=== PATIENT | male | born 1950 | race Caucasian/White ===

== ENCOUNTER 2023-01-24 17:41 | Inpatient (IN) | payer OTHER ==
--- NOTE | 2023-01-24 18:52 | RAD REPORT ---
EXAM DESCRIPTION: RAD - Lumbar Spine 3 Views - 01/24/2023 6:35 pm CLINICAL HISTORY: PAIN COMPARISON: COCCYX dated 06/10/2015 FINDINGS/IMPRESSION: Status post T11 through L3 fusion. Fracture of the left L3 screw with some back ing out of the hardware at this level is noted. There is some lucency around the right L3 screw also. Remote L1 compression fracture. Dextroscoliotic curvature noted. Gastrostomy tube.
[2023-01-24 19:46] LABS: Absolute Lymphocytes (CBC) 0.6 K/uL (0.7-4.9); Hematocrit 33.1 % (39.6-49.0); Lymphocytes % 4.6 % (15.3-44.8); MCV 97.8 fL (80-100); Platelets 221 thou/uL (152-406); RBC Red Blood Cell Count 3.39 M/uL (4.33-5.43)
--- NOTE | 2023-01-24 20:02 | RAD REPORT ---
EXAM DESCRIPTION: CT - Head Brain Wo Cont - 01/24/2023 7:54 pm CLINICAL HISTORY: fall, head injury COMPARISON: Head Brain Wo Cont dated 05/23/2016 TECHNIQUE: All CT scans are performed using dose optimization technique as appropriate and may inclu de automated exposure control or mA/KV adjustment according to patient size. FINDINGS: No intracranial hemorrhage, hydrocephalus or extra-axial fluid collection.No areas of brai n edema or evidence of midline shift. Similar postoperative changes at the right parietal lobe and ri ght sided colpocephaly . The paranasal sinuses and mastoids are clear. The calvarium is intact. Remote right parietal cranioto my. Left-sided cochlear implant. IMPRESSION: No acute intracranial abnormality.
[2023-01-24 20:08] LABS: Albumin 2.6 g/dL (3.4-5.0); Bilirubin Total 1.4 mg/dL (0.2-1.0); Potassium 3.8 mEq/L (3.5-5.1); Protein, Total 6.5 g/dL (6.4-8.2)
--- NOTE | 2023-01-24 20:10 | RAD REPORT ---
EXAM DESCRIPTION: CTAbdomen Pelvis Wo Contrast - 01/24/2023 7:54 pm CLINICAL HISTORY: ABD PAIN COMPARISON: COCCYX dated 06/10/2015 TECHNIQUE: CT of the abdomen and pelvis was performed. All CT scans are performed using dose optimization technique as appropriate and may include automated exposure control or mA/KV adjustment according to patient size. FINDINGS: Lower chest: Small bilateral effusions. Coronary artery calcifications. Likely atelectasis . Liver: Cirrhotic liver morphology. Biliary: No biliary ductal dilatation. Stomach: Gastrostomy tube. Duodenum: No significant focal abnormality. Pancreas: No significant abnormality. Spleen: No significant abnormality. Adrenal: No suspicious lesions. Kidney/ureter: Bilateral hydronephrosis. Left renal cyst. Retroperitoneum: No retroperitoneal adenopathy. Vascular: No aneurysm. Bowel: No significant focal abnormality. Peritoneum: No ascites or free air. Small fat containing right inguinal hernia. Bladder: Distended bladder. Reproductive: Mild prostatomegaly. Bones: Remote L1 compression fracture. T11 through L3 fusion. The left L3 screw is cracked. The right L3 screw is retracted but probably similar to prior. . Other: n/a IMPRESSION: Distended bladder with bilateral hydronephrosis likely secondary to urinary retention. S uggest De Los Santos catheter placement.
[2023-01-24 21:12] LABS: Specific Gravity 1.009 (1.005-1.030); Urine Bacteria 20-50 /HPF (<20); Urine Bilirubin NEGATIVE (Negative); Urine Blood 1+ (Negative); Urine Clarity Extremely Turbid (Clear); Urine Color Light-Orange (Yellow); Urine Glucose NEGATIVE (Negative); Urine Protein 1+ (Negative); Urine Urobilinogen Normal (Normal); Urine WBC Clump Occasional /HPF (None Seen); Urine pH 5.5 (5.0-7.0)
[2023-01-24] MEDS ORDERED: CEFTRIAXONE 1000 MG/VIAL ONE (22:07)
--- NOTE | 2023-01-24 22:20 | ER ---
Nurse's Notes [facility] Name: Lamberto Simpson Age: 72 yrs Sex: Male : 1950 Arrival Date: 01/24/2023 Time: 17:41 Bed 7 Private MD: Diagnosis: UTI/ Urinary tract infection, site not specified;Acute kidney failure, unspecified;Other hydronephrosis;Retention of urine, unspecified Presentation: 01/24 17:45 Chief complaint: Patient states: Family is concerned because patient has decreased ss appetite, and possibly infected feeding tube. Family reports that patient has not used feeding tube in 2-3 weeks and is supposed to be getting it taken out in the near future. Daughter states that patient's speech is a little more slurred today. HX of CVA with residual deficits. Coronavirus screen: Client denies travel out of the [place] in the last 14 days. Ebola Screen: Patient denies exposure to infectious person. Patient denies travel to an Ebola-affected area in the 21 days before illness onset. Initial Sepsis Screen: Does the patient meet any 2 criteria? No. Patient's initial sepsis screen is negative. Does the patient have a suspected source of infection? No. Patient's initial sepsis screen is negative. Risk Assessment: Do you want to hurt yourself or someone else? Patient reports no desire to harm self or others. Onset of symptoms was January 24, 2023. 17:45 Method Of Arrival: EMS: [facility] 17:45 Acuity: GRIFFIN 3 ss Historical: - Allergies: 18:01 No Known Allergies; ss - PMHx: 18:01 Hypertension; CVA; ss - Immunization history:: Client reports receiving the 2nd dose of the Covid vaccine. - Social history:: Smoking status: Patient/guardian denies using tobacco, Stopped _ months ago 2. Screenin:45 Nutritional screening: No deficits noted. Tuberculosis screening: Never had TB. ss 19:[address] [facility] ED Fall Risk Assessment (Adult) Score/Fall Risk Level 0 - 2 = Low Risk. Abuse as6 screen: Denies threats or abuse. Denies injuries from another. Assessment: 17:45 General: Behavior is cooperative, drowsy, Denies fever, Family reports that patient has ss been tolerated PO liquids and food for the past 2-3 weeks and is awaiting appointment to have G tube removed. Redness noted at insertion site. Family is concerned that it may be infected. Denies fever. Decreased appetite and increased slurred speech today. Famly reports that patient has had some slurred speech since Stroke in November. Respiratory: Airway is patent Respiratory effort is even, unlabored. Derm: Skin is intact, is healthy with good turgor, Skin is pink, warm \T\ dry. normal. 18:53 Reassessment: Lab at bedside. mb9 22:55 Reassessment: pts , Yanet, phone number; [phone]. mb9 01/25 13:49 Reassessment: attempt to call report , floor reports HS did not communicate that pt was iw assigned to room 213, Natasha will call me back. 16:45 Reassessment: report given to MADDI Kaur. iw Vital Signs: 01/24 17:45 BP 122 / 70; Pulse 83; Resp 16; Temp 98.7(O); Pulse Ox 97% on R/A; Weight 75.75 kg; ss 19:38 BP 106 / 69; Pulse 76; Resp 18 S; Pulse Ox 96% on R/A; as6 20:39 BP 137 / 61; Pulse 62; Resp 18 S; Pulse Ox 97% on R/A; as6 21:21 BP 149 / 70; Pulse 79; Resp 16 S; Pulse Ox 97% on R/A; as6 01/25 00:02 BP 139 / 65; Pulse 73; Resp 18 S; Pulse Ox 97% on R/A; as6 ED Course: 01/24 17:44 Patient arrived in ED. iw 17:45 Michelle Uribe FNP-C is PHCP. kb 17:45 Jose Renee MD is Attending Physician. kb 18:01 Triage completed. ss 18:01 Arm band placed on right wrist. ss 18:37 Lumbar Spine (3 Views) XRAY In Process Unspecified. EDMS 18:47 Placed in gown. Bed in low position. Call light in reach. Side rails up X 1. Client mb9 placed on continuous cardiac and pulse oximetry monitoring. NIBP monitoring applied. 19:38 Tong Esteves, MADDI is Primary Nurse. as6 19:38 Inserted saline lock: 20 gauge in left upper arm, using aseptic technique. Blood as6 collected. 20g long catheter, ultrasound guided. 19:56 CT Head Brain wo Cont In Process Unspecified. EDMS 19:56 Abdomen In Process Unspecified. EDMS 20:38 De Los Santos cath inserted, using sterile technique, 16 Fr., by me, balloon inflated, to as6 gravity drainage, urine specimen collected. returned cloudy urine. Patient tolerated well. 22:19 Abe Cabrera MD is Hospitalizing Provider. kb 22:20 Catalina Norton MD is Hospitalizing Provider. kb 23:09 Mian Parker is Hospitalizing Provider. kb 01/25 00:02 Provided Education on: need for admit. as6 00:03 No provider procedures requiring assistance completed. Patient admitted, IV remains in as6 place. Administered Medications: 01/24 22:03 Drug: Rocephin IV 1 grams Route: IV; Rate: calculated rate; Site: left upper arm; as6 01/25 00:03 Follow up: Response: No adverse reaction; IV Status: Completed infusion; IV Intake: [id number] Medication: 01/24 17:45 VIS not applicable for this client. ss Intake: 01/25 00:03 IV: 10ml; Total: 10ml. as6 Output: 01/24 21:22 Urine: 1500ml (De Los Santos); Total: 1500ml. as6 Outcome: 22:19 Decision to Hospitalize by Provider. kb 01/25 00:02 Admitted to ER Hold. Please see [facility] for further documentation. as6 Condition: stable Instructed on the need for admit. 15:56 Admitted to 17:05 Patient left the ED. iw Signatures: Dispatcher [employer] EDMS Michelle Uribe, [employer]ER-Leigha [employer]ER-Sheridan Damon, RN RN Sharifa Britton, RN MADDI ss Tong Esteves RN RN as6 Ana Foster, RN RN mb9 Corrections: (The following items were deleted from the chart) 15:57 15:56 Reassessment: attempt to call report , floor reports HS did not communicate that iw pt was assigned to room 241 iw
--- NOTE | 2023-01-24 22:20 | EDPHYS ---
Physician Documentation [facility] Name: Lamberto Simpson Age: 72 yrs Sex: Male : 1950 Arrival Date: 01/24/2023 Time: 17:41 Bed 7 Private MD: ED Physician Jose Renee HPI: 01/24 22:40 This 72 yrs old Male presents to ER via EMS with complaints of Problem With Feeding kb Tube. 23:09 The patient presents with abdominal pain. Onset: The symptoms/episode began/occurred kb today. The symptoms do not radiate. Associated signs and symptoms: Pertinent positives: low back pain. The symptoms are described as constant. Modifying factors: The symptoms are alleviated by nothing, the symptoms are aggravated by nothing. Severity of pain: At its worst the pain was moderate in the emergency department the pain is unchanged. The patient has not experienced similar symptoms in the past. The patient has been recently seen by a physician:. Daughter reports patient complaining of low back pain today as well as abdominal pain. States patient fell yesterday. Denies LOC. States patient may have [place]. Reports patient recently had indwelling De Los Santos catheter removed on Tuesday in PCPs office. had to do a straight cath yesterday to empty patient's bladder. States patient has been urinating since then. Reports abdominal pain and distention today. Also request PEG tube be removed. States patient has had it for a while but has not used it in at least 3 weeks and they have an appointment with Dr. Garza to have it removed. States they are concerned that it is getting infected and is causing skin irritation.. Historical: - Allergies: 18:01 No Known Allergies; ss - PMHx: 18:01 Hypertension; CVA; ss - Immunization history:: Client reports receiving the 2nd dose of the Covid vaccine. - Social history:: Smoking status: Patient/guardian denies using tobacco, Stopped _ months ago 2. ROS: 23:05 Constitutional: Negative for fever, chills, and weight loss. kb 23:05 Abdomen/GI: Positive for abdominal pain. 23:05 Back: Positive for pain at rest, pain with movement, of the lumbar area. 23:05 All other systems are negative. Exam: 23:07 Constitutional: This is a well developed, well nourished patient who is awake, alert, kb and in no acute distress. Head/Face: Normocephalic, atraumatic. ENT: Moist Mucous membranes Cardiovascular: Regular rate and rhythm with a normal S1 and S2. No gallops, murmurs, or rubs. No pulse deficits. Respiratory: Respirations even and unlabored. No increased work of breathing. Talking in full sentences Skin: Warm, dry with normal turgor. Normal color. MS/ Extremity: Pulses equal, no cyanosis. Neurovascular intact. Full, normal range of motion. 23:07 Abdomen/GI: Inspection: distension, Bowel sounds: normal, Palpation: soft, in all quadrants, mild abdominal tenderness, in the suprapubic area. 23:07 Neuro: Exam negative for acute changes. Vital Signs: 17:45 BP 122 / 70; Pulse 83; Resp 16; Temp 98.7(O); Pulse Ox 97% on R/A; Weight 75.75 kg; ss 19:38 BP 106 / 69; Pulse 76; Resp 18 S; Pulse Ox 96% on R/A; as6 20:39 BP 137 / 61; Pulse 62; Resp 18 S; Pulse Ox 97% on R/A; as6 21:21 BP 149 / 70; Pulse 79; Resp 16 S; Pulse Ox 97% on R/A; as6 01/25 00:02 BP 139 / 65; Pulse 73; Resp 18 S; Pulse Ox 97% on R/A; as6 MDM: 01/24 17:46 Patient medically screened. kb 23:08 Differential diagnosis: non-specific abd pain, Pyelonephritis, urinary tract infection, kb urinary retention. Data reviewed: vital signs, nurses notes. Consideration of Admission/Observation Patient was admitted/placed on observation. Escalation of care including admission/observation considered. Management of patient was discussed with the following: Hospitalist: ZEB Parra accepts pt for admission under Dr Parker. Historians other than the Patient: EMS: [facility]. Spouse/Significant Other: . Daughter/Son: daughter. Counseling: I had a detailed discussion with the patient and/or guardian regarding: the historical points, exam findings, and any diagnostic results supporting the discharge/admit diagnosis, lab results, radiology results, the need for further work-up and treatment in the hospital. 01/24 17:55 Order name: CBC with Diff; Complete Time: 19:51 kb 01/24 17:55 Order name: CMP; Complete Time: 20:10 kb 01/24 17:55 Order name: Lipase; Complete Time: 20:10 kb 01/24 17:55 Order name: Urinalysis w/ reflexes; Complete Time: 21:26 kb 01/24 21:26 Order name: Urine Culture EDAZ 01/24 21:26 Order name: Lactate w/ 2H reflex if indic.; Complete Time: 22:19 kb 01/24 21:26 Order name: Blood Culture Adult (2) kb 01/24 23:16 Order name: Urinalysis w/ reflexes EDAZ 01/24 23:16 Order name: Basic Metabolic Panel EDAZ 01/24 23:16 Order name: Basic Metabolic Panel EDAZ 01/24 23:16 Order name: CBC with Automated Diff EDAZ 01/24 23:16 Order name: CBC with Automated Diff EDAZ 01/24 23:16 Order name: Magnesium EDAZ 01/24 23:16 Order name: Magnesium [facility] 01/25 02:33 Order name: CREATININE WHOLE BLOOD EDAZ 01/24 17:55 Order name: CT Head Brain wo Cont; Complete Time: 20:10 kb 01/24 17:55 Order name: Lumbar Spine (3 Views) XRAY; Complete Time: 18:58 kb 01/24 19:53 Order name: Abdomen ; Complete Time: 20:14 EDAZ 01/24 23:16 Order name: CONS Physician Consult EDAZ 01/24 23:16 Order name: Renal EDAZ 01/24 17:55 Order name: IV Saline Lock; Complete Time: 18:41 kb 01/24 17:55 Order name: Labs collected and sent; Complete Time: 19:40 kb 01/24 20:14 Order name: De Los Santos; Complete Time: 20:38 kb Administered Medications: 22:03 Drug: Rocephin IV 1 grams Route: IV; Rate: calculated rate; Site: left upper arm; as6 01/25 00:03 Follow up: Response: No adverse reaction; IV Status: Completed infusion; IV Intake: [id number] Disposition Summary: 01/24/23 22:19 Hospitalization Ordered Condition: Stable kb Problem: new kb Symptoms: are unchanged kb Bed/Room Type: Standard kb Provider: Mian Parker(07/24/23 23:09) kb Hospitalization Status: Observation(01/24/23 23:13) kb Location: Telemetry/MedSurg (observation)(01/25/23 15:37) ja1 Room Assignment: 213(01/25/23 15:37) jaRomeo Diagnosis - UTI/ Urinary tract infection, site not specified kb - Acute kidney failure, unspecified kb - Other hydronephrosis kb - Retention of urine, unspecified kb Forms: - Medication Reconciliation Form kb - SBAR form kb Signatures: Dispatcher [employer] EDMS Michelle Uribe, REPAIR MECHANIC-C REPAIR MECHANIC-Ckb Sharifa Britton, RN RN ss Kelly Walter RN RN cg Brad Guzman RN RN ja1 Tong Esteves RN RN as6 Corrections: (The following items were deleted from the chart) 01/24 19:53 17:56 Abdomen Pelvis W Con+CT.RAD.BRZ ordered. EDAZ EDAZ 22:20 22:19 Abe Cabrera kb kb 23:09 22:20 Catalina Norton kb 23:13 22:19 Inpatient Admission kb kb 23:13 22:19 Telemetry/MedSurg (Inpatient) kb kb 23:13 22:19 kb 01/25 00:15 01/24 23:13 Telemetry/MedSurg (observation) kb 01/25 00:15 01/24 23:13 kb 01/25 14:54 00:15 [facility] ER HOLD cg ja1 14:54 00:15 ERHOLD- cg ja1 14:55 14:54 Telemetry/MedSurg (observation) ja1 ja1 14:55 14:54 219 ja1 ja1 15:37 14:55 [facility] ER HOLD ja1 ja1 15:37 14:55 ERHOLD- ja1 ja1
--- NOTE | 2023-01-24 23:10 | P.HP ---
Certification for Inpatient Patient admitted to: Observation With expected LOS: <2 Midnights Patient will require the following post-hospital care: None Practitioner: I am a practitioner with admitting privileges, knowledge of patient current condition, hospital course, and medical plan of care. Services: Services provided to patient in accordance with Admission requirements found in Title 42 Section 412.3 of the Code of Federal Regulations Patient History Date of Service: 01/25/23 Reason for admission: abdominal pain History of Present Illness: 72-year-old male with a past medical history of hypertension, CVA, reports chronic anticoagulation Eliquis, presents to the emergency room for abdominal pain. is at bedside is primary historian, reports had a Zhang catheter removed at nephrology office or Tuesday. Reports has been incontinent, she reported having to straight cath him yesterday at home. Today presents to the emergency room with suprapubic abdominal tenderness. In ER Zhang inserted 1500 cc urine obtained. Patient has a PEG tube is supposed to follow-up with surgery for removal. reports reports PEG tube is irritated at incision site. Old dried drainage on PEG tube. Patient had a CVA in November, has expressive aphasia, is very hard of hearing. reports patient tolerating p.o. intake on regular diet, swallow pills whole. reports had an associated fall due to low back pain. He has a history of spinal fusions and chronic back pain. Pain located to the lumbar region. No reported fever, nausea vomiting, diarrhea chest pain, dizziness. Patient is going to be admitted for acute cystitis, acute on chronic renal failure, obstructive hydronephrosis, Dr. Blanco notified in ER will see the patient in a.m. Allergies No Known Drug Allergies Allergy (Unverified 10/02/14 19:13) Unknown Home Medications: Baclofen [Lioresal] 10 mg PO BID 05/27/15 Levetiracetam 100 mg SUBQ BID 05/27/15 cloNIDine HCL [Catapres] 0.1 mg PO TID 05/27/15 - Past Medical/Surgical History Diabetic: No -: HYPERTENSION -: HX CVA -: expressive aphaisa -: [place] CHIN -: Chronic anticoagulation -: SKIN GRAFTS FROM BLE -: RECONSTRUCTION OF ARMS/HANDS -: CERVICAL FUSION -: Peg placement - Social History Smoking Status: Never smoker Alcohol use: No CD- Drugs: Yes Caffeine use: No Review of Systems 10-point ROS is otherwise unremarkable Physical Examination - Physical Exam General: Alert, Oriented x3, Cooperative HEENT: Atraumatic, PERRLA Neck: Supple, 2+ carotid pulse no bruit Respiratory: Clear to auscultation bilaterally, Normal air movement Cardiovascular: Regular rate/rhythm, Normal S1 S2 Capillary refill: <2 Seconds Gastrointestinal: Normal bowel sounds, Other (Suprapubic tenderness) Integumentary: Other (PEG tube insertion side old dried drainage) Neurological: Other (Expressive aphasia), Abnormal speech - Studies Laboratory Data (last 24 hrs) 01/24/23 19:36: Sodium 137, Potassium 3.8, BUN 26 H, Creatinine 1.85 H, Glucose 89, Total Bilirubin 1.4 H, AST 21, ALT 26, Alkaline Phosphatase 271 H, Lipase 15 01/24/23 19:36: WBC 13.20 H, Hgb 11.0 L, Hct 33.1 L, Plt Count 221 Assessment and Plan - Plan Assessment/Plan abdominal pain acute renal failure secondary bladder retention Other hydronephrosis Retention of urine, unspecified HX CVA HX falls Chronic back pain Fracture of the left L3 screw with some backing out of the hardware Remote L1 compression fracture. Aphasia peg tube DVT pplx abdominal pain CT Abd/pelvis IMPRESSION: Distended bladder with bilateral hydronephrosis likely secondary to urinary retention. Suggest Zhang catheter placement. 1500 cc removed after zhang insertion acute renal failure Other hydronephrosis Retention of urine, unspecified Dr. Blanco notified in ER will see the patient in a.m. Acute kidney injury unknown baseline, BUN 26, creatinine 1.85, estimated GFR 38, gentle hydration, IVF Renal dose meds acute cystitis CBC leukocytosis WBCs 13.20, early left shift at 85.7, urinalysis 1+ blood, 500 leukoesterase, 11-20 RBCs, 20-50 bacteria,A Zosyn ordered Q 6 HX CVA, Aphasia HX falls -CT head IMPRESSION: No acute intracranial abnormality. Fall preacutions, PT eval Chronic back pain Fracture of the left L3 screw with some backing out of the hardware Remote L1 compression fracture. -Lumbar Spine 3 Views FINDINGS/IMPRESSION: Status post T11 through L3 fusion. Fracture of the left L3 screw with some backing out of the hardware at this level is noted. There is some lucency around the right L3 screw also. Remote L1 compression fracture. Dextroscoliotic curvature noted. Gastrostomy tube. consider ortho consult, Prn analgesics, take Tramadol, Tylenol at home Peg Tube Wound care consulted to evaluate DVT chronic anticoagultion Eloquis Full Code Diet renal Discharge Plan: Home Plan to discharge in: 24 Hours - Advance Directives Does patient have a Living Will: No Does patient have a Durable POA for Healthcare: No - Code Status/Comfort Care Code Status Assessed: Yes Code Status: Full Code Physician Review: Patient Assessed, Agree with Above Assessment and Plan Critical Care: No Time Spent Managing Pts Care (In Minutes): 50
[2023-01-24] MEDS ORDERED: ONDANSETRON 4 MG/2 ML VIAL IV PRN (23:14)
[2023-01-24] MEDS ORDERED: ACETAMINOPHEN 500 MG TAB PO PRN (23:14)
[2023-01-24] MEDS: NA CHLORIDE 0.9% 1,000 ML IV SCH (23:45)
[2023-01-25 00:32] VITALS: BMI 24.6
[2023-01-25] MEDS ORDERED: NA CHLORIDE 0.9% 1,000 ML ONE (01:14)
[2023-01-25 04:19] LABS: Absolute Lymphocytes (CBC) 0.6 K/uL (0.7-4.9); Hematocrit 32.2 % (39.6-49.0); Lymphocytes % 4.8 % (15.3-44.8); MCV 97.1 fL (80-100); MPV 8.1 fL (7.6-11.3); Platelets 211 thou/uL (152-406); RBC Red Blood Cell Count 3.32 M/uL (4.33-5.43)
[2023-01-25 04:23] LABS: Magnesium 1.9 mg/dL (1.6-2.4); Potassium 3.5 mEq/L (3.5-5.1)
[2023-01-25] MEDS ORDERED: PIPER TAZO 3.375 GM in NA CHLORIDE 0.9% 100 ML IV SCH ×4 (06:00)
[2023-01-25] MEDS: CEFTRIAXONE 1,000 MG in NA CHLORIDE 0.9% 50 ML IVPB SCH (14:33)
[2023-01-25] MEDS ORDERED: CEFTRIAXONE 1000 MG/VIAL ONE (15:58)
--- NOTE | 2023-01-25 17:51 | P.PN ---
Subjective Date of Service: 01/25/23 Chief Complaint: abdominal pain Patient has no new complaint. He denies any flank pain. He states that his appetite is good. He is hard of hearing. Physical Examination - Vital Signs Temperature: 98.7 F Blood Pressure: 139/65 Pulse: 73 Respirations: 18 Pulse Ox (%): 96 - Studies Laboratory Data (last 24 hrs) 01/24/23 19:36: Sodium 137, Potassium 3.8, BUN 26 H, Creatinine 1.85 H, Glucose 89, Total Bilirubin 1.4 H, AST 21, ALT 26, Alkaline Phosphatase 271 H, Lipase 15 01/24/23 19:36: WBC 13.20 H, Hgb 11.0 L, Hct 33.1 L, Plt Count 221 Assessment And Plan - Plan Physical Exam General: Alert, Oriented x3, Cooperative Neck: Supple, no elevated JVD. Respiratory: Clear to auscultation bilaterally, Normal air movement Cardiovascular: Regular rate/rhythm, Normal S1 S2 Gastrointestinal: Normal bowel sounds, no tenderness. Integumentary: Other (PEG tube insertion side old dried drainage) Neurological: No focal motor deficit. Diagnosis Acute renal failure secondary bladder retention Bilateral hydronephrosis Acute urinary retention HX CVA HX falls Chronic back pain Fracture of the left L3 screw with some backing out of the hardware Remote L1 compression fracture. Abdominal pain Secondary to distended bladder. Relieved after bladder decompression with De Los Santos catheter Acute renal failure hydronephrosis Acute retention of urine. Acute kidney injury unknown recent baseline. IV hydration Renal dose meds. Monitor for improvement. Repeat renal ultrasound in the near future to reassess hydronephrosis. Acute cystitis IV Rocephin. Follow urine culture. HX CVA, Aphasia HX falls Fall preacutions, PT. Chronic back pain Fracture of the left L3 screw with some backing out of the hardware Remote L1 compression fracture. -Lumbar Spine 3 Views FINDINGS/IMPRESSION: Status post T11 through L3 fusion. Fracture of the left L3 screw with some backing out of the hardware at this level is noted. There is some lucency around the right L3 screw also. Remote L1 compression fracture. Dextroscoliotic curvature noted. Gastrostomy tube. Prn analgesics. Peg Tube Wound care consulted to evaluate DVT chronic anticoagultion Eliquis
[2023-01-25] MEDS: NA CHLORIDE 0.9% 1,000 ML IV SCH (18:30)
[2023-01-25] MEDS: ALPRAZOLAM 0.25 MG TABLET PO PRN (20:23)
[2023-01-25] MEDS: BACLOFEN 10 MG TAB PO SCH (20:24)
--- NOTE | 2023-01-25 21:40 | P.CNS ---
Date of Consult: 01/25/23 Reason for Consult: MERARI Requesting Physician: cece burt Chief Complaint: abdominal pain History of Present Illness: 72-year-old male with a past medical history of hypertension, CVA, reports chronic anticoagulation Eliquis, presents to the emergency room for abdominal pain. is at bedside is primary historian, reports had a De Los Santos catheter removed at nephrology office or Tuesday. Reports has been incontinent, she reported having to straight cath him yesterday at home. Today presents to the emergency room with suprapubic abdominal tenderness. In ER De Los Santos inserted 1500 cc urine obtained. Patient has a PEG tube is supposed to follow-up with surgery for removal. reports reports PEG tube is irritated at incision site. Old dried drainage on PEG tube. Patient had a CVA in November, has expressive aphasia, is very hard of hearing. reports patient tolerating p.o. intake on regular diet, swallow pills whole. reports had an associated fall due to low back pain. He has a history of spinal fusions and chronic back pain. Pain located to the lumbar region. No reported fever, nausea vomiting, diarrhea chest pain, dizziness. Patient is going to be admitted for acute cystitis, acute on chronic renal failure, obstructive hydronephrosis, Dr. Blanco notified in ER will see the patient in a.m. [id number] 22:40 This 72 yrs old Male presents to ER via EMS with complaints of Problem With Feeding kb Tube. 23:09 The patient presents with abdominal pain. Onset: The symptoms/episode began/occurred kb today. The symptoms do not radiate. Associated signs and symptoms: Pertinent positives: low back pain. The symptoms are described as constant. Modifying factors: The symptoms are alleviated by nothing, the symptoms are aggravated by nothing. Severity of pain: At its worst the pain was moderate in the emergency department the pain is unchanged. The patient has not experienced similar symptoms in the past. The patient has been recently seen by a physician:. Daughter reports patient complaining of low back pain today as well as abdominal pain. States patient fell yesterday. Denies LOC. States patient may have [place]. Reports patient recently had indwelling De Los Santos catheter removed on Tuesday in PCPs office. had to do a straight cath yesterday to empty patient's bladder. States patient has been urinating since then. Reports abdominal pain and distention today. Also request PEG tube be removed. [facility] patient has had it for a while but has not used it in at least 3 weeks and they have an appointment with Dr. Garza to have it removed. States they are concerned that it is getting infected and is causing skin irritation.. Allergies No Known Drug Allergies Allergy (Verified 01/25/23 18:30) Unknown Home medications list reviewed: Yes Home Medications: Baclofen [Lioresal] 10 mg PO BID 05/27/15 Levetiracetam 100 mg SUBQ BID 05/27/15 cloNIDine HCL [Catapres] 0.1 mg PO TID 05/27/15 - Past Medical/Surgical History Diabetic: No -: HYPERTENSION -: HX CVA -: expressive aphaisa -: [place] -: Chronic anticoagulation -: CKD (Dr. Blanco) -: SKIN GRAFTS FROM BLE -: RECONSTRUCTION OF ARMS/HANDS -: CERVICAL FUSION -: Peg placement - Social History Alcohol use: No CD- Drugs: Yes Caffeine use: No Place of Residence: Home Review of Systems 10-point ROS is otherwise unremarkable Physical Examination Temp Pulse Resp BP Pulse Ox 101.7 F H 73 18 139/65 96 01/25/23 20:26 01/25/23 18:01 01/25/23 18:01 01/25/23 18:01 01/25/23 18:01 General: In no apparent distress, Cooperative HEENT: Atraumatic Neck: Supple Respiratory: Normal air movement Cardiovascular: No edema, Regular rate/rhythm Gastrointestinal: Soft and benign, Non-distended Musculoskeletal: No clubbing, No contractures Integumentary: No rashes, No cyanosis Neurological: Normal speech Blood work reviewed in the chart. Imagings Data: EXAM DESCRIPTION: CTAbdomen Pelvis Wo Contrast - 01/24/2023 7:54 pm CLINICAL HISTORY: ABD PAIN COMPARISON: COCCYX dated 06/10/2015 TECHNIQUE: CT of the abdomen and pelvis was performed. All CT scans are performed using dose optimization technique as appropriate and may include automated exposure control or mA/KV adjustment according to patient size. FINDINGS: Lower chest: Small bilateral effusions. Coronary artery calcifications. Likely atelectasis . Liver: Cirrhotic liver morphology. Biliary: No biliary ductal dilatation. Stomach: Gastrostomy tube. Duodenum: No significant focal abnormality. Pancreas: No significant abnormality. Spleen: No significant abnormality. Adrenal: No suspicious lesions. Kidney/ureter: Bilateral hydronephrosis. Left renal cyst. Retroperitoneum: No retroperitoneal adenopathy. Vascular: No aneurysm. Bowel: No significant focal abnormality. Peritoneum: No ascites or free air. Small fat containing right inguinal hernia. Bladder: Distended bladder. Reproductive: Mild prostatomegaly. Bones: Remote L1 compression fracture. T11 through L3 fusion. The left L3 screw is cracked. The right L3 screw is retracted but probably similar to prior. . Other: n/a IMPRESSION: Distended bladder with bilateral hydronephrosis likely secondary to urinary retention. Suggest De Los Santos catheter placement. EXAM DESCRIPTION: RAD - Lumbar Spine 3 Views - 01/24/2023 6:35 pm CLINICAL HISTORY: PAIN COMPARISON: COCCYX dated 06/10/2015 FINDINGS/IMPRESSION: Status post T11 through L3 fusion. Fracture of the left L3 screw with some backing out of the hardware at this level is noted. There is some lucency around the right L3 screw also. Remote L1 compression fracture. Dextroscoliotic curvature noted. Gastrostomy tube. EXAM DESCRIPTION: CT - Head Brain Wo Cont - 01/24/2023 7:54 pm CLINICAL HISTORY: fall, head injury COMPARISON: Head Brain Wo Cont dated 05/23/2016 TECHNIQUE: All CT scans are performed using dose optimization technique as appropriate and may include automated exposure control or mA/KV adjustment according to patient size. FINDINGS: No intracranial hemorrhage, hydrocephalus or extra-axial fluid collection.No areas of brain edema or evidence of midline shift. Similar postoperative changes at the right parietal lobe and right sided colpocephaly . The paranasal sinuses and mastoids are clear. The calvarium is intact. Remote right parietal craniotomy. Left-sided cochlear implant. IMPRESSION: No acute intracranial abnormality. Conclusions/Impression: Stage I MERARI in the setting of hypovolemia CKD III with Proteinuria -No NSAIDs -Continue IVF with NS Hypokalemia -Replete prn Hypoalbuminemia -Consider protein supplementation Anemia in chronic illness -Monitor H&H BPH with LUTS Urinary Retention -Continue De Los Santos Acute infective cystitis with hematuria -Follow up culture -Continue abx Hospitalist and ER notes reviewed. Thank you kindly for the consultation
[2023-01-26] MEDS: NA CHLORIDE 0.9% 1,000 ML IV SCH (05:30)
[2023-01-26 07:00] LABS: Absolute Lymphocytes (CBC) 0.4 K/uL (0.7-4.9); Hematocrit 31.9 % (39.6-49.0); Lymphocytes % 3.4 % (15.3-44.8); MCV 96.5 fL (80-100); MPV 8.5 fL (7.6-11.3); Platelets 227 thou/uL (152-406)
[2023-01-26 07:10] LABS: Albumin 2.2 g/dL (3.4-5.0); Phosphorus 2.3 mg/dL (2.5-4.9); Potassium 3.2 mEq/L (3.5-5.1)
[2023-01-26 08:35] LABS: Blood Morphology Comment NOT SEEN (NOT SEEN); Platelet Estimate ADEQ
[2023-01-26] MEDS: POTASS/SODIUM PHOSPHATE 1 PKT POWD.PACK PO SCH ×3 (08:43→10:14)
[2023-01-26] MEDS: CEFTRIAXONE 1,000 MG in NA CHLORIDE 0.9% 50 ML IVPB SCH (08:43)
[2023-01-26] MEDS: BACLOFEN 10 MG TAB PO SCH ×2 (08:43→19:57)
[2023-01-26] MEDS ORDERED: POTASSIUM 25 MEQ EFFERV TAB PO ONE (09:00)
--- NOTE | 2023-01-26 09:57 | P.PN ---
Date of Service: 01/26/23 Vital Signs Temp Pulse Resp BP Pulse Ox 98.4 F 81 18 116/61 95 01/26/23 08:00 01/26/23 08:00 01/26/23 08:00 01/26/23 08:00 01/26/23 08:00 Medications Acetaminophen (Acetaminophen 500 Mg Tab) 500 mg PO Q4HP PRN PRN Reason: Pain scale 2-4 (Mild) Last Admin: 01/25/23 20:26 Dose: 500 mg Alprazolam (Alprazolam 0.25 Mg Tablet) 0.25 mg PO BEDTIME PRN PRN PRN Reason: INSOMNIA Last Admin: 01/25/23 20:23 Dose: 0.25 mg Baclofen (Baclofen 10 Mg Tab) 10 mg PO BID [facility] Last Admin: 01/26/23 08:43 Dose: 10 mg Sodium Chloride (Ns 1000 Ml Ivbag) 1,000 mls @ 75 mls/hr IV .[id number] [facility] Last Admin: 01/26/23 05:30 Dose: 1,000 mls Ceftriaxone Sodium 1,000 mg/ (Sodium Chloride) 50 mls @ 100 mls/hr IVPB DAILY [facility]; Protocol Last Admin: 01/26/23 08:43 Dose: 50 mls Ondansetron HCl (Ondansetron 4 Mg/2 Ml Vial) 4 mg IV Q6HP PRN PRN Reason: NAUSEA / VOMITING Potassium Phos/Sodium Phos (Potass/Sodium Phosphate 1 Pkt Powd.Pack) 1 pkt PO Q1H [facility] Stop: 01/26/23 10:01 Last Admin: 01/26/23 09:35 Dose: 1 pkt Sodium Chloride (Flush Normal Saline 10 Ml) 10 ml IV BID [facility] Last Admin: 01/26/23 08:43 Dose: 10 ml Tramadol HCl (Tramadol Hcl 50 Mg Tab) 50 mg PO Q6H PRN PRN Reason: Pain scale 5-7 (Moderate) Lab Results (last 24 hrs) 01/26/23 06:38: Sodium 142 D, Potassium 3.2 L, Chloride 111 H, Carbon Dioxide 26, Anion Gap 8.2, BUN 20 H, Creatinine 1.29, Est GFR (CKD-EPI) 59 L, Glucose 108 H, Calcium 8.0 L, Phosphorus 2.3 L, Albumin 2.2 L 01/26/23 06:38: WBC 11.30 H, RBC 3.30 L, Hgb 10.7 L, Hct 31.9 L, MCV 96.5, MCH 32.3, MCHC 33.4, RDW 13.9, Plt Count 227, MPV 8.5, Neutrophils % 90.1 H, Lym phocytes % 3.4 L, Monocytes % 6.0, Eosinophils % 0.2, Basophils % 0.3, Absolute Neutrophils 10.2 H, Segmented Neutrophils 95 H, Absolute Lymphocytes 0.4 L, Lymphocytes 3 L, Monocytes 2, Absolute Monocytes 0.7, Absolute Eosinophils 0.0, Absolute Basophils 0.0, Platelet Estimate Adeq, Morphology Comment Not seen Microbiology Results 01/24/23 20:36 Clean Catch Urine [place] Count - Preliminary >100,000 CFU/ML. 01/24/23 20:36 Clean Catch Urine - Preliminary 01/24/23 21:58 Blood - Blood Aerobic Blood Culture - Preliminary No growth in 24 hours. 01/24/23 21:58 Blood - Blood Anaerobic Blood Culture - Preliminary No growth in 24 hours. 01/24/23 21:42 Blood - Blood Aerobic Blood Culture - Preliminary No growth in 24 hours. 01/24/23 21:42 Blood - Blood Anaerobic Blood Culture - Preliminary No growth in 24 hours. Assessment/ Plan: Nephrology No chest pain No dyspnea Feeling better today. Asking about going home. No acute events overnight Vitals, medications, blood work and imaging reviewed in the chart General: In no apparent distress, Cooperative HEENT: Atraumatic Neck: Supple Respiratory: Normal air movement Cardiovascular: No edema, Regular rate/rhythm Gastrointestinal: Soft and benign, Non-distended Musculoskeletal: No clubbing, No contractures Integumentary: No rashes, No cyanosis Neurological: Normal speech. Poor hearing. Blood work reviewed in the chart. Imagings Data: EXAM DESCRIPTION: CTAbdomen Pelvis Wo Contrast - 01/24/2023 7:54 pm CLINICAL HISTORY: ABD PAIN COMPARISON: COCCYX dated 06/10/2015 TECHNIQUE: CT of the abdomen and pelvis was performed. All CT scans are performed using dose optimization technique as appropriate and may include automated exposure control or mA/KV adjustment according to patient size. FINDINGS: Lower chest: Small bilateral effusions. Coronary artery calcifications. Likely atelectasis . Liver: Cirrhotic liver morphology. Biliary: No biliary ductal dilatation. Stomach: Gastrostomy tube. Duodenum: No significant focal abnormality. Pancreas: No significant abnormality. Spleen: No significant abnormality. Adrenal: No suspicious lesions. Kidney/ureter: Bilateral hydronephrosis. Left renal cyst. Retroperitoneum: No retroperitoneal adenopathy. Vascular: No aneurysm. Bowel: No significant focal abnormality. Peritoneum: No ascites or free air. Small fat containing right inguinal hernia. Bladder: Distended bladder. Reproductive: Mild prostatomegaly. Bones: Remote L1 compression fracture. T11 through L3 fusion. The left L3 screw is cracked. The right L3 screw is retracted but probably similar to prior. . Other: n/a IMPRESSION: Distended bladder with bilateral hydronephrosis likely secondary to urinary retention. Suggest De Los Santos catheter placement. EXAM DESCRIPTION: RAD - Lumbar Spine 3 Views - 01/24/2023 6:35 pm CLINICAL HISTORY: PAIN COMPARISON: COCCYX dated 06/10/2015 FINDINGS/IMPRESSION: Status post T11 through L3 fusion. Fracture of the left L3 screw with some backing out of the hardware at this level is noted. There is some lucency around the right L3 screw also. Remote L1 compression fracture. Dextroscoliotic curvature noted. Gastrostomy tube. EXAM DESCRIPTION: CT - Head Brain Wo Cont - 01/24/2023 7:54 pm CLINICAL HISTORY: fall, head injury COMPARISON: Head Brain Wo Cont dated 05/23/2016 TECHNIQUE: All CT scans are performed using dose optimization technique as appropriate and may include automated exposure control or mA/KV adjustment according to patient size. FINDINGS: No intracranial hemorrhage, hydrocephalus or extra-axial fluid collection.No areas of brain edema or evidence of midline shift. Similar postoperative changes at the right parietal lobe and right sided colpocephaly . The paranasal sinuses and mastoids are clear. The calvarium is intact. Remote right parietal craniotomy. Left-sided cochlear implant. IMPRESSION: No acute intracranial abnormality. Conclusions/Impression: Stage I MERARI in the setting of hypovolemia CKD III with Proteinuria -No NSAIDs -Change IVF with 1/2NS Hypokalemia -Replete as ordered Hypophosphatemia -Replete as ordered Hypoalbuminemia -Consider protein supplementation Anemia in chronic illness -Monitor H&H BPH with LUTS Urinary Retention -Continue De Los Santos Acute infective cystitis with hematuria -Follow up culture -Continue abx Hospitalist note reviewed.
[2023-01-26] MEDS ORDERED: DRISDOL (VITAMIN D=ERGOCALCIFEROL) 50000 UNIT CAP PO SCH (10:00)
[2023-01-26] MEDS: NACHLORIDE 0.45% 1,000 ML IV SCH ×2 (10:13→19:58)
--- NOTE | 2023-01-26 14:41 | P.CNS ---
Date of Consult: 01/26/23 Reason for Consult: Cystitis Requesting Physician: cece burt Chief Complaint: abdominal pain History of Present Illness: Patient is a 72 yo male with a history of hypertension, recent CVA in November 2022, hearing loss and expressive aphasia who presented to the ED with complaints of lower abdominal pain / suprapubic pain. Patient reportedly had a zhang catheter which was removed on 01/21 at his graduate assistant's office and has been experiencing urinary retention since catheter removal. CT abdomen/pelvis obtained in ED revealing distended bladder with bilateral hydronephrosis. A zhang catheter was placed in ED which drained 1500 cc urine. Nephrology on case. Urine culture with 4+ gram negative rods, ID was consulted. Allergies No Known Drug Allergies Allergy (Verified 01/25/23 18:30) Unknown Home medications list reviewed: Yes Home Medications: Baclofen [Lioresal] 10 mg PO BID 05/27/15 Levetiracetam 100 mg SUBQ BID 05/27/15 cloNIDine HCL [Catapres] 0.1 mg PO TID 05/27/15 - Past Medical/Surgical History Diabetic: No -: HYPERTENSION -: HX CVA -: expressive aphaisa -: [place]MM[place] -: Chronic anticoagulation -: CKD (Dr. Blanco) -: SKIN GRAFTS FROM BLE -: RECONSTRUCTION OF ARMS/HANDS -: CERVICAL FUSION -: Peg placement - Social History Alcohol use: No CD- Drugs: Yes Caffeine use: No Place of Residence: Home Review of Systems 10-point ROS is otherwise unremarkable General: Weakness Physical Examination Temp Pulse Resp BP Pulse Ox 98.6 F 77 18 136/86 96 01/26/23 12:00 01/26/23 12:00 01/26/23 12:00 01/26/23 12:00 01/26/23 12:00 General: In no apparent distress, Oriented x3, Cooperative HEENT: Atraumatic Neck: Supple, JVD not distended Respiratory: Clear to auscultation bilaterally, Normal air movement Cardiovascular: No edema, Regular rate/rhythm Gastrointestinal: Normal bowel sounds, Soft and benign, Non-distended, Other (PEG tube) Musculoskeletal: No clubbing, No contractures Integumentary: No rashes, No tenderness/swelling Neurological: Other (Hearing loss) Urinary: Zhang catheter Laboratory Data - Reviewed Microbiology Data - Reviewed Imagings Data: - CT abdomen pelvis 01/24: FINDINGS: Lower chest: Small bilateral effusions. Coronary artery calcifications. Likely atelectasis . Liver: Cirrhotic liver morphology. Biliary: No biliary ductal dilatation. Stomach: Gastrostomy tube. Duodenum: No significant focal abnormality. Pancreas: No significant abnormality. Spleen: No significant abnormality. Adrenal: No suspicious lesions. Kidney/ureter: Bilateral hydronephrosis. Left renal cyst. Retroperitoneum: No retroperitoneal adenopathy. Vascular: No aneurysm. Bowel: No significant focal abnormality. Peritoneum: No ascites or free air. Small fat containing right inguinal hernia. Bladder: Distended bladder. Reproductive: Mild prostatomegaly. Bones: Remote L1 compression fracture. T11 through L3 fusion. The left L3 screw is cracked. The right L3 screw is retracted but probably similar to prior. . Other: n/a IMPRESSION: Distended bladder with bilateral hydronephrosis likely secondary to urinary retention. Suggest Zhang catheter placement. - CT Head 01/24: "IMPRESSION: No acute intracranial abnormality." Conclusions/Impression: Problem List Urinary Tract Infection Urinary Retention Bilateral Hydronephrosis BPH Hypertension CKD III Hx CVA (November 2022) PEG tube Anemia Severe PCM Urinary Tract Infection, Complicated - CT abdomen pelvis 01/24: Bilateral hydronephrosis. Left renal cyst. Distended bladder. Mild prostatomegaly - Urine culture 01/24: 4+ gram-negative rods ; colony count >100,000 CFU/mL - Blood cultures 01/24: No growth to date - Currently on Rocephin IV (started 01/25) 24 hour Tmax 101.8 F Leukocytosis improving 13.2 -> 11.3 Recommendations - UTI: Continue Rocephin for now. - Will follow up with final urine culture results and adjust antibiotics as appropriate. - Monitor WBC and fever trends - Supplemental nutrition as needed - CKD: Nephrology on case Case discussed with Tiarra Rowland
--- NOTE | 2023-01-26 15:10 | P.PN ---
Subjective Date of Service: 01/26/23 Chief Complaint: abdominal pain Patient has no new complaint. He denies any flank pain. He is tolerating his diet. Physical Examination - Vital Signs Temperature: 98.6 F Blood Pressure: 136/86 Pulse: 77 Respirations: 18 Pulse Ox (%): 96 - Studies Laboratory Data (last 24 hrs) 01/26/23 06:38: Sodium 142 D, Potassium 3.2 L, BUN 20 H, Creatinine 1.29, Glucose 108 H, Phosphorus 2.3 L 01/26/23 06:38: WBC 11.30 H, Hgb 10.7 L, Hct 31.9 L, Plt Count 227 Assessment And Plan - Plan Physical Exam General: Alert, Oriented x3, Cooperative Neck: Supple, no elevated JVD. Respiratory: Clear to auscultation bilaterally, Normal air movement Cardiovascular: Regular rate/rhythm, Normal S1 S2 Gastrointestinal: Normal bowel sounds, no tenderness. Integumentary: Other (PEG tube insertion side old dried drainage) Neurological: No focal motor deficit. Diagnosis Acute renal failure secondary bladder retention Bilateral hydronephrosis Acute urinary retention HX CVA HX falls Chronic back pain Fracture of the left L3 screw with some backing out of the hardware Remote L1 compression fracture. Abdominal pain Secondary to distended bladder. Relieved after bladder decompression with De [place] Santos catheter Acute renal failure hydronephrosis Acute retention of urine. Acute kidney injury unknown recent baseline. MERARI resolved with IV hydration Renal dose meds. Repeat renal ultrasound in the near future to reassess hydronephrosis. Acute cystitis Urine culture is growing gram-negative rods Continue IV Rocephin. Follow urine culture. HX CVA, Aphasia HX falls Fall preacutions, PT. Chronic back pain Fracture of the left L3 screw with some backing out of the hardware Remote L1 compression fracture. -Lumbar Spine 3 Views FINDINGS/IMPRESSION: Status post T11 through L3 fusion. Fracture of the left L3 screw with some backing out of the hardware at this level is noted. There is some lucency around the right L3 screw also. Remote L1 compression fracture. Dextroscoliotic curvature noted. Gastrostomy tube. Prn analgesics. DVT chronic anticoagultion Eliquis
[2023-01-26] MEDS: ALPRAZOLAM 0.25 MG TABLET PO PRN (19:57)
[2023-01-27] MEDS: NACHLORIDE 0.45% 1,000 ML IV SCH ×2 (04:48→16:13)
[2023-01-27 05:30] LABS: Albumin 2.5 g/dL (3.4-5.0); Phosphorus 3.1 mg/dL (2.5-4.9); Potassium 3.4 mEq/L (3.5-5.1)
[2023-01-27] MEDS ORDERED: POTASSIUM CL SA 10 MEQ TAB PO ONE (08:00)
[2023-01-27] MEDS: CEFTRIAXONE 1,000 MG in NA CHLORIDE 0.9% 50 ML IVPB SCH (08:26)
[2023-01-27] MEDS: BACLOFEN 10 MG TAB PO SCH ×2 (08:26→20:36)
[2023-01-27 09:09] VITALS: O2SAT 97
--- NOTE | 2023-01-27 09:11 | P.DS ---
Admission Date: 01/26/23 Discharge Date: 01/28/23 Disposition: TRANSFER TO INPATIENT REHAB Discharge Condition: FAIR Reason for Admission: abdominal pain Brief History of Present Illness: 72-year-old male with a past medical history of hypertension, CVA, reports chronic anticoagulation Eliquis, presents to the emergency room for abdominal pain. is at bedside is primary historian, reports had a De Los Santos catheter removed at nephrology office or Tuesday. Reports has been incontinent, she reported having to straight cath him yesterday at home. Today presents to the emergency room with suprapubic abdominal tenderness. In ER De Los Santos inserted 1500 cc urine obtained. Patient has a PEG tube is supposed to follow-up with surgery for removal. reports reports PEG tube is irritated at incision site. Old dried drainage on PEG tube. Patient had a CVA in November, has expressive aphasia, is very hard of hearing. reports patient tolerating p.o. intake on regular diet, swallow pills whole. reports had an associated fall due to low back pain. He has a history of spinal fusions and chronic back pain. Pain located to the lumbar region. No reported fever, nausea vomiting, diarrhea chest pain, dizziness. Patient was admitted for acute cystitis, acute on chronic renal failure, obstructive hydronephrosis, Dr. Blanco notified in ER. Hospital Course: Diagnosis Acute renal failure secondary bladder retention Bilateral hydronephrosis Acute urinary retention HX CVA HX falls Chronic back pain Fracture of the left L3 screw with some backing out of the hardware Remote L1 compression fracture. Patient admitted to the medical floor and the following medical problems addressed: Abdominal pain Secondary to distended bladder. Relieved after bladder decompression with De [place] catheter Acute renal failure hydronephrosis Acute retention of urine. Acute kidney injury unknown recent baseline. MERARI resolved with IV hydration Renal dose meds. Repeat renal ultrasound in the near future to reassess hydronephrosis. Acute cystitis Urine culture is grew Klebsiella oxytoca Patient treated with IV Rocephin and then transitioned to oral Levaquin based on sensitivity HX CVA, Aphasia HX falls/delirium Fall preacutions, PT. Per report, patient has been tolerating diet and currently has no dysphagia. He was scheduled to have his PEG tube removed prior to admission. General surgery consulted, patient seen by Dr. Garza and PEG tube removed. He was given Haldol as needed for agitated delirium. Patient accepted to inpatient rehab at [facility]. Chronic back pain Fracture of the left L3 screw with some backing out of the hardware Remote L1 compression fracture. -Lumbar Spine 3 Views FINDINGS/IMPRESSION: Status post T11 through L3 fusion. Fracture of the left L3 screw with some backing out of the hardware at this level is noted. There is some lucency around the right L3 screw also. Remote L1 compression fracture. Dextroscoliotic curvature noted. Prn analgesics. Follow-up as outpatient. DVT chronic anticoagultion Eliquis Vital Signs/Physical Exam: Temp Pulse Resp BP Pulse Ox 98.7 F 59 18 178/85 H 97 01/27/23 08:00 01/27/23 08:00 01/27/23 08:00 01/27/23 08:00 01/27/23 08:00 General: In no apparent distress HEENT: Mucous membr. moist/pink Neck: JVD not distended Respiratory: Clear to auscultation bilaterally, Normal air movement Cardiovascular: Regular rate/rhythm, Normal S1 S2 Gastrointestinal: Soft and benign, Non-distended Integumentary: No cyanosis Neurological: Other (No focal motor deficit, intermittent agitation) Laboratory Data at Discharge: WBC 11.30 thou/uL (4.3-10.9) H 01/26/23 06:38 Hgb 10.7 g/dL (13.6-17.9) L 01/26/23 06:38 Hct 31.9 % (39.6-49.0) L 01/26/23 06:38 Plt Count 227 thou/uL (152-406) 01/26/23 06:38 Sodium 139 mEq/L (136-145) 01/27/23 04:37 Potassium 3.4 mEq/L (3.5-5.1) L D 01/27/23 04:37 BUN 17 mg/dL (7-18) 01/27/23 04:37 Creatinine 1.10 mg/dL (0.70-1.30) 01/27/23 04:37 Glucose 88 mg/dL (74-106) 01/27/23 04:37 Phosphorus 3.1 mg/dL (2.5-4.9) 01/27/23 04:37 Magnesium 1.9 mg/dL (1.6-2.4) 01/25/23 03:58 Total Bilirubin 1.4 mg/dL (0.2-1.0) H 01/24/23 19:36 AST 21 U/L (15-37) 01/24/23 19:36 ALT 26 U/L (16-61) 01/24/23 19:36 Alkaline Phosphatase 271 U/L (45-117) H 01/24/23 19:36 Lipase 15 U/L (13-75) 01/24/23 19:36 Home Medications: Levetiracetam 100 mg SUBQ BID 05/27/15 cloNIDine HCL [Catapres*] 0.1 mg PO TID 05/27/15 Vitamin D [Drisdol*] 50,000 unit PO Q7D #4 cap 01/27/23 levoFLOXacin [Levaquin*] 750 mg PO DAILY #10 tab 01/27/23 Quetiapine [Seroquel*] 25 mg PO BID #0 tab 01/28/23 New Medications: Vitamin D [Drisdol*] 50,000 unit PO Q7D #4 cap levoFLOXacin [Levaquin*] 750 mg PO DAILY #10 tab Diet: AHA Activity: Fall precautions Followup: Joshua Morrison [ACTIVE - CAN ADMIT] - (Wthin 2 weeks) Boogie Blanco DO [Primary Care Provider] - 1 Week
--- NOTE | 2023-01-27 09:26 | P.PN ---
Date of Service: 01/27/23 Chief Complaint: abdominal pain Subjective: Improving. Patient seen and examined at bedside. Denies any new or worsening complaints. No acute events reported overnight. at bedside. Discussed plan of care. Physical Examination Temp Pulse Resp BP Pulse Ox 98.6 F 77 18 136/86 96 01/26/23 12:00 01/26/23 12:00 01/26/23 12:00 01/26/23 12:00 01/26/23 12:00 General: In no apparent distress, Oriented x2, Cooperative HEENT: Atraumatic, normocephalic. Hearing aid right ear. Neck: Supple, JVD not distended Respiratory: Clear to auscultation bilaterally, Normal air movement Cardiovascular: No edema, Regular rate/rhythm Gastrointestinal: Normal bowel sounds, Soft and benign, Non-distended, PEG tube. Musculoskeletal: No clubbing, No contractures Integumentary: No rashes, No tenderness/swelling Neurological: Hearing loss. Urinary: De [place] Santos catheter Studies Laboratory Data - Reviewed Microbiology Data - Reviewed Imagings Data: - CT abdomen pelvis 01/24: "FINDINGS: Lower chest: Small bilateral effusions. Coronary artery calcifications. Likely atelectasis . Liver: Cirrhotic liver morphology. Biliary: No biliary ductal dilatation. Stomach: Gastrostomy tube. Duodenum: No significant focal abnormality. Pancreas: No significant abnormality. Spleen: No significant abnormality. Adrenal: No suspicious lesions. Kidney/ureter: Bilateral hydronephrosis. Left renal cyst. Retroperitoneum: No retroperitoneal adenopathy. Vascular: No aneurysm. Bowel: No significant focal abnormality. Peritoneum: No ascites or free air. Small fat containing right inguinal hernia. Bladder: Distended bladder. Reproductive: Mild prostatomegaly. Bones: Remote L1 compression fracture. T11 through L3 fusion. The left L3 screw is cracked. The right L3 screw is retracted but probably similar to prior. . Other: n/a IMPRESSION: Distended bladder with bilateral hydronephrosis likely secondary to urinary retention. Suggest De [place] Santos catheter placement." - CT Head 01/24: "IMPRESSION: No acute intracranial abnormality." Medication List: Reviewed Assessment and Plan: Problem List Urinary Tract Infection Urinary Retention Bilateral Hydronephrosis BPH Hypertension CKD III Hx CVA (November 2022) PEG tube Anemia Severe PCM History of Nocardia Infection Urinary Tract Infection, Complicated - CT abdomen pelvis 01/24: Bilateral hydronephrosis. Left renal cyst. Distended bladder. Mild prostatomegaly - Urinary retention, PRN straight cath at home per . - Urine culture 01/24: Klebsiella oxytoca - Rocephin IV (01/25-) switched to Levaquin PO on 01/27 24 hour Tmax 101.8 F Leukocytosis improving 13.2 -> 11.3 Blood cultures 01/24: No growth to date - Patient has a history of Nocardia infection in 2016 for which he has been seeing an Infectious Disease specialist (Dr. Quiñonez?) and has been on Bactrim since 2015 up until November 2022. - PEG tube was placed in November of 2022 during hospitalization for CVA with resulting dysphagia. Per the patient's , his peg tube was supposed to be removed a few weeks ago as patient is able to swallow and has good PO intake. Recommendations - Urine culture growing Klebsiella oxytoca. Patient switched to Levaquin PO from Rocephin IV. Continue antibiotic therapy x 7 days (started 01/25). - Supplemental nutrition as needed - Monitor WBC and fever trends - Renally dose medications. CKD, nephrology following. Case discussed with Tiarra Rowland
[2023-01-27] MEDS: levoFLOXacin 750 MG TAB PO SCH (09:27)
--- NOTE | 2023-01-27 11:06 | P.PN ---
Date of Service: 01/27/23 Vital Signs Temp Pulse Resp BP Pulse Ox 98.7 F 59 18 178/85 H 97 01/27/23 08:00 01/27/23 08:00 01/27/23 08:00 01/27/23 08:00 01/27/23 08:00 Medications Acetaminophen (Acetaminophen 500 Mg Tab) 500 mg PO Q4HP PRN PRN Reason: Pain scale 2-4 (Mild) Last Admin: 01/25/23 20:26 Dose: 500 mg Alprazolam (Alprazolam 0.25 Mg Tablet) 0.25 mg PO BEDTIME PRN PRN PRN Reason: INSOMNIA Last Admin: 01/26/23 19:57 Dose: 0.25 mg Baclofen (Baclofen 10 Mg Tab) 10 mg PO BID [facility] Last Admin: 01/27/23 08:26 Dose: 10 mg Ergocalciferol (Drisdol (Vitamin D=Ergocalciferol) 15492 Unit Cap) 50,000 unit PO Q7D [facility] Last Admin: 01/26/23 10:13 Dose: 50,000 unit Sodium Chloride (Sodium Chloride 0.45%) 1,000 mls @ 100 mls/hr IV .Q10H [facility] Last Admin: 01/27/23 04:48 Dose: 1,000 mls Levofloxacin (Levofloxacin 750 Mg Tab) 750 mg PO DAILY [facility] Stop: 02/07/23 09:01 Last Admin: 01/27/23 09:27 Dose: 750 mg Ondansetron HCl (Ondansetron 4 Mg/2 Ml Vial) 4 mg IV Q6HP PRN PRN Reason: NAUSEA / VOMITING Sodium Chloride (Flush Normal Saline 10 Ml) 10 ml IV BID [facility] Last Admin: 01/27/23 08:26 Dose: 10 ml Tramadol HCl (Tramadol Hcl 50 Mg Tab) 50 mg PO Q6H PRN PRN Reason: Pain scale 5-7 (Moderate) Microbiology Results 01/24/23 20:36 Clean Catch Urine [place] Count - Final >100,000 CFU/ML. 01/24/23 20:36 Clean Catch Urine - Final Klebsiella Oxytoca 01/24/23 21:58 Blood - Blood Aerobic Blood Culture - Preliminary No growth in 24 hours. 01/24/23 21:58 Blood - Blood Anaerobic Blood Culture - Preliminary No growth in 24 hours. 01/24/23 21:42 Blood - Blood Aerobic Blood Culture - Preliminary No growth in 24 hours. 01/24/23 21:42 Blood - Blood Anaerobic Blood Culture - Preliminary No growth in 24 hours. Assessment/ Plan: Nephrology No chest pain No dyspnea Doing well No acute events overnight Case reviewed with the Vitals, medications, blood work and imaging reviewed in the chart General: In no apparent distress, Cooperative HEENT: Atraumatic Neck: Supple Respiratory: Normal air movement Cardiovascular: No edema, Regular rate/rhythm Gastrointestinal: Soft and benign, Non-distended Musculoskeletal: No clubbing, No contractures Integumentary: No rashes, No cyanosis Neurological: Normal speech. Poor hearing. Blood work reviewed in the chart. Imagings Data: EXAM DESCRIPTION: CTAbdomen Pelvis Wo Contrast - 01/24/2023 7:54 pm CLINICAL HISTORY: ABD PAIN COMPARISON: COCCYX dated 06/10/2015 TECHNIQUE: CT of the abdomen and pelvis was performed. All CT scans are performed using dose optimization technique as appropriate and may include automated exposure control or mA/KV adjustment according to patient size. FINDINGS: Lower chest: Small bilateral effusions. Coronary artery calcifications. Likely atelectasis . Liver: Cirrhotic liver morphology. Biliary: No biliary ductal dilatation. Stomach: Gastrostomy tube. Duodenum: No significant focal abnormality. Pancreas: No significant abnormality. Spleen: No significant abnormality. Adrenal: No suspicious lesions. Kidney/ureter: Bilateral hydronephrosis. Left renal cyst. Retroperitoneum: No retroperitoneal adenopathy. Vascular: No aneurysm. Bowel: No significant focal abnormality. Peritoneum: No ascites or free air. Small fat containing right inguinal hernia. Bladder: Distended bladder. Reproductive: Mild prostatomegaly. Bones: Remote L1 compression fracture. T11 through L3 fusion. The left L3 screw is cracked. The right L3 screw is retracted but probably similar to prior. . Other: n/a IMPRESSION: Distended bladder with bilateral hydronephrosis likely secondary to urinary retention. Suggest De [place] Santos catheter placement. EXAM DESCRIPTION: RAD - Lumbar Spine 3 Views - 01/24/2023 6:35 pm CLINICAL HISTORY: PAIN COMPARISON: COCCYX dated 06/10/2015 FINDINGS/IMPRESSION: Status post T11 through L3 fusion. Fracture of the left L3 screw with some backing out of the hardware at this level is noted. There is some lucency around the right L3 screw also. Remote L1 compression fracture. Dextroscoliotic curvature noted. Gastrostomy tube. EXAM DESCRIPTION: CT - Head Brain Wo Cont - 01/24/2023 7:54 pm CLINICAL HISTORY: fall, head injury COMPARISON: Head Brain Wo Cont dated 05/23/2016 TECHNIQUE: All CT scans are performed using dose optimization technique as appropriate and may include automated exposure control or mA/KV adjustment according to patient size. FINDINGS: No intracranial hemorrhage, hydrocephalus or extra-axial fluid collection.No areas of brain edema or evidence of midline shift. Similar postoperative changes at the right parietal lobe and right sided colpocephaly . The paranasal sinuses and mastoids are clear. The calvarium is intact. Remote right parietal craniotomy. Left-sided cochlear implant. IMPRESSION: No acute intracranial abnormality. Conclusions/Impression: Stage I MERARI in the setting of hypovolemia CKD III with Proteinuria -No NSAIDs -Continue IVF with 1/2NS Hypokalemia -Replete as ordered Hypophosphatemia -Replete prn -Maintain nutrition Hypoalbuminemia -Consider protein supplementation Anemia in chronic illness -Monitor H&H BPH with LUTS Urinary Retention -Continue De [place] Acute Klebsiella cystitis with hematuria -Continue abx -Hx of chronic nocardia infection from 2015 reviewed with ID Hospitalist note reviewed. Case reviewed with Dr. Parker Patient has been tolerating oral intake for several weeks; the PEG tube may be removed at this time
[2023-01-27] MEDS ORDERED: HALOPERIDOL LACT 5 MG/ML INJ IV ONE (12:00)
--- NOTE | 2023-01-27 16:00 | P.PN ---
Subjective Date of Service: 01/27/23 Chief Complaint: abdominal pain Patient has no new complaint. He is a bit agitated today. He is tolerating his diet. Physical Examination - Vital Signs Temperature: 98.6 F Blood Pressure: 156/74 Pulse: 64 Respirations: 18 Pulse Ox (%): 97 - Studies Microbiology Data (last 24 hrs): 01/24/23 20:36 Clean Catch Urine [place] Count - Final >100,000 CFU/ML. 01/24/23 20:36 Clean Catch Urine - Final Klebsiella Oxytoca Assessment And Plan - Plan Physical Exam General: Alert, Oriented x3, Cooperative Neck: Supple, no elevated JVD. Respiratory: Clear to auscultation bilaterally, Normal air movement Cardiovascular: Regular rate/rhythm, Normal S1 S2 Gastrointestinal: Normal bowel sounds, no tenderness. Integumentary: Other (PEG tube insertion side old dried drainage) Neurological: No focal motor deficit. Diagnosis Acute renal failure secondary bladder retention Bilateral hydronephrosis Acute urinary retention HX CVA HX falls Chronic back pain Fracture of the left L3 screw with some backing out of the hardware Remote L1 compression fracture. Abdominal pain Secondary to distended bladder. Relieved after bladder decompression with [place] catheter Acute renal failure hydronephrosis Acute retention of urine. Acute kidney injury unknown recent baseline. MERARI resolved with IV hydration Renal dose meds. Repeat renal ultrasound in the near future to reassess hydronephrosis. Acute cystitis Urine culture is growing Klebsiella oxytoca Antibiotics changed to oral Levaquin based on sensitivity HX CVA, Aphasia HX falls/delirium Fall preacutions, PT. Patient is requesting to go to inpatient rehab. Per report, patient has been tolerating diet and currently has no dysphagia. He was scheduled to have his PEG tube removed prior to admission. We will consult Dr. Garza for PEG tube removal. Haldol as needed for agitated delirium. Chronic back pain Fracture of the left L3 screw with some backing out of the hardware Remote L1 compression fracture. -Lumbar Spine 3 Views FINDINGS/IMPRESSION: Status post T11 through L3 fusion. Fracture of the left L3 screw with some backing out of the hardware at this level is noted. There is some lucency around the right L3 screw also. Remote L1 compression fracture. Dextroscoliotic curvature noted. Prn analgesics. DVT chronic anticoagultion Eliquis
[2023-01-27] MEDS: TRAMADOL HCL 50 MG TAB PO PRN (17:26)
[2023-01-28] MEDS: ALPRAZOLAM 0.25 MG TABLET PO PRN (01:26)
[2023-01-28] MEDS: NACHLORIDE 0.45% 1,000 ML IV SCH ×2 (02:00→09:51)
[2023-01-28 03:03] LABS: Absolute Lymphocytes (CBC) 0.8 K/uL (0.7-4.9); Lymphocytes % 10.5 % (15.3-44.8); MCV 96.2 fL (80-100); MPV 8.4 fL (7.6-11.3); Platelets 246 thou/uL (152-406); RBC Red Blood Cell Count 3.11 M/uL (4.33-5.43)
[2023-01-28 03:15] LABS: Albumin 2.5 g/dL (3.4-5.0); Phosphorus 2.9 mg/dL (2.5-4.9); Potassium 3.5 mEq/L (3.5-5.1)
[2023-01-28] MEDS: TRAMADOL HCL 50 MG TAB PO PRN (04:15)
[2023-01-28] MEDS ORDERED: HALOPERIDOL LACT 5 MG/ML INJ IV ONE ×2 (04:30→14:20)
--- NOTE | 2023-01-28 08:58 | P.PN ---
Date of Service: 01/28/23 Chief Complaint: abdominal pain Subjective: Improving. No new changes. No acute events reported overnight. Denies any new or worsening complaints. Physical Examination Temp Pulse Resp BP Pulse Ox 97.8 F 76 18 163/75 H 96 01/28/23 08:00 01/28/23 08:00 01/28/23 08:00 01/28/23 08:00 01/28/23 08:00 General: In no apparent distress, Oriented x2, Cooperative HEENT: Atraumatic, normocephalic. Hearing aid right ear. Neck: Supple, JVD not distended Respiratory: Clear to auscultation bilaterally, Normal air movement Cardiovascular: No edema, Regular rate/rhythm Gastrointestinal: Normal bowel sounds, Soft and benign, Non-distended, PEG tube. Musculoskeletal: No clubbing, No contractures Integumentary: No rashes, No tenderness/swelling Neurological: Hearing loss. Urinary: [place] catheter Studies Laboratory Data - Reviewed Microbiology Data - Reviewed Imagings Data: -- CT abdomen pelvis 01/24: "FINDINGS: Lower chest: Small bilateral effusions. Coronary artery calcifications. Likely atelectasis . Liver: Cirrhotic liver morphology. Biliary: No biliary ductal dilatation. Stomach: Gastrostomy tube. Duodenum: No significant focal abnormality. Pancreas: No significant abnormality. Spleen: No significant abnormality. Adrenal: No suspicious lesions. Kidney/ureter: Bilateral hydronephrosis. Left renal cyst. Retroperitoneum: No retroperitoneal adenopathy. Vascular: No aneurysm. Bowel: No significant focal abnormality. Peritoneum: No ascites or free air. Small fat containing right inguinal hernia. Bladder: Distended bladder. Reproductive: Mild prostatomegaly. Bones: Remote L1 compression fracture. T11 through L3 fusion. The left L3 screw is cracked. The right L3 screw is retracted but probably similar to prior. . Other: n/a IMPRESSION: Distended bladder with bilateral hydronephrosis likely secondary to urinary retention. Suggest De [place] Santos catheter placement." -- CT Head 01/24: "IMPRESSION: No acute intracranial abnormality." Medication List: Reviewed Assessment and Plan: Problem List Urinary Tract Infection Urinary Retention Bilateral Hydronephrosis BPH Hypertension CKD III Hx CVA (November 2022) PEG tube Anemia Severe PCM History of Nocardia Infection Urinary Tract Infection, Complicated - CT abdomen pelvis 01/24: Bilateral hydronephrosis. Left renal cyst. Distended bladder. Mild prostatomegaly - Urinary retention, PRN straight cath at home per . - Urine culture 01/24: Klebsiella oxytoca - Rocephin IV (01/25-) switched to Levaquin PO on 01/27 Afebrile >48 hours. Leukocytosis improved 13.2 -> 11.3 -> 7.9 Blood cultures 01/24: No growth to date - Patient has a history of Nocardia infection in 2016 for which he has been seeing an Infectious Disease specialist (Dr. Quiñonez?) and has been on Bactrim since 2015 up until November 2022. - PEG tube was placed in November of 2022 during hospitalization for CVA with resulting dysphagia. Per the patient's , his peg tube was supposed to be removed a few weeks ago as patient is able to swallow and has good PO intake. Recommendations - UTI: On Levaquin PO. Continue antibiotic therapy x 7 days (started 01/25). - Supplemental nutrition as needed - Monitor WBC and fever trends - Renally dose medications. CKD, nephrology following. Case discussed with Tiarra Rowland
[2023-01-28] MEDS: BACLOFEN 10 MG TAB PO SCH (09:51)
[2023-01-28] MEDS: levoFLOXacin 750 MG TAB PO SCH (09:51)
[2023-01-28] MEDS ORDERED: POTASSIUM CL SA 10 MEQ TAB PO ONE (10:35)
[2023-01-28] MEDS ORDERED: QUETIAPINE 25 MG TAB PO ONE (14:00)
--- NOTE | 2023-01-28 14:15 | CON ---
Date of Consultation: 01/28/2023 Brief History Of Present Illness: Patient is a 72-year-old male with a history of hypertension, CVA, who is accompanied by his , who is at the bedside during my examination and conversation and int octavio, who presents with a history of a CVA requiring a PEG tube several months ago. The PEG tube w as placed in early November by her description, but they have not used it for any sort of feeding access o r usage of any kind for the past over month. He has been eating, tolerating diet, maintaining his nu tritional goals and is not having any swallowing difficulty. As such, patient's has requested r emoval of the PEG tube. Patient is essentially completely confused and unable to give me any informa tion. As such, information is obtained predominantly from the chart and from the patient's who is at the bedside as described. Past Medical History: Hypertension, CVA, expressive aphasia. He is on chronic anticoagulation. Past Surgical History: Includes PEG tube placement approximately 3 months ago, skin grafts in bilate ral lower extremities, reconstruction of arm and hands, cervical fusion. Social History: No history of smoking, alcohol, recreational drug use. Review of Systems: 10-point review of systems is unable to obtain. Allergies: NO KNOWN DRUG ALLERGIES. Home Medications: Include baclofen, levetiracetam, and clonidine. Physical Examination: General: At the time of my examination, he is awake and alert, but he is completely disoriented. HEENT: Normocephalic. His sclerae are anicteric. Mucous membranes are moist. Oropharynx clear. Neck: Supple without JVD. Chest: Expansion and excursion. Cardiovascular: Regular rate and rhythm. Pulmonary: Clear to auscultation bilaterally. Abdomen: Soft. There is a PEG tube in place. It appears to have a good track with some crusting ti ssue around it. There are no sutures holding in place. Skin: Warm and dry otherwise. Laboratory Data: Revealed a white blood count of 7.9, hemoglobin 10, hematocrit 30, platelet count i s 246. Chemistry showed a sodium 141, potassium 3.5, chloride 108, carbon dioxide 26, BUN 14, creati nine 1.0, glucose 107. He had a head CT on 01/24 officially read as no acute intracranial abnormalit y. He additionally had an abdomen and pelvis CT on 01/24, also officially read as distended bladder with bilateral hydronephrosis likely secondary to urinary retention suggest [place] catheter placement. Stomach had a gastrostomy tube placement. Assessment/plan: This is a 72-year-old male who has a PEG tube in place for which he has no use at t his time. As such, at the request of the patient's family and as the patient has not used this in ov er a month and has been doing well without usage and need of the PEG tube. I have discussed risks, b enefits, and alternatives of removal of PEG tube at the bedside, including but not limited to bleedin g, infection, damage to surrounding tissue, need of further operation procedures. Patient's family a greed to proceed as indicated. PEG tube will be removed at bedside immediately. KATHY/DENISE Voice ID: [id number] Report ID: [id number]
[2023-01-28] MEDS ORDERED: QUETIAPINE 25 MG TAB PO SCH (15:23)
[2023-01-28 16:57] VITALS: BP 162/88; TEMP 97.4
[2023-01-29] MEDS ORDERED: POTASSIUM CL SA 10 MEQ TAB PO SCH (09:00)
[2023-01-29] MEDS ORDERED: POTASSIUM CL SA 10 MEQ TAB PO ONE (10:19)
== END 2023-01-28 17:47 | DRG 699 ==
LOC: ER 17:41 → ERHOLD 23:10 → 2ND 01-25 17:02 → OBSVTOIN 01-26 09:07
PROVIDERS: ADMIT Internal Medicine; ATTEND Internal Medicine
DX: T83.511A Infection and inflammatory reaction due to indwelling urethral catheter, initial encounter (principal); N13.6 Pyonephrosis; R47.01 Aphasia; N17.9 Acute kidney failure, unspecified; I12.9 Hypertensive chronic kidney disease with stage 1 through stage 4 chronic kidney disease, or unspecified chronic kidney disease; N18.30 Chronic kidney disease, stage 3 unspecified; D63.1 Anemia in chronic kidney disease; D63.8 Anemia in other chronic diseases classified elsewhere; G89.29 Other chronic pain; M54.9 Dorsalgia, unspecified; N28.1 Cyst of kidney, acquired; E87.6 Hypokalemia; E83.39 Other disorders of phosphorus metabolism; E88.09 Other disorders of plasma-protein metabolism, not elsewhere classified; N40.1 Benign prostatic hyperplasia with lower urinary tract symptoms; M48.56XD Collapsed vertebra, not elsewhere classified, lumbar region, subsequent encounter for fracture with routine healing; B96.1 Klebsiella pneumoniae [K. pneumoniae] as the cause of diseases classified elsewhere; R31.9 Hematuria, unspecified; R33.8 Other retention of urine; Z91.81 History of falling; Z86.73 Personal history of transient ischemic attack (TIA), and cerebral infarction without residual deficits; Z79.01 Long term (current) use of anticoagulants; Z87.891 Personal history of nicotine dependence; Z79.899 Other long term (current) drug therapy; Y84.6 Urinary catheterization as the cause of abnormal reaction of the patient, or of later complication, without mention of misadventure at the time of the procedure
CPT/HCPCS: 36415; 51702; 70450; 72100; 74176; 80048; 80053; 80069; 81001; 82565; 83605; 83690; 83735; 84132; 85025; 87040; 87077; 87086; 87088; 87186; 96365; 96366; 97116; 97162; 97165; 97530; 99285; J0696; J1630; J7030

== ENCOUNTER 2023-03-08 14:44 | Inpatient (IN) | payer OTHER ==
[2023-03-08 15:27] LABS: Absolute Lymphocytes (CBC) 0.3 K/uL (0.7-4.9); Hematocrit 32.3 % (39.6-49.0); Lymphocytes % 1.8 % (15.3-44.8); MPV 7.4 fL (7.6-11.3); Platelets 189 thou/uL (152-406); RBC Red Blood Cell Count 3.37 M/uL (4.33-5.43)
[2023-03-08 15:33] LABS: Protime INR 1.82
[2023-03-08 15:45] LABS: Albumin 2.7 g/dL (3.4-5.0); Bilirubin Total 0.9 mg/dL (0.2-1.0); Potassium 3.3 mEq/L (3.5-5.1); Troponin High Sensitivity 37.2 pg/mL (<58.9)
--- NOTE | 2023-03-08 16:07 | RAD REPORT ---
EXAM DESCRIPTION: [place] Single View03/08/2023 3:31 pm CLINICAL HISTORY: Tachycardia COMPARISON: 2014 FINDINGS: Mild bilateral pulmonary opacities Heart is normal size IMPRESSION: Mild bilateral pulmonary opacities may indicate interstitial pulmonary edema, pneumonia or pneumonitis
[2023-03-08 17:35] LABS: Urine Bacteria 20-50 /HPF (<20); Urine Bilirubin NEGATIVE (Negative); Urine Blood 1+ (Negative); Urine Clarity Extremely Turbid (Clear); Urine Color Yellow (Yellow); Urine Glucose NEGATIVE (Negative); Urine Mucus Slight /HPF (None Seen); Urine Protein 1+ (Negative); Urine Urobilinogen Normal (Normal)
[2023-03-08 17:47] LABS: SARS-CoV-2 Antigen Rapid Res Negative (Negative)
--- NOTE | 2023-03-08 17:50 | EDPHYS ---
Physician Documentation [facility] Name: Lamberto Simpson Age: 72 yrs Sex: Male : 1950 Arrival Date: 03/08/2023 Time: 14:44 Bed 13 Private MD: ED Physician Reynold Cabrera HPI: 03/08 15:30 This 72 yrs old Male presents to ER via EMS with complaints of elevated heart rate per snw OT today. 15:30 Pt with CVA in November. In and out of the hospital since. most often for UTI. Pt has zhang snw that had not been draining recently, now draining but would like to r/o infection. Severity of symptoms: At their worst the symptoms were very mild. The patient has experienced similar episodes in the past. as noted. Historical: - Allergies: 14:54 No Known Allergies; ko1 - PMHx: 14:54 CVA; Hypertension; ko1 - Immunization history:: Adult Immunizations unknown. - Social history:: Smoking status: Patient/guardian denies using tobacco. ROS: 15:32 Constitutional: Negative for fever, chills, and weight loss, Eyes: Negative for injury, snw pain, redness, and discharge, ENT: Negative for injury, pain, and discharge, Neck: Negative for injury, pain, and swelling, Respiratory: Negative for shortness of breath, cough, wheezing, and pleuritic chest pain, Abdomen/GI: Negative for abdominal pain, nausea, vomiting, diarrhea, and constipation, Back: Negative for injury and pain, : Negative for injury, bleeding, discharge, and swelling, zhang intact MS/Extremity: Negative for injury and deformity, Skin: Negative for injury, rash, and discoloration, Neuro: Negative for headache, weakness, numbness, tingling, and seizure, Psych: Negative for depression, anxiety, suicide ideation, homicidal ideation, and hallucinations. 15:32 Cardiovascular: Positive for HR noted to be higher than normal per OT. Exam: 15:29 Head/Face: Normocephalic, atraumatic. Eyes: Pupils equal round and reactive to light, snw extra-ocular motions intact. Lids and lashes normal. Conjunctiva and sclera are non-icteric and not injected. Cornea within normal limits. Periorbital areas with no swelling, redness, or edema. ENT: Nares patent. No nasal discharge, no septal abnormalities noted. Tympanic membranes are normal and external auditory canals are clear. Oropharynx with no redness, swelling, or masses, exudates, or evidence of obstruction, uvula midline. Mucous membranes moist. Neck: Trachea midline, no thyromegaly or masses palpated, and no cervical lymphadenopathy. Supple, full range of motion without nuchal rigidity, or vertebral point tenderness. No Meningismus. Chest/axilla: Normal chest wall appearance and motion. Nontender with no deformity. No lesions are appreciated. 15:29 Respiratory: Lungs have equal breath sounds bilaterally, clear to auscultation and percussion. No rales, rhonchi or wheezes noted. No increased work of breathing, no retractions or nasal flaring. Abdomen/GI: Soft, non-tender, with normal bowel sounds. No distension or tympany. No guarding or rebound. No evidence of tenderness throughout. Back: No spinal tenderness. No costovertebral tenderness. Full range of motion. Skin: Warm, dry with normal turgor. Normal color with no rashes, no lesions, and no evidence of cellulitis. MS/ Extremity: Pulses equal, no cyanosis. Neurovascular intact. Full, normal range of motion. Neuro: Awake and alert, GCS 15, oriented to person, place, time, and situation. Cranial nerves II-XII grossly intact. Motor strength 5/5 in all extremities. Sensory grossly intact. Cerebellar exam normal. Normal gait. Psych: Awake, alert, with orientation to person, place and time. Behavior, mood, and affect are within normal limits. 15:29 Constitutional: The patient appears alert, awake. 15:29 Cardiovascular: Rate: normal, Rhythm: regular, Pulses: no pulse deficits are appreciated, Heart sounds: S3. Vital Signs: 14:51 BP 101 / 59; Pulse 98; Resp 16; Temp 99.6(O); Pulse Ox 96% on R/A; ko1 19:00 BP 149 / 73; Pulse 102; Pulse Ox 97% on R/A; kl 20:15 BP 139 / 72; Pulse 101; Resp 20; Pulse Ox 96% on R/A; kl 20:18 Temp 98.4(O); kl MDM: 15:01 Patient medically screened. snw 16:40 Management of patient was discussed with the following: Dr. Blanco in to assess. snw 17:44 Differential Diagnosis altered mental status, sepsis, UTI. Data reviewed: vital signs, snw nurses notes, lab test result(s), radiologic studies. Management of patient was discussed with the following: Hospitalist: Pamela Parra will reply at 1800. Historians other than the Patient: Spouse/Significant Other: . Counseling: I had a detailed discussion with the patient and/or guardian regarding the historical points, exam findings, and any diagnostic results supporting the discharge/admit diagnosis, lab results, radiology results, the need for further work-up and treatment in the hospital. Response to treatment: the patient's symptoms have mildly improved after treatment. 03/08 15:01 Order name: Blood Culture Adult (2) snw 03/08 15:01 Order name: CBC with Diff; Complete Time: 18:01 snw 03/08 15:01 Order name: CMP; Complete Time: 16:11 snw 03/08 15:01 Order name: Lactate w/ 2H reflex if indic.; Complete Time: 16:11 snw 03/08 15:01 Order name: Protime (+inr); Complete Time: 15:33 snw 03/08 15:01 Order name: Ptt, Activated; Complete Time: 15:33 snw 03/08 15:01 Order name: Urinalysis w/ reflexes; Complete Time: 17:43 snw 03/08 15:01 Order name: Troponin High Sensitivity; Complete Time: 16:11 snw 03/08 16:32 Order name: SARS RAPID; Complete Time: 17:50 snw 03/08 17:43 Order name: Urine Culture EDMS 03/08 17:58 Order name: CBC Smear Scan; Complete Time: 18:01 EDMS 03/08 19:17 Order name: Urinalysis w/ reflexes EDMS 03/08 19:17 Order name: Basic Metabolic Panel EDMS 03/08 19:17 Order name: Basic Metabolic Panel EDMS 03/08 19:17 Order name: Basic Metabolic Panel EDMS 03/08 19:17 Order name: Basic Metabolic Panel EDMS 03/08 19:17 Order name: CBC with Automated Diff EDMS 03/08 19:17 Order name: CBC with Automated Diff EDMS 03/08 19:17 Order name: CBC with Automated Diff EDMS 03/08 19:17 Order name: CBC with Automated Diff EDKS 03/08 19:17 Order name: Magnesium EDKS 03/08 19:17 Order name: Magnesium EDKS 03/08 19:17 Order name: Magnesium EDKS 03/08 19:17 Order name: Magnesium EDKS 03/08 15:01 Order name: Chest Single View XRAY; Complete Time: 16:11 snw 03/08 18:33 Order name: CT Chest Abdomen Pelvis W/O Contrast; Complete Time: 08:27 snw 03/08 15:01 Order name: EKG; Complete Time: 15:02 snw 03/08 19:13 Order name: CONS Physician Consult EDKS 03/08 19:17 Order name: CONS Physician Consult EDKS 03/08 19:17 Order name: Heart Healthy EDKS 03/08 15:01 Order name: Accucheck; Complete Time: 19:08 snw 03/08 15:01 Order name: Cardiac monitoring; Complete Time: 15:03 snw 03/08 15:01 Order name: EKG - Nurse/Tech; Complete Time: 15:19 snw 03/08 15:01 Order name: IV Saline Lock - Large Bore; Complete Time: 15:03 snw 03/08 15:01 Order name: Labs collected and sent; Complete Time: 15:19 snw 03/08 15:01 Order name: O2 Per Protocol; Complete Time: 15:03 snw 03/08 15:01 Order name: O2 Sat Monitoring; Complete Time: 15:03 snw 03/08 15:01 Order name: Vital Signs; Complete Time: 15:03 snw EC:29 Rate is 91 beats/min. Rhythm is regular. QRS [place] is Normal. Q waves are Present in snw leads II, III, aVF. Clinical impression: NSR w/ Non-specific ST/T Changes. Administered Medications: 17:47 Drug: Potassium PO Effervescent Tablet 50 mEq Route: PO; ko1 18:50 Drug: Rocephin IV 1 grams Route: IV; Rate: calculated rate; Site: right forearm; ko1 Disposition: 03/09 10:01 Co-signature as Attending Physician, Reynold Cabrera MD I reviewed the patient's care rn provided by the Advanced Practice Provider and agree with the diagnosis and treatment plan. Disposition Summary: 03/08/23 17:50 Hospitalization Ordered Hospitalization Status: Inpatient Admission snw Provider: Mian Parker snw Location: Telemetry/MedSurg (Inpatient) snw Condition: Stable snw Problem: new snw Symptoms: are unchanged snw Bed/Room Type: Standard snw Room Assignment: 230(03/08/23 19:42) cg Diagnosis - UTI/ Urinary tract infection, site not specified snw - Altered mental status, unspecified snw - Hypokalemia snw Forms: - Medication Reconciliation Form snw - SBAR form snw - Leadership Thank You Letter snw Signatures: Dispatcher [employer] EDMS Zeny Danielson, VICE PRESIDENT UNDERWRITING-C VICE PRESIDENT UNDERWRITING-Csnw Reynold Cabrera MD MD rn Garcia, Cindy, RN RN Petra Sandhu RN RN ko1 Corrections: (The following items were deleted from the chart) 03/08 19:42 17:50 snw cg
--- NOTE | 2023-03-08 17:50 | ER ---
Nurse's Notes [facility] Name: Lamberto Simpson Age: 72 yrs Sex: Male : 1950 Arrival Date: 03/08/2023 Time: 14:44 Bed 13 Private MD: Diagnosis: UTI/ Urinary tract infection, site not specified;Altered mental status, unspecified;Hypokalemia Presentation: 03/08 14:51 Chief complaint: EMS states: they were called to the residence for high heart rate and ko1 slight confusion. Temp was 99.6. Coronavirus screen: At this time, the client does not indicate any symptoms associated with coronavirus-19. Ebola Screen: No symptoms or risks identified at this time. Initial Sepsis Screen: Does the patient meet any 2 criteria? Does the patient have a suspected source of infection? No. Patient's initial sepsis screen is negative. Risk Assessment: Do you want to hurt yourself or someone else? Patient reports no desire to harm self or others. Onset of symptoms was March 08, 2023. Care prior to arrival: IV initiated. 20 GA, in the right forearm. 14:51 Method Of Arrival: EMS: [facility] ko1 14:51 Acuity: GRIFFIN 3 ko1 Triage Assessment: 14:54 General: Appears in no apparent distress. comfortable, unkempt, Behavior is calm, ko1 cooperative, appropriate for age. Pain: Denies pain. EENT: VERY hard of hearing. Historical: - Allergies: 14:54 No Known Allergies; ko1 - PMHx: 14:54 CVA; Hypertension; ko1 - Immunization history:: Adult Immunizations unknown. - Social history:: Smoking status: Patient/guardian denies using tobacco. Screenin:55 [facility] ED Fall Risk Assessment (Adult) History of falling in the last 3 months, ko1 including since admission No falls in past 3 months (0 pts) Confusion or Disorientation No (0 pts) Intoxicated or Sedated No (0 pts) Impaired Gait Yes (1 pt) Mobility Assist Device Used Yes (1 pt) Altered Elimination Yes (1 pt) Score/Fall Risk Level 3 or more points = High Risk Oriented to surroundings, Maintained a safe environment, Educated pt \T\ family on fall prevention, incl call for assistance when getting out of bed, Assessed \T\ reinforced patient's understanding of fall precautions, Provided non-skid footwear, Hourly rounding (assess needs \T\ fall precautionary measures) done, Used ambulatory aids as needed (educated on \T\ assisted with), Used gait belt as appropriate Implemented a Fall Risk Plan of Care, Apply high fall risk patient identification: yellow non skid footwear/ fall signage, Utilized family, sitter, or virtual iron and steel work supervisor as indicated. Abuse screen: Denies threats or abuse. Denies injuries from another. Nutritional screening: No deficits noted. Tuberculosis screening: No symptoms or risk factors identified. Assessment: 14:55 Neuro: Reports previous stroke that affected the left side, speech, and swallowing. ko1 Cardiovascular: No deficits noted. Respiratory: No deficits noted. GI: No deficits noted. : De Los Santos in place to gravity drainage. EENT: VERY hard of hearing. Derm: No deficits noted. Musculoskeletal: Parent/caregiver report the patient having left side flaccid from previous CVA. Vital Signs: 14:51 BP 101 / 59; Pulse 98; Resp 16; Temp 99.6(O); Pulse Ox 96% on R/A; ko1 19:00 BP 149 / 73; Pulse 102; Pulse Ox 97% on R/A; kl 20:15 BP 139 / 72; Pulse 101; Resp 20; Pulse Ox 96% on R/A; kl 20:18 Temp 98.4(O); kl ED Course: 14:50 Patient arrived in ED. ko1 14:[address] RN is Primary Nurse. ko1 14:51 Zeny Danielson FNP-C is PHCP. snw 14:51 Reynold Cabrera MD is Attending Physician. snw 14:54 Triage completed. ko1 14:54 Arm band placed on right wrist. Patient placed in an exam room, on a stretcher, on ko1 playground monitor, on pulse oximetry, Patient notified of wait time. 14:55 Patient has correct armband on for positive identification. Bed in low position. Call ko1 light in reach. Side rails up X2. Provided Education on: na. Client placed on continuous cardiac and pulse oximetry monitoring. NIBP monitoring applied. vehicle monitor technician on. Door closed. Noise minimized. Lights dimmed. Warm blanket given. 14:55 Maintain EMS IV. Dressing intact. Good blood return noted. Site clean \T\ dry. Gauge \T\ ko 1 site: 20g R FA. 15:19 Troponin High Sensitivity Sent. ko1 15:19 CBC with Diff Sent. ko1 15:19 CMP Sent. ko1 15:19 Lactate w/ 2H reflex if indic. Sent. ko1 15:19 Protime (+inr) Sent. ko1 15:19 Ptt, Activated Sent. ko1 15:33 Chest Single View XRAY In Process Unspecified. EDMS 15:40 First set of blood cultures drawn by mo. tm3 16:15 Second set of blood cultures drawn. tm3 17:08 SARS RAPID Sent. ko1 17:08 Urinalysis w/ reflexes Sent. ko1 17:08 Blood Culture Adult (2) Sent. ko1 17:43 Urine Culture Sent. ko1 17:49 Mian Parker is Hospitalizing Provider. snw 19:08 Primary Nurse role handed off by Petra Lane, RN bp 19:08 Valdo Draper, RN is Primary Nurse. bp 19:17 CT Chest Abdomen Pelvis W/O Contrast In Process Unspecified. EDMS Administered Medications: 17:47 Drug: Potassium PO Effervescent Tablet 50 mEq Route: PO; ko1 18:50 Drug: Rocephin IV 1 grams Route: IV; Rate: calculated rate; Site: right forearm; ko1 Outcome: 17:50 Decision to Hospitalize by Provider. snw 20:21 Admitted to Med/surg accompanied by tech, via stretcher, room 230, Report called to leobardo Watson 20:21 Condition: stable 20:21 Instructed on pt does not understand 20:25 Patient left the ED. leobardo Signatures: Dispatcher [employer] EDLivia Shields, RN Nghia Denny tm3 Zeny Danielson, ASSOCIATE QUALITY ENGINEER-C ASSOCIATE QUALITY ENGINEER-CsnValdo Main, RN MADDI bp Petra Lane, MADDI RN ko1
[2023-03-08] MEDS ORDERED: POTASSIUM 25 MEQ EFFERV TAB ONE (17:56)
[2023-03-08 17:58] LABS: Blood Morphology Comment NOT SEEN (NOT SEEN); Platelet Estimate ADEQ; White Blood Cell Scan OK (OK)
[2023-03-08] MEDS ORDERED: CEFTRIAXONE 1000 MG/VIAL ONE (19:01)
--- NOTE | 2023-03-08 19:09 | P.HP ---
Certification for Inpatient Patient admitted to: Inpatient With expected LOS: <2 Midnights Patient will require the following post-hospital care: Home Health Services Practitioner: I am a practitioner with admitting privileges, knowledge of patient current condition, hospital course, and medical plan of care. Services: Services provided to patient in accordance with Admission requirements found in Title 42 Section 412.3 of the Code of Federal Regulations Patient History Date of Service: 03/08/23 Reason for admission: Elevated heart rate History of Present Illness: 72-year-old male with a past medical history CVA left-sided weakness, hypertension, chronic indwelling De [place] catheter presents to the emergency room for elevated heart rate. is primary historian reports patient does out patient PT and OT, OT was concerned about patient's elevated heart rate patient was referred to the ER via EMS for evaluation. reports yesterday patient had a kink in his De [place] with no urinary output for a day or 2, home health nurse replace De Los Santos, reported De [place] was obstructed due to sediment. She reports De [place] Santos has been draining more today. Associated symptoms were low-grade fever today, elevated heart rate, fatigue, weakness, poor appetite today. No reported chest pain, abdominal pain, edema, nausea vomiting diarrhea, confusion. Plan to admit for urosepsis, acute cystitis, acute kidney injury. Laboratory evaluation leukocytosis WBCs 15.70, early left shift 87.3, normocytic anemia at 10.9, 32.3, hypokalemia 3.2, acute on chronic kidney injury BUN 29 creatinine 1.52, estimated GFR 42, lactic acid normal 1.8, UA leukoesterase greater than 500 hematuria +1 blood bacteria 20-50, SARS-CoV-2 negative chest x- ray IMPRESSION: Mild bilateral pulmonary opacities may indicate interstitial pulmonary edema, pneumonia or pneumonitis, CT of the chest abdomen pelvis without contrast ordered, EKG rate 91 beats/min. Rhythm is regular. QRS [place] is Normal. Q waves are Present in leads II, III, aVF. Clinical impression: NSR w/ Non-specific ST/T Changes, Allergies No Known Drug Allergies Allergy (Verified 01/25/23 18:30) Unknown Home Medications: Levetiracetam 100 mg SUBQ BID 05/27/15 cloNIDine HCL [Catapres*] 0.1 mg PO TID 05/27/15 Vitamin D [Drisdol*] 50,000 unit PO Q7D #4 cap 01/27/23 levoFLOXacin [Levaquin*] 750 mg PO DAILY #10 tab 01/27/23 Quetiapine [Seroquel*] 25 mg PO BID #0 tab 01/28/23 - Past Medical/Surgical History Diabetic: No -: HYPERTENSION -: HX CVA -: expressive aphaisa -: NIKOLSKI -: Chronic anticoagulation -: CKD (Dr. Blanco) -: SKIN GRAFTS FROM BLE -: RECONSTRUCTION OF ARMS/HANDS -: CERVICAL FUSION -: Peg placement - Social History Alcohol use: No CD- Drugs: Yes Caffeine use: No Review of Systems 10-point ROS is otherwise unremarkable Physical Examination - Physical Exam General: Alert, In no apparent distress, Oriented x3 HEENT: Atraumatic, Normocephalic, PERRLA Neck: Supple, 2+ carotid pulse no bruit Respiratory: Normal air movement, Crackles/rales Cardiovascular: No edema, Normal pulses, Regular rate/rhythm, Normal S1 S2 Capillary refill: <2 Seconds Gastrointestinal: Normal bowel sounds, Soft and benign Musculoskeletal: No clubbing, No swelling, Other (Left upper extremity, left lower extremity weakness secondary to prior CVA) Integumentary: No rashes, No breakdown Neurological: Normal speech, Normal strength at 5/5 x4 extr, Cranial nerves 3-12 intact, Other (Hard of hearing) Urinary: De [place] catheter - Studies Laboratory Data (last 24 hrs) 03/08/23 03/08/23 03/08/23 15:15 15:15 15:15 WBC 15.70 H Hgb 10.9 L Hct 32.3 L Plt Count 189 PT 20.0 H INR 1.82 APTT 40.3 H Sodium 139 Potassium 3.3 L BUN 29 H Creatinine 1.52 H Glucose 110 H Total Bilirubin 0.9 AST 14 L ALT 14 L Alkaline Phosphatase 111 Assessment and Plan - Plan Assessment plan urosepsis-chronic indwelling [place] catheter acute cystitis acute kidney injury Mild bilateral interstitial lung opacities within predominantly the lower lobes. Hypokalemia Normocytic anemia History of a CVA Hypertension Left renal cyst Enlarged prostate Right inguinal hernia contains fat Fractured L3 left pedicular screw and malaligned L3 right pedicular screw with an old L1 compression fracture. There is little bone within the L1 vertebra. It is without significant change from January 2023 DVT prophylaxis Assessment plan urosepsis acute cystitis acute kidney injury Nephrology consult Dr. Blanco, chronic indwelling [place] catheter Infectious disease consult urosepsis Laboratory evaluation leukocytosis WBCs 15.70, early left shift 87.3, lactic acid normal 1.8, UA leukoesterase greater than 500 hematuria +1 blood bacteria 20-50, acute on chronic kidney injury BUN 29 creatinine 1.52, estimated GFR 42, IV Levaquin, per last recommendations urine cultures, IV fluids trend kidney function Urine cultures, blood cultures CT of the chest abdomen pelvis without contrast ordered Mild bilateral pulmonary opacities may indicate interstitial pulmonary edema, pneumonia or pneumonitis, O2 2 L keep sats greater than 92% Hypokalemia Trend electrolytes replace as needed hypokalemia 3.2, Normocytic anemia normocytic anemia at 10.9, 32.3, Trend H&H History of a CVA left hemiparesis Fall precautions, PT eval Fractured L3 left pedicular screw and malaligned L3 right pedicular screw with an old L1 compression fracture. There is little bone within the L1 vertebra. It is without significant change from January 2023 Hypertension Resume appropriate home meds DVT prophylaxis heparin Cardiac diet Full code Discharge Plan: Home Plan to discharge in: 48 Hours - Advance Directives Does patient have a Living Will: No Does patient have a Durable POA for Healthcare: No - Code Status/Comfort Care Code Status: Full Code Physician Review: Patient Assessed, Agree with Above Assessment and Plan Critical Care: No Time Spent Managing Pts Care (In Minutes): 50
[2023-03-08] MEDS ORDERED: ONDANSETRON 4 MG/2 ML VIAL IV PRN (19:15)
--- NOTE | 2023-03-08 19:40 | RAD REPORT ---
EXAM DESCRIPTION: CT - Chest Abd Pelvis Wo Con - 03/08/2023 7:17 pm CLINICAL HISTORY: Chest and abdominal COMPARISON: January 2023 CT abdomen TECHNIQUE: Computed axial tomography of the chest, abdomen and pelvis was obtained. Oral contrast wa s given. IV contrast was not requested. All CT scans are performed using dose optimization technique as appropriate and may include automated exposure control or mA/KV adjustment according to patient size. FINDINGS: The evaluation of mediastinum, sofia, vessels and solid organs is limited secondary to the lack of IV contrast administration Mild bilateral interstitial lung opacities within predominantly the lower lobes. No mediastinal or hilar lymphadenopathy is seen. Ascending aortic diameter 4.1 centimeters A pleural effusion is not present. A pericardial effusion is not seen. Mildly cirrhotic liver suspected Spleen, pancreas, adrenals and right kidney grossly normal. Left renal cysts [place] catheter within the bladder. Mildly enlarged prostate gland. Right inguinal hernia contains fat . Stranding is present within the fat of the right upper pelvis. Appendix not seen. Pedicular screws united by rods have been placed T11-L3. The L3 left pedicular screw is broken. The L 3 right pedicular screw does not lie within the pedicle/vertebral body and is malaligned. There is li ttle bone within the L1 vertebra. Moderate anterior subluxation of L1 on L2 with angulation present. There is no evidence of diverticulitis. IMPRESSION: Mild bilateral interstitial lung opacities have a chronic appearance Stranding within the fat of the upper right pelvis. The etiology is uncertain but may be related to t he genitourinary system. It probably is not related to appendicitis. However, if the patient has clin ical symptoms to suggest this and since the appendix is not clearly seen then a CT scan of the abdome n with oral contrast would be recommended. Fractured L3 left pedicular screw and malaligned L3 right pedicular screw with an old L1 compression fracture. There is little bone within the L1 vertebra. It is without significant change from January
[2023-03-08] MEDS ORDERED: Levofloxacin500mg IV 500 MG/100 ML BAG IV ONE (20:00)
[2023-03-08 21:38] VITALS: BMI 25.8
--- NOTE | 2023-03-08 21:52 | P.CNS ---
Date of Consult: 03/08/23 Reason for Consult: CKD Requesting Physician: Catalina Norton Chief Complaint: Elevated heart rate History of Present Illness: 72-year-old male with a past medical history CVA left-sided weakness, hypertension, chronic indwelling Zhang catheter presents to the emergency room for elevated heart rate. is primary historian reports patient does out patient PT and OT, OT was concerned about patient's elevated heart rate patient was referred to the ER via EMS for evaluation. reports yesterday patient had a kink in his Zhang with no urinary output for a day or 2, home health nurse replace Zhang, reported Zhang was obstructed due to sediment. She reports Zhang has been draining more today. Associated symptoms were low-grade fever today, elevated heart rate, fatigue, weakness, poor appetite today. No reported chest pain, abdominal pain, edema, nausea vomiting diarrhea, confusion. Plan to admit for urosepsis, acute cystitis, acute kidney injury. [id number] 15:30 This 72 yrs old Male presents to ER via EMS with complaints of elevated heart rate per snw OT today. 15:30 Pt with CVA in November. In and out of the hospital since. most often for UTI. Pt has zhang snw that had not been draining recently, now draining but would like to r/o infection. Severity of symptoms: At their worst the symptoms were very mild. The patient has experienced similar episodes in the past. as noted. Allergies No Known Drug Allergies Allergy (Verified 01/25/23 18:30) Unknown Home medications list reviewed: Yes Home Medications: Levetiracetam 100 mg SUBQ BID 05/27/15 cloNIDine HCL [Catapres*] 0.1 mg PO TID 05/27/15 Vitamin D [Drisdol*] 50,000 unit PO Q7D #4 cap 01/27/23 levoFLOXacin [Levaquin*] 750 mg PO DAILY #10 tab 01/27/23 Quetiapine [Seroquel*] 25 mg PO BID #0 tab 01/28/23 - Past Medical/Surgical History Diabetic: No -: HYPERTENSION -: HX CVA -: expressive aphaisa -: KIVALINA -: Chronic anticoagulation -: CKD (Dr. Blanco) -: SKIN GRAFTS FROM BLE -: RECONSTRUCTION OF ARMS/HANDS -: CERVICAL FUSION -: Peg placement - Social History Alcohol use: No CD- Drugs: Yes Caffeine use: No Place of Residence: [place] Review of Systems 10-point ROS is otherwise unremarkable General: Weakness, Malaise Physical Examination Temp Pulse Resp BP Pulse Ox 98.4 F 101 H 20 139/72 03/08/23 20:18 03/08/23 20:15 03/08/23 20:15 03/08/23 20:15 General: In no apparent distress, Oriented x3, Cooperative HEENT: Atraumatic Neck: Supple Respiratory: Clear to auscultation bilaterally Cardiovascular: No edema Gastrointestinal: Soft and benign Musculoskeletal: No clubbing, No contractures Integumentary: No rashes, No cyanosis Neurological: Normal speech (Poor hearing) Urinary: Zhang catheter Laboratory Data (last 24 hrs) 03/08/23 03/08/23 03/08/23 15:15 15:15 15:15 WBC 15.70 H Hgb 10.9 L Hct 32.3 L Plt Count 189 PT 20.0 H INR 1.82 APTT 40.3 H Sodium 139 Potassium 3.3 L BUN 29 H Creatinine 1.52 H Glucose 110 H Total Bilirubin 0.9 AST 14 L ALT 14 L Alkaline Phosphatase 111 Imagings Data: [id number] EXAM DESCRIPTION: CT - Chest Abd Pelvis Wo Con - 03/08/2023 7:17 pm CLINICAL HISTORY: Chest and abdominal COMPARISON: January 2023 CT abdomen TECHNIQUE: Computed axial tomography of the chest, abdomen and pelvis was obtained. Oral contrast was given. IV contrast was not requested. All CT scans are performed using dose optimization technique as appropriate and may include automated exposure control or mA/KV adjustment according to patient size. FINDINGS: The evaluation of mediastinum, sofia, vessels and solid organs is limited secondary to the lack of IV contrast administration Mild bilateral interstitial lung opacities within predominantly the lower lobes. No mediastinal or hilar lymphadenopathy is seen. Ascending aortic diameter 4.1 centimeters A pleural effusion is not present. A pericardial effusion is not seen. Mildly cirrhotic liver suspected Spleen, pancreas, adrenals and right kidney grossly normal. Left renal cysts Zhang catheter within the bladder. Mildly enlarged prostate gland. Right inguinal hernia contains fat. Stranding is present within the fat of the right upper pelvis. Appendix not seen. Pedicular screws united by rods have been placed T11-L3. The L3 left pedicular screw is broken. The L3 right pedicular screw does not lie within the pedicle/vertebral body and is malaligned. There is little bone within the L1 vertebra. Moderate anterior subluxation of L1 on L2 with angulation present. There is no evidence of diverticulitis. IMPRESSION: Mild bilateral interstitial lung opacities have a chronic appearance [id number] EXAM DESCRIPTION: [facility] Single View03/08/2023 3:31 pm CLINICAL HISTORY: Tachycardia COMPARISON: 2014 FINDINGS: Mild bilateral pulmonary opacities Heart is normal size IMPRESSION: Mild bilateral pulmonary opacities may indicate interstitial pulmonary edema, pneumonia or pneumonitis Conclusions/Impression: Stage I MERARI likely due to hypovolemia CKD II with Proteinuria -No NSAIDs -Continue IVF Hypokalemia -Replete as ordered Moderate Hypoalbuminemia -Recommend protein supplementation Anemia in chronic illness -Monitor H&H Acute Cystitis Chronic Zhang -Continue abx -Follow up cultures Case reviewed with ER provider Hospitalist and ER notes reviewed Thank you kindly for the consultation
[2023-03-08] MEDS: NA CHLORIDE 0.9% 1,000 ML IV SCH (21:59)
[2023-03-08] MEDS: ACETAMINOPHEN 500 MG TAB PO PRN (22:00)
[2023-03-09] MEDS: HEPARIN 5000 UNIT/ML 1 ML VIAL SQ SCH ×3 (01:49→16:22)
--- NOTE | 2023-03-09 09:13 | P.CNS ---
Date of Consult: 03/09/23 Reason for Consult: urosepsis Chief Complaint: Elevated heart rate History of Present Illness: Patient is a 72-year-old male with a past medical history of hypertension, BPH, chronic indwelling Zhang catheter, history CVA who presented to the emergency department with complaints of elevated heart rate, low-grade fever and fatigue. Urinalysis with pyuria and bacteriuria suggestive of urinary tract infection. White blood cell count 15.7. Blood and urine cultures obtained. Patient started on Levaquin in the ED. Allergies No Known Drug Allergies Allergy (Verified 01/25/23 18:30) Unknown Home medications list reviewed: Yes Home Medications: Levetiracetam 100 mg SUBQ BID 05/27/15 cloNIDine HCL [Catapres*] 0.1 mg PO TID 05/27/15 Vitamin D [Drisdol*] 50,000 unit PO Q7D #4 cap 01/27/23 levoFLOXacin [Levaquin*] 750 mg PO DAILY #10 tab 01/27/23 Quetiapine [Seroquel*] 25 mg PO BID #0 tab 01/28/23 - Past Medical/Surgical History Diabetic: No -: HYPERTENSION -: HX CVA -: expressive aphaisa -: [place] -: Chronic anticoagulation -: CKD (Dr. Blanco) -: SKIN GRAFTS FROM BLE -: RECONSTRUCTION OF ARMS/HANDS -: CERVICAL FUSION -: Peg placement - Social History Alcohol use: No CD- Drugs: Yes Caffeine use: No Place of Residence: [facility] Review of Systems 10-point ROS is otherwise unremarkable General: Weakness Physical Examination Temp Pulse Resp BP Pulse Ox 97.9 F 90 18 136/66 95 03/09/23 08:00 03/09/23 08:00 03/09/23 08:00 03/09/23 08:00 03/09/23 08:00 General: Alert, In no apparent distress, Oriented x2, Confused, Other (Hearing impaired, does not have hearing aids on at this time. ) HEENT: Atraumatic, Normocephalic Neck: Supple, JVD not distended Respiratory: Normal air movement, Diminished, Other (on 2L NC) Cardiovascular: No edema, Normal pulses Gastrointestinal: Normal bowel sounds, No tenderness Musculoskeletal: No clubbing Integumentary: No rashes Urinary: Zhang catheter (chronic) Laboratory Data - Reviewed Microbiology data - reviewed Imagings Data: - CT chest abdomen pelvis 03/08: "Mild bilateral interstitial lung opacities within predominantly the lower lobes. No mediastinal or hilar lymphadenopathy is seen. Ascending aortic diameter 4.1 centimeters A pleural effusion is not present. A pericardial effusion is not seen. Mildly cirrhotic liver suspected Spleen, pancreas, adrenals and right kidney grossly normal. Left renal cysts Zhang catheter within the bladder. Mildly enlarged prostate gland. Right inguinal hernia contains fat. Stranding is present within the fat of the right upper pelvis. Appendix not seen. Pedicular screws united by rods have been placed T11-L3. The L3 left pedicular screw is broken. The L3 right pedicular screw does not lie within the pedicle/vertebral body and is malaligned. There is little bone within the L1 vertebra. Moderate anterior subluxation of L1 on L2 with angulation present. There is no evidence of diverticulitis." Conclusions/Impression: Problem list Urosepsis Catheter-Associated Urinary Tract Infection (POA) BPH Hypokalemia Anemia History CVA Hypertension MERARI Mild PCM Sepsis secondary to Urinary Tract Infection Catheter-Associated Urinary Tract Infection (POA) - Chronic indwelling zhang catheter - Previous urine culture on 01/24 resulting with Klebsiella oxytoca - CT chest abdomen pelvis 03/08: " Mild bilateral interstitial lung opacities have a chronic appearance" - Urinalysis 03/08: Extremely turbid, LE 500, RBC 11-20, WBC > 50, bacteria 20-50 - Urine culture 03/08: Pending - Blood cultures 03/08: Pending - Leukocytosis slightly improving (WBC 15.7 -> 13.9). - 24 Tmax = 101.2 F - Currently on Levaquin (started 03/08) Recommendations - CAUTI: continue antibiotic therapy for at least 7 days (03/08 to 03/15) - Currently on Levaquin, continue for now. Awaiting final urine and blood culture results. Will adjust antibiotics as appropriate. - Nutritional supplementation - Monitor WBC and fever trends. PRN tylenol. Case discussed with Tiarra Rowland
[2023-03-09] MEDS: NA CHLORIDE 0.9% 1,000 ML IV SCH (09:20)
--- NOTE | 2023-03-09 09:52 | P.PN ---
Date of Service: 03/09/23 Vital Signs Temp Pulse Resp BP Pulse Ox 97.9 F 90 18 136/66 95 03/09/23 08:00 03/09/23 08:00 03/09/23 08:00 03/09/23 08:00 03/09/23 08:00 Medications Acetaminophen (Acetaminophen 500 Mg Tab) 500 mg PO Q4HP PRN PRN Reason: Pain scale 2-4 (Mild) Last Admin: 03/08/23 22:00 Dose: 500 mg Heparin Sodium (Porcine) (Heparin 5000 Unit/Ml 1 Ml Vial) 5,000 unit SQ Q8HR JESENIA Last Admin: 03/09/23 01:49 Dose: 5,000 unit Levofloxacin/Dextrose (Levaquin 500 Mg/100 Ml Ivpb) 500 mg in 100 mls @ 100 mls/hr IV Q24H JESENIA; Protocol Sodium Chloride (Sodium Chloride 0.45%) 1,000 mls @ 100 mls/hr IV .Q10H JESENIA Ondansetron HCl (Ondansetron 4 Mg/2 Ml Vial) 4 mg IV Q6HP PRN PRN Reason: NAUSEA / VOMITING Sodium Chloride (Flush Normal Saline 10 Ml) 10 ml IV BID JESENIA Last Admin: 03/08/23 21:00 Dose: 10 ml Lab Results (last 24 hrs) 03/08/23 17:05: SARS-CoV-2 Ag (Rapid) Negative 03/08/23 17:00: Urine Color Yellow, Urine Clarity Extremely turbid H, Urine pH 7.0, Ur Specific Lewis 1.020, Glucose (UA)(Auto) Negative, Urine Ketones Negative, Urine Blood 1+ H, Urine Nitrite Negative, Urine Bilirubin Negative, Urine Urobilinogen Normal, Ur Leukocyte Esterase 500 H, Urine RBC 11-20 H, Urine WBC >50 H, Ur Squamous Epith Cells None seen, Urine Bacteria 20-50 H, Urine Mucus Slight, Urine Culture Reflexed Reflexed, Urine Total Protein 1+ H 03/08/23 15:15: PT 20.0 H, INR 1.82, APTT 40.3 H 03/08/23 15:15: Lactic Acid 1.8 03/08/23 15:15: Sodium 139, Potassium 3.3 L, Chloride 105, Carbon Dioxide 25, Anion Gap 12.3, BUN 29 H, Creatinine 1.52 H, Est GFR (CKD-EPI) 48 L, Glucose 110 H, Calcium 8.3 L, Total Bilirubin 0.9, AST 14 L, ALT 14 L, Alkaline Phosphatase 111, Troponin I High Sens 37.2, Serum Total Protein 6.0 L, Albumin 2.7 L, Globul in 3.3, Albumin/Globulin Ratio 0.8 L 03/08/23 15:15: WBC 15.70 H, RBC 3.37 L, Hgb 10.9 L, Hct 32.3 L, MCV 96.0, MCH 32.3, MCHC 33.7, RDW 13.8, Plt Count 189, MPV 7.4 L, Neutrophils % 87.3 H, Lymphocytes % 1.8 L, Monocytes % 10.6, Eosinophils % 0.1, Basophils % 0.2, Absolute Neutrophils 13.7 H, Absolute Lymphocytes 0.3 L, Absolute Monocytes 1.7 H, Absolute Eosinophils 0.0, Absolute Basophils 0.0, Platelet Estimate Adeq, Morphology Comment Not seen, Smear Scan Ok Microbiology Results 03/08/23 16:15 Blood - Blood Blood Culture Gram Stain - Final 03/08/23 15:40 Blood - Blood Gram Stain - Final Assessment/ Plan: Nephrology No dyspnea No chest pain No acute events overnight Vitals, medications, blood work and imaging reviewed in the chart General: In no apparent distress, Oriented x3, Cooperative HEENT: Atraumatic Neck: Supple Respiratory: Clear to auscultation bilaterally Cardiovascular: No edema Gastrointestinal: Soft and benign Musculoskeletal: No clubbing, No contractures Integumentary: No rashes, No cyanosis Neurological: Normal speech (Poor hearing) Urinary: De Los Santos catheter Laboratory Data (last 24 hrs) 03/08/23 03/08/23 03/08/23 15:15 15:15 15:15 WBC 15.70 H Hgb 10.9 L Hct 32.3 L Plt Count 189 PT 20.0 H INR 1.82 APTT 40.3 H Sodium 139 Potassium 3.3 L BUN 29 H Creatinine 1.52 H Glucose 110 H Total Bilirubin 0.9 AST 14 L ALT 14 L Alkaline Phosphatase 111 Imagings Data: [id number] EXAM DESCRIPTION: CT - Chest Abd Pelvis Wo Con - 03/08/2023 7:17 pm CLINICAL HISTORY: Chest and abdominal COMPARISON: January 2023 CT abdomen TECHNIQUE: Computed axial tomography of the chest, abdomen and pelvis was obtained. Oral contrast was given. IV contrast was not requested. All CT scans are performed using dose optimization technique as appropriate and may include automated exposure control or mA/KV adjustment according to patient size. FINDINGS: The evaluation of mediastinum, sofia, vessels and solid organs is limited secondary to the lack of IV contrast administration Mild bilateral interstitial lung opacities within predominantly the lower lobes. No mediastinal or hilar lymphadenopathy is seen. Ascending aortic diameter 4.1 centimeters A pleural effusion is not present. A pericardial effusion is not seen. Mildly cirrhotic liver suspected Spleen, pancreas, adrenals and right kidney grossly normal. Left renal cysts De [place] Santos catheter within the bladder. Mildly enlarged prostate gland. Right inguinal hernia contains fat. Stranding is present within the fat of the right upper pelvis. Appendix not seen. Pedicular screws united by rods have been placed T11-L3. The L3 left pedicular screw is broken. The L3 right pedicular screw does not lie within the pedicle/vertebral body and is malaligned. There is little bone within the L1 vertebra. Moderate anterior subluxation of L1 on L2 with angulation present. There is no evidence of diverticulitis. IMPRESSION: Mild bilateral interstitial lung opacities have a chronic appearance [id number] EXAM DESCRIPTION: [facility] Single View03/08/2023 3:31 pm CLINICAL HISTORY: Tachycardia COMPARISON: 2014 FINDINGS: Mild bilateral pulmonary opacities Heart is normal size IMPRESSION: Mild bilateral pulmonary opacities may indicate interstitial pulmonary edema, pneumonia or pneumonitis Conclusions/Impression: Stage I MERARI likely due to hypovolemia CKD II with Proteinuria -No NSAIDs -Change IVF to 1/2NS Hypokalemia -Replete prn Moderate Hypoalbuminemia -Recommend protein supplementation Anemia in chronic illness -Monitor H&H Acute Cystitis with hematuria Chronic De [place] Santos -Continue abx -Follow up cultures Hospitalist and ID notes reviewed
[2023-03-09] MEDS: NACHLORIDE 0.45% 1,000 ML IV SCH ×2 (10:51→20:48)
[2023-03-09] MEDS: CEFTRIAXONE 1,000 MG in NA CHLORIDE 0.9% 50 ML IVPB SCH ×2 (10:51→20:44)
[2023-03-09 10:55] LABS: Absolute Lymphocytes (CBC) 0.5 K/uL (0.7-4.9); Hematocrit 32.9 % (39.6-49.0); Lymphocytes % 3.4 % (15.3-44.8); MCV 95.6 fL (80-100); MPV 7.8 fL (7.6-11.3); Platelets 158 thou/uL (152-406); RBC Red Blood Cell Count 3.44 M/uL (4.33-5.43)
[2023-03-09 11:07] LABS: Magnesium 1.9 mg/dL (1.6-2.4); Potassium 3.6 mEq/L (3.5-5.1)
--- NOTE | 2023-03-09 18:45 | EKG ---
Test Date: 2023-03-08 Test Time: 15:23:21 Claims Adjudicator: ANATOLIY MEASUREMENT RESULTS: Intervals: Rate: 91 SD: 156 QRSD: 96 QT: 356 QTc: 437 [place]: P: 78 SD: 156 QRS: 77 T: 82 INTERPRETIVE STATEMENTS: Normal sinus rhythm Nonspecific T wave abnormality Abnormal ECG Compared to ECG 09/12/2014 10:29:46 T-wave abnormality now present Electronically Signed On 03-09-23 18:42:21 CDT by Zeus Chandler
[2023-03-09] MEDS ORDERED: Levofloxacin500mg IV 500 MG/100 ML BAG IV SCH (20:00)
[2023-03-09 23:46] VITALS: O2SAT 97
[2023-03-10] MEDS: HEPARIN 5000 UNIT/ML 1 ML VIAL SQ SCH ×3 (00:32→16:29)
[2023-03-10 04:16] LABS: Absolute Lymphocytes (CBC) 0.8 K/uL (0.7-4.9); Hematocrit 27.9 % (39.6-49.0); Lymphocytes % 7.6 % (15.3-44.8); MCV 94.7 fL (80-100); MPV 8.9 fL (7.6-11.3); Platelets 154 thou/uL (152-406); RBC Red Blood Cell Count 2.94 M/uL (4.33-5.43)
[2023-03-10 04:32] LABS: Magnesium 1.5 mg/dL (1.6-2.4); Potassium 3.1 mEq/L (3.5-5.1)
[2023-03-10] MEDS: NACHLORIDE 0.45% 1,000 ML IV SCH ×2 (05:49→16:00)
[2023-03-10] MEDS ORDERED: POTASSIUM 25 MEQ EFFERV TAB PO ONE ×2 (06:00→14:09)
[2023-03-10] MEDS ORDERED: Magnesium Sulfate 2gm IVPB 2 G/50 ML BAG IV ONE (06:00)
[2023-03-10] MEDS: CEFTRIAXONE 1,000 MG in NA CHLORIDE 0.9% 50 ML IVPB SCH ×2 (08:21→21:00)
--- NOTE | 2023-03-10 09:16 | P.PN ---
Date of Service: 03/10/23 Chief Complaint: Elevated heart rate Subjective: Patient seen and examined at bedside. Resting comfortably in bed. Denies any new or worsening complaints. No acute events reported overnight. Physical Examination Temp Pulse Resp BP Pulse Ox 98.3 F 73 17 120/64 95 03/10/23 04:00 03/10/23 04:00 03/10/23 04:00 03/10/23 04:00 03/10/23 04:00 General: Alert, In no apparent distress, Oriented x2, Confused, Other (Hearing impaired, does not have hearing aids on at this time. ) HEENT: Atraumatic, Normocephalic Neck: Supple, JVD not distended Respiratory: Normal air movement, Diminished, Other (on 2L NC) Cardiovascular: No edema, Normal pulses Gastrointestinal: Normal bowel sounds, No tenderness Musculoskeletal: No clubbing Integumentary: No rashes Urinary: Zhang catheter (chronic) Laboratory Data - Reviewed Microbiology data - reviewed Imagings Data: - CT chest abdomen pelvis 03/08: "Mild bilateral interstitial lung opacities within predominantly the lower lobes. No mediastinal or hilar lymphadenopathy is seen. Ascending aortic diameter 4.1 centimeters A pleural effusion is not present. A pericardial effusion is not seen. Mildly cirrhotic liver suspected Spleen, pancreas, adrenals and right kidney grossly normal. Left renal cysts Zhang catheter within the bladder. Mildly enlarged prostate gland. Right inguinal hernia contains fat. Stranding is present within the fat of the right upper pelvis. Appendix not seen. Pedicular screws united by rods have been placed T11-L3. The L3 left pedicular screw is broken. The L3 right pedicular screw does not lie within the pedicle/vertebral body and is malaligned. There is little bone within the L1 vertebra. Moderate anterior subluxation of L1 on L2 with angulation present. There is no evidence of diverticulitis." Medications list reviewed Assessment and plan Problem list Urosepsis Catheter-Associated Urinary Tract Infection (POA) BPH Hypokalemia Anemia History CVA Hypertension MERARI Mild PCM Sepsis Gram-Negative Bacteremia secondary to Catheter-Associated Urinary Tract Infection (POA) - Chronic indwelling zhang catheter - Previous urine culture on 01/24 resulting with Klebsiella oxytoca - CT chest abdomen pelvis 03/08: " Mild bilateral interstitial lung opacities have a chronic appearance" - Urinalysis 03/08: Extremely turbid, LE 500, RBC 11-20, WBC > 50, bacteria 20-50 - Urine culture 03/08: Gram negative rods - Blood cultures 03/08: Gram-negative rods - Leukocytosis improving (WBC 13.9 -> 10.1). - Afebrile 24 hours - Currently on Levaquin (started 03/08) Recommendations Urine and blood cultures with gram-negative rods. - Currently on Levaquin, continue for now. - Awaiting final urine and blood culture results. Will adjust antibiotics as appropriate Bacteremia: Continue antibiotic therapy for 2 weeks - Nutritional supplementation - Monitor WBC and fever trends. PRN tylenol. Case discussed with Tiarra Rowland
[2023-03-10 13:36] LABS: Magnesium 2.3 mg/dL (1.6-2.4); Potassium 3.5 mEq/L (3.5-5.1)
[2023-03-10] MEDS ORDERED: QUETIAPINE 25 MG TAB PO ONE (19:59)
--- NOTE | 2023-03-10 20:30 | P.PN ---
Date of Service: 03/10/23 Vital Signs Temp Pulse Resp BP Pulse Ox 98.6 F 75 16 161/77 H 96 03/10/23 16:00 03/10/23 16:00 03/10/23 16:00 03/10/23 16:00 03/10/23 16:00 Medications Acetaminophen (Acetaminophen 500 Mg Tab) 500 mg PO Q4HP PRN PRN Reason: Pain scale 2-4 (Mild) Last Admin: 03/08/23 22:00 Dose: 500 mg Heparin Sodium (Porcine) (Heparin 5000 Unit/Ml 1 Ml Vial) 5,000 unit SQ Q8HR [facility] Last Admin: 03/10/23 16:29 Dose: 5,000 unit Sodium Chloride (Sodium Chloride 0.45%) 1,000 mls @ 100 mls/hr IV .Q10H [facility] Last Admin: 03/10/23 16:00 Dose: 1,000 mls Ceftriaxone Sodium 1,000 mg/ (Sodium Chloride) 50 mls @ 100 mls/hr IVPB Q12HR [facility] Last Admin: 03/10/23 08:21 Dose: 50 mls Ondansetron HCl (Ondansetron 4 Mg/2 Ml Vial) 4 mg IV Q6HP PRN PRN Reason: NAUSEA / VOMITING Sodium Chloride (Flush Normal Saline 10 Ml) 10 ml IV BID [facility] Last Admin: 03/10/23 08:22 Dose: 10 ml Microbiology Results 03/08/23 17:00 Clean Catch Urine [place] Count - Preliminary >100,000 CFU/ML. 03/08/23 17:00 Clean Catch Urine - Preliminary Gram Neg Zeyad 03/08/23 15:40 Blood - Blood Aerobic Blood Culture - Preliminary Gram Neg Zeyad 03/08/23 15:40 Blood - Blood Blood Culture Gram Stain - Final 03/08/23 15:40 Blood - Blood Anaerobic Blood Culture - Preliminary Gram Neg Zeyad 03/08/23 15:40 Blood - Blood Gram Stain - Final 03/08/23 16:15 Blood - Blood Aerobic Blood Culture - Preliminary Gram Neg Zeyad 03/08/23 16:15 Blood - Blood Blood Culture Gram Stain - Final 03/08/23 16:15 Blood - Blood Anaerobic Blood Culture - Preliminary Gram Neg Zeyad 03/08/23 16:15 Blood - Blood Gram Stain - Final Assessment/ Plan: Nephrology No dyspnea No chest pain Poor hearing No acute events overnight Vitals, medications, blood work and imaging reviewed in the chart General: In no apparent distress, Oriented x3, Cooperative HEENT: Atraumatic Neck: Supple Respiratory: Clear to auscultation bilaterally Cardiovascular: No edema Gastrointestinal: Soft and benign Musculoskeletal: No clubbing, No contractures Integumentary: No rashes, No cyanosis Neurological: Normal speech (Poor hearing) Urinary: De [place] Santos catheter Laboratory Data (last 24 hrs) 03/08/23 03/08/23 03/08/23 15:15 15:15 15:15 WBC 15.70 H Hgb 10.9 L Hct 32.3 L Plt Count 189 PT 20.0 H INR 1.82 APTT 40.3 H Sodium 139 Potassium 3.3 L BUN 29 H Creatinine 1.52 H Glucose 110 H Total Bilirubin 0.9 AST 14 L ALT 14 L Alkaline Phosphatase 111 Imagings Data: [id number] EXAM DESCRIPTION: CT - Chest Abd Pelvis Wo Con - 03/08/2023 7:17 pm CLINICAL HISTORY: Chest and abdominal COMPARISON: January 2023 CT abdomen TECHNIQUE: Computed axial tomography of the chest, abdomen and pelvis was obtained. Oral contrast was given. IV contrast was not requested. All CT scans are performed using dose optimization technique as appropriate and may include automated exposure control or mA/KV adjustment according to patient size. FINDINGS: The evaluation of mediastinum, sofia, vessels and solid organs is limited secondary to the lack of IV contrast administration Mild bilateral interstitial lung opacities within predominantly the lower lobes. No mediastinal or hilar lymphadenopathy is seen. Ascending aortic diameter 4.1 centimeters A pleural effusion is not present. A pericardial effusion is not seen. Mildly cirrhotic liver suspected Spleen, pancreas, adrenals and right kidney grossly normal. Left renal cysts De [place] catheter within the bladder. Mildly enlarged prostate gland. Right inguinal hernia contains fat. Stranding is present within the fat of the right upper pelvis. Appendix not seen. Pedicular screws united by rods have been placed T11-L3. The L3 left pedicular screw is broken. The L3 right pedicular screw does not lie within the pedicle/vertebral body and is malaligned. There is little bone within the L1 vertebra. Moderate anterior subluxation of L1 on L2 with angulation present. There is no evidence of diverticulitis. IMPRESSION: Mild bilateral interstitial lung opacities have a chronic appearance [id number] EXAM DESCRIPTION: [facility] Single View03/08/2023 3:31 pm CLINICAL HISTORY: Tachycardia COMPARISON: 2014 FINDINGS: Mild bilateral pulmonary opacities Heart is normal size IMPRESSION: Mild bilateral pulmonary opacities may indicate interstitial pulmonary edema, pneumonia or pneumonitis Conclusions/Impression: Stage I MERARI likely due to hypovolemia CKD II with Proteinuria -No NSAIDs -Hold IVF Hypokalemia -Replete as ordered -Start Lisinopril Hypomagnesemia -Replete magnesium HTN with CKD -Start Lisinopril daily Moderate Hypoalbuminemia -Recommend protein supplementation Anemia in chronic illness -Monitor H&H Acute GNR Cystitis with hematuria Chronic [place] -Continue abx -Follow up cultures Hospitalist and ID notes reviewed
[2023-03-10] MEDS ORDERED: HALOPERIDOL LACT 5 MG/ML INJ IM ONE (22:16)
--- NOTE | 2023-03-10 22:21 | P.PN ---
Date of Service: 03/09/23 Subjective Patient is doing better. Patient is wanting to go home. Clinically much improved. Awaiting for cultures Physical Examination - Physical Exam Vitals: Reviewed General: Alert, In no apparent distress, Oriented x3; mild confusion Respiratory: Normal air movement, Crackles/rales Cardiovascular: No edema, Normal pulses, Regular rate/rhythm, Normal S1 S2 Gastrointestinal: Normal bowel sounds, Soft and benign Musculoskeletal: No clubbing, No swelling, Other (Left upper extremity, left lower extremity weakness secondary to prior CVA) Neurological: Normal speech, Normal strength at 5/5 x4 extr, Cranial nerves 3-12 intact, Other (Hard of hearing) Assessment and Plan - Assessment/Plan Assessment Urosepsis-chronic indwelling De Los Santos catheter Acute cystitis Acute kidney injury Mild bilateral interstitial lung opacities within predominantly the lower lobes. Hypokalemia Normocytic anemia History of a CVA Hypertension Left renal cyst Enlarged prostate Right inguinal hernia contains fat Fractured L3 left pedicular screw and maligned L3 right pedicular screw with an old L1 compression fracture. There is little bone within the L1 vertebra. It is without significant change from January 2023 Plan Urinary tract infection Bacteremia Acute cystitis Acute kidney injury Continue with antibiotic therapy. Awaiting for culture results. Mild bilateral pulmonary opacities may indicate interstitial pulmonary edema, pneumonia or pneumonitis, O2 2 L keep sats greater than 92% Hypokalemia Trend electrolytes replace as needed hypokalemia 3.2, Normocytic anemia Normocytic anemia at 10.9, 32.3, Trend H&H History of a CVA left hemiparesis Fall precautions, PT eval Fractured L3 left pedicular screw and malaligned L3 right pedicular screw with an old L1 compression fracture. There is little bone within the L1 vertebra. It is without significant change from January 2023 Hypertension Resume appropriate home meds DVT prophylaxis heparin Cardiac diet Full code Discharge Plan: Home Plan to discharge in: 48 Hours - Advance Directives Does patient have a Living Will: No Does patient have a Durable POA for Healthcare: No - Code Status/Comfort Care Code Status: Full Code Physician Review: Patient Assessed, Agree with Above Assessment and Plan Critical Care: No Time Spent Managing Pts Care (In Minutes): 30
--- NOTE | 2023-03-10 22:22 | P.PN ---
Date of Service: 03/10/23 Subjective Doing well with no new complaints. Blood cultures positive for gram-negative rods: 4 out of 4 bottles. Awaiting for identification and sensitivities. Physical Examination - Physical Exam Vitals: Reviewed General: Alert, In no apparent distress, Oriented x3; mild confusion Respiratory: Normal air movement, Crackles/rales Cardiovascular: No edema, Normal pulses, Regular rate/rhythm, Normal S1 S2 Gastrointestinal: Normal bowel sounds, Soft and benign Musculoskeletal: No clubbing, No swelling, Other (Left upper extremity, left lower extremity weakness secondary to prior CVA) Neurological: Patient with left-sided weakness. Assessment and Plan - Assessment/Plan Assessment Urosepsis-chronic indwelling De Los Santos catheter Acute cystitis Acute kidney injury Mild bilateral interstitial lung opacities within predominantly the lower lobes. Hypokalemia Normocytic anemia History of a CVA Hypertension Left renal cyst Enlarged prostate Right inguinal hernia contains fat Fractured L3 left pedicular screw and maligned L3 right pedicular screw with an old L1 compression fracture. There is little bone within the L1 vertebra. It is without significant change from January 2023 Plan Urinary tract infection Bacteremia Acute cystitis Acute kidney injury Continue with antibiotic therapy. Awaiting for culture results. Mild bilateral pulmonary opacities may indicate interstitial pulmonary edema, pneumonia or pneumonitis, O2 2 L keep sats greater than 92% Hypokalemia Trend electrolytes replace as needed hypokalemia 3.2, Normocytic anemia Normocytic anemia at 10.9, 32.3, Trend H&H History of a CVA left hemiparesis Fall precautions, PT eval Fractured L3 left pedicular screw and malaligned L3 right pedicular screw with an old L1 compression fracture. There is little bone within the L1 vertebra. It is without significant change from January 2023 Hypertension Resume appropriate home meds DVT prophylaxis heparin Cardiac diet Full code Discharge Plan: Home Plan to discharge in: 48 Hours - Advance Directives Does patient have a Living Will: No Does patient have a Durable POA for Healthcare: No - Code Status/Comfort Care Code Status: Full Code Physician Review: Patient Assessed, Agree with Above Assessment and Plan Critical Care: No Time Spent Managing Pts Care (In Minutes): 30
[2023-03-10] MEDS: lisinopriL 5 MG TAB PO SCH (22:55)
[2023-03-11] MEDS ORDERED: WATER FOR INJ,STERILE 10 ML IM PRN (00:18)
[2023-03-11] MEDS ORDERED: ZIPRASIDONE MESYLA 20 MG/VIAL IM ONE (00:18)
[2023-03-11] MEDS: HEPARIN 5000 UNIT/ML 1 ML VIAL SQ SCH ×2 (01:00→08:53)
[2023-03-11] MEDS: ACETAMINOPHEN 500 MG TAB PO PRN (03:52)
[2023-03-11] MEDS: lisinopriL 5 MG TAB PO SCH (08:53)
[2023-03-11] MEDS: CEFTRIAXONE 1,000 MG in NA CHLORIDE 0.9% 50 ML IVPB SCH (08:53)
[2023-03-11] MEDS ORDERED: CEFDINIR 300 MG CAP PO SCH (09:45)
[2023-03-11 09:48] LABS: Absolute Lymphocytes (CBC) 0.5 K/uL (0.7-4.9); Hematocrit 32.3 % (39.6-49.0); Lymphocytes % 7.3 % (15.3-44.8); MCV 93.7 fL (80-100); MPV 8.6 fL (7.6-11.3); Platelets 204 thou/uL (152-406); RBC Red Blood Cell Count 3.45 M/uL (4.33-5.43)
[2023-03-11 10:01] LABS: Magnesium 2.2 mg/dL (1.6-2.4); Potassium 3.3 mEq/L (3.5-5.1)
[2023-03-11] MEDS ORDERED: QUETIAPINE 25 MG TAB PO ONE (10:12)
[2023-03-11] MEDS ORDERED: CEFTRIAXONE 1000 MG/VIAL IM ONE (12:30)
[2023-03-11] MEDS ORDERED: LIDOCAINE 1% MPF 5 ML VIAL IM ONE (12:30)
[2023-03-11 12:53] VITALS: BP 132/68; TEMP 98.1
--- NOTE | 2023-03-11 14:01 | P.PN ---
Date of Service: 03/11/23 Chief Complaint: Elevated heart rate Subjective: Improving. Patient seen and examined at bedside. Resting comfortably in bed. Denies any new or worsening complaints. No acute events reported overnight. Patient states he wants to go home. Physical Examination Temp Pulse Resp BP Pulse Ox 98.1 F 72 15 132/68 99 03/11/23 12:00 03/11/23 12:00 03/11/23 12:00 03/11/23 12:00 03/11/23 12:00 General: Alert, In no apparent distress, Oriented x2, Confused. Hearing impaired. HEENT: Atraumatic, Normocephalic Neck: Supple, JVD not distended Respiratory: Normal air movement, Diminished. Cardiovascular: No edema, Normal pulses Gastrointestinal: Normal bowel sounds, No tenderness Musculoskeletal: No clubbing Integumentary: No rashes Urinary: Zhang catheter (chronic) Laboratory Data - Reviewed Microbiology data - reviewed Imagings Data: - CT chest abdomen pelvis 03/08: "Mild bilateral interstitial lung opacities within predominantly the lower lobes. No mediastinal or hilar lymphadenopathy is seen. Ascending aortic diameter 4.1 centimeters A pleural effusion is not present. A pericardial effusion is not seen. Mildly cirrhotic liver suspected Spleen, pancreas, adrenals and right kidney grossly normal. Left renal cysts Zhang catheter within the bladder. Mildly enlarged prostate gland. Right inguin al hernia contains fat. Stranding is present within the fat of the right upper pelvis. Appendix not seen. Pedicular screws united by rods have been placed T11-L3. The L3 left pedicular screw is broken. The L3 right pedicular screw does not lie within the pedicle/vertebral body and is malaligned. There is little bone within the L1 vertebra. Moderate anterior subluxation of L1 on L2 with angulation present. There is no evidence of diverticulitis." Medications list reviewed Assessment and plan Problem list Urosepsis Catheter-Associated Urinary Tract Infection (POA) BPH Hypokalemia Anemia History CVA Hypertension MERARI Mild PCM Sepsis Gram-Negative Bacteremia secondary to Catheter-Associated Urinary Tract Infection (POA) - Chronic indwelling zhang catheter - Previous urine culture on 01/24 resulting with Klebsiella oxytoca - CT chest abdomen pelvis 03/08: " Mild bilateral interstitial lung opacities have a chronic appearance" - Urinalysis 03/08: Extremely turbid, LE 500, RBC 11-20, WBC > 50, bacteria 20-50 - Urine culture 03/08: Proteus mirabilis - Blood cultures 03/08: Proteus mirabilis - Leukocytosis resolved. - Afebrile 24 hours - Currently on Levaquin (started 03/08) Recommendations Urine and blood cultures with Proteus mirabilis, resistant to Levaquin. - Discontinue Levaquin - Start on Rocephin IV. - Bacteremia: Continue antibiotic therapy for 2 weeks - Nutritional supplementation - Follow up with urology as outpatient Case discussed with Tiarra Rowland
== END 2023-03-11 13:38 | disposition home health service (06) | DRG 699 ==
LOC: ER 14:44 → ERHOLD 19:10 → 2ND 19:59
PROVIDERS: ADMIT Hospitalist; ATTEND Hospitalist
DX: T83.518A Infection and inflammatory reaction due to other urinary catheter, initial encounter (principal); E44.1 Mild protein-calorie malnutrition; N17.9 Acute kidney failure, unspecified; N30.01 Acute cystitis with hematuria; Z16.29 Resistance to other single specified antibiotic; E87.6 Hypokalemia; I12.9 Hypertensive chronic kidney disease with stage 1 through stage 4 chronic kidney disease, or unspecified chronic kidney disease; N18.2 Chronic kidney disease, stage 2 (mild); D63.1 Anemia in chronic kidney disease; N28.1 Cyst of kidney, acquired; N40.0 Benign prostatic hyperplasia without lower urinary tract symptoms; K40.90 Unilateral inguinal hernia, without obstruction or gangrene, not specified as recurrent; M48.56XD Collapsed vertebra, not elsewhere classified, lumbar region, subsequent encounter for fracture with routine healing; J84.89 Other specified interstitial pulmonary diseases; E88.09 Other disorders of plasma-protein metabolism, not elsewhere classified; H91.90 Unspecified hearing loss, unspecified ear; B96.1 Klebsiella pneumoniae [K. pneumoniae] as the cause of diseases classified elsewhere; B96.4 Proteus (mirabilis) (morganii) as the cause of diseases classified elsewhere; Z68.25 Body mass index [BMI] 25.0-25.9, adult; Z20.822 Contact with and (suspected) exposure to COVID-19
CPT/HCPCS: 36415; 71045; 71250; 74176; 80048; 80053; 81001; 83605; 83735; 84132; 84484; 85025; 85610; 85730; 87040; 87077; 87086; 87088; 87186; 87205; 87811; 93005; 96374; 97110; 97116; 97161; 97530; 99285; J0696; J1630; J1644; J2001; J3475; J3486; J7030

== ENCOUNTER 2023-04-06 13:20 | Emergency (ER) | payer OTHER ==
[2023-04-06 14:26] LABS: Absolute Lymphocytes (CBC) 0.8 K/uL (0.7-4.9); Hematocrit 36.5 % (39.6-49.0); Lymphocytes % 6.5 % (15.3-44.8); MCV 94.4 fL (80-100); MPV 7.8 fL (7.6-11.3); Platelets 216 thou/uL (152-406); RBC Red Blood Cell Count 3.86 M/uL (4.33-5.43)
--- NOTE | 2023-04-06 14:26 | RAD REPORT ---
EXAM DESCRIPTION: CT - Stone Protocol - 04/06/2023 1:54 pm CLINICAL HISTORY: Abdominal pain. COMPARISON: January 2023 TECHNIQUE: Computed axial tomography of the abdomen pelvis was obtained without oral or IV contrast. Lack of IV and oral contrast limits evaluation of solid organs, appendix, bowel, and vessels. Vivas l reformatted images were obtained and reviewed. All CT scans are performed using dose optimization technique as appropriate and may include automated exposure control or mA/KV adjustment according to patient size. FINDINGS: The bladder wall is thickened. Small amount of air is probably related to the prior De Los Santos catheter. Small area of increased density present in posterior bladder. Mild hydronephrosis bilaterally. Small left renal cyst. Genitourinary calculus is not seen. Prostate gland is moderately enlarged The liver, spleen, pancreas and adrenals appear grossly normal There is no evidence of diverticulitis. Postsurgical changes involve lumbar spine. Small to moderate right and small left inguinal hernias co ntain fat Pedicular screws united by rods have been placed from T12-L3. The L1 vertebra is mostly absent. Mild to moderate anterior subluxation L1 on L2. L3 left pedicular screw is broken. All of these changes ar e chronic IMPRESSION: Bladder wall thickening could be related to a chronic outlet obstruction or cystitis. Mild bilateral hydronephrosis probably related to bladder outlet obstruction Small area of increased density within the bladder may represent blood.
[2023-04-06 14:28] LABS: Protime INR 1.31
[2023-04-06] MEDS ORDERED: NA CHLORIDE 0.9% 500 ML ONE (14:35)
[2023-04-06] MEDS ORDERED: CEFTRIAXONE 1000 MG/VIAL ONE (14:35)
[2023-04-06] MEDS ORDERED: NA CHLORIDE 0.9% 50 ML ONE (14:35)
[2023-04-06 14:45] LABS: Albumin 3.5 g/dL (3.4-5.0); Potassium 3.8 mEq/L (3.5-5.1); Protein, Total 7.1 g/dL (6.4-8.2)
--- NOTE | 2023-04-06 14:47 | EDPHYS ---
Physician Documentation [facility] Name: Lamberto Simpson Age: 72 yrs Sex: Male : 1950 Arrival Date: 04/06/2023 Time: 13:20 Bed 6 Private MD: ED Physician Colton Long HPI: 04/06 14:14 This 72 yrs old Male presents to ER via EMS with complaints of Needs Urinary jl Catheter Replacement. 14:14 The patient presents with urinary symptoms, dysuria, retention. Onset: The jl symptoms/episode began/occurred just prior to arrival, this morning. Modifying factors: The symptoms are alleviated by nothing, the symptoms are aggravated by nothing. Associated signs and symptoms: The patient has no apparent associated signs or symptoms. Severity of symptoms: At their worst the symptoms were mild, in the emergency department the symptoms are unchanged. The patient has experienced similar episodes in the past, multiple times. Historical: - Allergies: 14:31 No Known Allergies; ld1 - Home Meds: 13:35 Baclofen Oral [Active]; db - PMHx: 13:35 CVA; Hypertension; db - Immunization history:: Adult Immunizations unknown. - Social history:: Smoking status: Patient denies any tobacco usage or history of. - Family history:: not pertinent. ROS: 14:14 Constitutional: Negative for fever, chills, and weight loss, Eyes: Negative for injury, jl pain, redness, and discharge, ENT: Negative for injury, pain, and discharge, Neck: Negative for injury, pain, and swelling, Cardiovascular: Negative for chest pain, palpitations, and edema, Respiratory: Negative for shortness of breath, cough, wheezing, and pleuritic chest pain, Abdomen/GI: Negative for abdominal pain, nausea, vomiting, diarrhea, and constipation, Back: Negative for injury and pain, MS/Extremity: Negative for injury and deformity, Skin: Negative for injury, rash, and discoloration, Neuro: Negative for headache, weakness, numbness, tingling, and seizure, Psych: Negative for depression, anxiety, suicide ideation, homicidal ideation, and hallucinations, Allergy/Immunology: Negative for hives, rash, and allergies, Endocrine: Negative for neck swelling, polydipsia, polyuria, polyphagia, and marked weight changes, Hematologic/Lymphatic: Negative for swollen nodes, abnormal bleeding, and unusual bruising, 14:14 : Positive for urinary frequency, hematuria, Exam: 14:14 Constitutional: This is a well developed, well nourished patient who is awake, alert, jl and in no acute distress. Head/Face: Normocephalic, atraumatic. Eyes: Pupils equal round and reactive to light, extra-ocular motions intact. Lids and lashes normal. Conjunctiva and sclera are non-icteric and not injected. Cornea within normal limits. Periorbital areas with no swelling, redness, or edema. ENT: Nares patent. No nasal discharge, no septal abnormalities noted. Tympanic membranes are normal and external auditory canals are clear. Oropharynx with no redness, swelling, or masses, exudates, or evidence of obstruction, uvula midline. Mucous membranes moist. Neck: Trachea midline, no thyromegaly or masses palpated, and no cervical lymphadenopathy. Supple, full range of motion without nuchal rigidity, or vertebral point tenderness. No Meningismus. Chest/axilla: Normal chest wall appearance and motion. Nontender with no deformity. No lesions are appreciated. Cardiovascular: Regular rate and rhythm with a normal S1 and S2. No gallops, murmurs, or rubs. Normal PMI, no JVD. No pulse deficits. Respiratory: Lungs have equal breath sounds bilaterally, clear to auscultation and percussion. No rales, rhonchi or wheezes noted. No increased work of breathing, no retractions or nasal flaring. Abdomen/GI: Soft, non-tender, with normal bowel sounds. No distension or tympany. No guarding or rebound. No evidence of tenderness throughout. Back: No spinal tenderness. No costovertebral tenderness. Full range of motion. Skin: Warm, dry with normal turgor. Normal color with no rashes, no lesions, and no evidence of cellulitis. MS/ Extremity: Pulses equal, no cyanosis. Neurovascular intact. Full, normal range of motion. Neuro: Awake and alert, GCS 15, oriented to person, place, time, and situation. Cranial nerves II-XII grossly intact. Motor strength 5/5 in all extremities. Sensory grossly intact. Cerebellar exam normal. Normal gait. Psych: Awake, alert, with orientation to person, place and time. Behavior, mood, and affect are within normal limits. 14:14 : CVA tenderness, is absent, Male external genitalia: normal, Bladder: is normal, Sexual behavior: the patient is not sexually active, Vital Signs: 13:16 BP 156 / 94; Pulse 88; Resp 18; Temp 97.8; Pulse Ox 96% ; Weight 66.68 kg (R); Height 5 db ft. 7 in. ; Pain 0/10; 14:32 BP 150 / 83; Pulse 80; Resp 18; Pulse Ox 98% on R/A; ld1 13:16 Body Mass Index 23.02 (66.68 kg, 170.18 cm) db 13:16 Pain Scale: Adult db MDM: 13:37 Patient medically screened. snw 14:18 Differential diagnosis: nonspecific abdominal pain, UTI, urinary retention, De Los Santos jl catheter problem, prostatitis, urethritis. Data reviewed: vital signs, nurses notes, lab test result(s), radiologic studies, CT scan. Consideration of Admission/Observation Escalation of care including admission/observation considered. I considered the following discharge prescriptions or medication management in the emergency department Medications were administered in the Emergency Department. See MAR. Independent interpretation of the following test(s) in the Emergency Department CT Scan: My interpretation is ct stone. Test considered but Not performed: EKG: no ekg. Historians other than the Patient: EMS: ems , well informed. Care significantly affected by the following chronic conditions: Hypertension, cva. Counseling: I had a detailed discussion with the patient and/or guardian regarding the historical points, exam findings, and any diagnostic results supporting the discharge/admit diagnosis, lab results, radiology results, the need for outpatient follow up, for definitive care, a family practitioner. 04/06 13:43 Order name: CBC with Diff; Complete Time: 14:38 [facility] 04/06 13:43 Order name: PT-INR; Complete Time: 14:38 [facility] 04/06 13:43 Order name: Comprehensive Metabolic Panel [facility] 04/06 13:43 Order name: CT Stone Protocol; Complete Time: 14:38 [facility] 04/06 13:43 Order name: De Los Santos Leg Bag; Complete Time: 14:30 [facility] 04/06 13:43 Order name: De Los Santos; Complete Time: 14:30 jl Administered Medications: 14:30 Drug: NS 0.9% IV 500 ml IV at bolus once Route: IV; Rate: bolus; Site: right forearm; ld1 15:00 Follow up: Response: No adverse reaction; IV Status: Completed infusion db 14:30 Drug: Rocephin IV 1 grams IV at per protocol once; Given slow IV push per pharmacy ld1 instructions Route: IV; Rate: per protocol; Site: right forearm; 15:00 Follow up: IV Status: Completed infusion db 16:59 Drug: Ciprofloxacin PO 500 mg PO once Route: PO; ld1 16:59 Drug: Flomax PO 0.4 mg PO once Route: PO; ld1 Disposition Summary: 04/06/23 14:46 Discharge Ordered Notes: Location: Home jl Problem: new jl Symptoms: have improved jl Condition: Stable jl Diagnosis - Hematuria, unspecified jl - Other chronic cystitis jl - Mechanical complication of urinary (indwelling) catheter jl Followup: jl - With: Private Physician - When: 2 - 3 days - Reason: Recheck today's complaints, Continuance of care, Re-evaluation by your physician Followup: jl - With: Joshua Morrison MD - When: 2 - 3 days - Reason: Recheck today's complaints, Continuance of care, Re-evaluation by your physician Discharge Instructions: - Discharge Summary Sheet jl - Indwelling Urinary Catheter Care, Adult jl - Hematuria, Adult jl - Acute Urinary Retention, Male jl - Urinary Tract Infection, Adult jl - Urinary Tract Infection, Adult, [id number] jl - Acute Urinary Retention, Male, [id number] jl - Indwelling Urinary Catheter Care, Adult, [id number] [facility] Forms: - Medication Reconciliation Form [facility] - Thank You Letter [facility] - Antibiotic Education [facility] - Prescription Opioid Use [facility] - Patient Portal Instructions [facility] - Leadership Thank You Letter [facility] Prescriptions: - Flomax 0.4 mg Oral capsule - take 1 capsule ORAL route every 24 hours; 30 capsule; Refills: 0, Product [facility] Selection Permitted - Cipro 250 mg Oral tablet - take 1 tablet ORAL route every 12 hours; 20 tablet; Refills: 0, Product [facility] Selection Permitted - Bactrim DS 800-160 mg Oral tablet - take 1 tablet ORAL route every 12 hours for 5 days; 10 tablet; Refills: 0, [facility] Product Selection Permitted Signatures: Dispatcher [employer] Colton Thao MD MD cha Waters, Shelly, FNP-C FNP-Heather Diallo RN RN ld1 Campbell, Evelyn, RN RN db
--- NOTE | 2023-04-06 14:47 | ER ---
Nurse's Notes [facility] Name: Lamberto Simpson Age: 72 yrs Sex: Male : 1950 Arrival Date: 04/06/2023 Time: 13:20 Bed 6 Private MD: Diagnosis: Hematuria, unspecified;Other chronic cystitis;Mechanical complication of urinary (indwelling) catheter Presentation: 04/06 13:16 Chief complaint: EMS states: PATIENT CAME IN AFTER HOME HEALTH NURSE REMOVED RAMOS db CATHETER AT 12PM TODAY. NOTED BLOOD IN URINARY BAG. CALLED 911 FOR PATIENT AND FOR RAMOS REPLACEMENT. NO BLOOD NOTED NOW. PT IN NAD. HX OF LEFT SIDED WEAKNESS FROM PREVIOUS STROKE. Coronavirus screen: Client denies travel out of the [place] in the last 14 days. At this time, the client does not indicate any symptoms associated with coronavirus-19. Ebola Screen: Patient negative for fever greater than or equal to 101.5 degrees Fahrenheit, and additional compatible Ebola Virus Disease symptoms Patient denies exposure to infectious person. Patient denies travel to an Ebola-affected area in the 21 days before illness onset. No symptoms or risks identified at this time. Initial Sepsis Screen: Does the patient meet any 2 criteria? No. Patient's initial sepsis screen is negative. Does the patient have a suspected source of infection? No. Patient's initial sepsis screen is negative. Risk Assessment: Do you want to hurt yourself or someone else? Patient reports no desire to harm self or others. Onset of symptoms was April 06, 2023. 13:16 Method Of Arrival: EMS: [facility] db 13:16 Acuity: GRIFFIN 3 db Triage Assessment: 13:35 General: Appears in no apparent distress. comfortable, Behavior is calm, cooperative. db Pain: Denies pain. Neuro: Level of Consciousness is awake, alert, obeys commands, Oriented to person, place, time, situation. Historical: - Allergies: 14:31 No Known Allergies; ld1 - Home Meds: 13:35 Baclofen Oral [Active]; db - PMHx: 13:35 CVA; Hypertension; db - Immunization history:: Adult Immunizations unknown. - Social history:: Smoking status: Patient denies any tobacco usage or history of. - Family history:: not pertinent. Screenin:32 [facility] ED Fall Risk Assessment (Adult) History of falling in the last 3 months, ld1 including since admission No falls in past 3 months (0 pts). Abuse screen: Denies threats or abuse. Denies injuries from another. Nutritional screening: No deficits noted. Tuberculosis screening: No symptoms or risk factors identified. Assessment: 13:37 Reassessment: SEE TRIAGE FOR INITIAL ASSESSMENT. PT WITH LEFT SIDED WEAKNESS. IN NAD. db 14:32 Reassessment: Pt reports coming to ER due to home health putting in ramos that hurt. ld1 Ramos was D/C prior to arrival to ER. Inserted 16fr ramos - pt tolerated well. Denies pain. Returned blood tinged urine. General: Appears in no apparent distress. uncomfortable, Behavior is calm, cooperative, appropriate for age. Pain: Denies pain. Neuro: Level of Consciousness is awake, alert, obeys commands, Oriented to person, place, time, situation. Cardiovascular: Capillary refill < 3 seconds Patient's skin is warm and dry. Rhythm is sinus rhythm. Respiratory: Airway is patent Respiratory effort is even, unlabored. GI: Abdomen is flat, non-distended. : Urine is blood tinged, Reports pain in suprapubic area. EENT: No signs and/or symptoms were reported regarding the EENT system. Derm: No signs and/or symptoms reported regarding the dermatologic system. Musculoskeletal: No signs and/or symptoms reported regarding the musculoskeletal system. Vital Signs: 13:16 BP 156 / 94; Pulse 88; Resp 18; Temp 97.8; Pulse Ox 96% ; Weight 66.68 kg (R); Height 5 db ft. 7 in. ; Pain 0/10; 14:32 BP 150 / 83; Pulse 80; Resp 18; Pulse Ox 98% on R/A; ld1 13:16 Body Mass Index 23.02 (66.68 kg, 170.18 cm) db 13:16 Pain Scale: Adult db ED Course: 13:22 Patient arrived in ED. ld1 13:26 Evelyn Campbell, RN is Primary Nurse. db 13:35 Triage completed. db 13:35 Arm band placed on Patient placed in an exam room. db 13:36 Zeny Danielson FNP-C [facility]. snw 13:36 Bola Jones DO is Attending Physician. snw 13:39 Attending Physician role handed off by Bola Jones DO jl 13:39 Colton Long MD is Attending Physician. jl 13:55 CT Stone Protocol In Process Unspecified. EDMS 14:09 Comprehensive Metabolic Panel Sent. ds4 14:09 PT-INR Sent. ds4 14:09 CBC with Diff Sent. ds4 14:31 No provider procedures requiring assistance completed. Ramos cath inserted, using ld1 sterile technique, 16 Fr., by il, balloon inflated, to gravity drainage, clamped. returned clear yellow urine. Patient tolerated well. Maintain EMS IV. Dressing intact. Good blood return noted. Site clean \T\ dry. Gauge \T\ site: 22g LFA. 14:32 Patient has correct armband on for positive identification. Placed in gown. Bed in low ld1 position. Call light in reach. Side rails up X2. ekg monitor tech on. Pulse ox on. NIBP on. Door closed. Noise minimized. Warm blanket given. 14:45 Joshua Morrison MD is Referral Physician. jl 15:03 IV discontinued, intact, bleeding controlled, No redness/swelling at site. ld1 Administered Medications: 14:30 Drug: NS 0.9% IV 500 ml IV at bolus once Route: IV; Rate: bolus; Site: right forearm; ld1 15:00 Follow up: Response: No adverse reaction; IV Status: Completed infusion db 14:30 Drug: Rocephin IV 1 grams IV at per protocol once; Given slow IV push per pharmacy ld1 instructions Route: IV; Rate: per protocol; Site: right forearm; 15:00 Follow up: IV Status: Completed infusion db 16:59 Drug: Ciprofloxacin PO 500 mg PO once Route: PO; ld1 16:59 Drug: Flomax PO 0.4 mg PO once Route: PO; ld1 Medication: 15:04 VIS not applicable for this client. ld1 Outcome: 14:46 Discharge ordered by . jl 15:02 Discharged to home via wheelchair, with family, ld1 15:02 Condition: stable 15:02 Discharge instructions given to patient, family, Instructed on discharge instructions, follow up and referral plans. medication usage, Demonstrated understanding of instructions, follow-up care, medications, Prescriptions given X 2, 15:04 Patient left the ED. ld1 Signatures: Dispatcher [employer] EDAL Colton Long MD MD cha Waters, Shelly, ENVIRONMENTAL SERVICES WORKER-C ENVIRONMENTAL SERVICES WORKER-Csnw Jerry Elena ds4 Heather Jones, RN RN ld1 Evelyn Campbell, RN RN db
[2023-04-06] MEDS ORDERED: TAMSULOSIN 0.4 MG SR CAP ONE (15:01)
[2023-04-06] MEDS ORDERED: CIPROFLOXACIN HCL 500 MG TAB ONE (15:01)
[2023-04-06 15:09] VITALS: BP 150/83; O2SAT 98
== END 2023-04-06 15:04 | disposition home or self-care (01) ==
LOC: ER 13:20
DX: N30.20 Other chronic cystitis without hematuria (principal); T83.098A Other mechanical complication of other urinary catheter, initial encounter; I10 Essential (primary) hypertension; Z86.73 Personal history of transient ischemic attack (TIA), and cerebral infarction without residual deficits
CPT/HCPCS: 85025; 36415; 85610; 80053; 76377; 74176; J7040; J0696; 51702; 96365; 99285

== ENCOUNTER 2024-02-03 15:05 | Inpatient (IN) | payer OTHER ==
[2024-02-03] MEDS ORDERED: NA CHLORIDE 0.9% 1,000 ML ONE ×2 (15:59→17:18)
[2024-02-03 16:06] LABS: Absolute Lymphocytes (CBC) 0.2 K/uL (0.7-4.9); Absolute Monocytes 0.7 K/uL (0.1-1.3); Hematocrit 39.7 % (39.6-49.0); Lymphocytes % 0.8 % (15.3-44.8); MCH 30.7 pg (27.0-35.0); MCHC 32.8 g/dL (32.0-36.0); MCV 93.7 fL (80-100); Neutrophils % 95.2 % (41.7-73.7); Platelets 259 thou/uL (152-406); RBC Red Blood Cell Count 4.24 M/uL (4.33-5.43); Red Cell Distribution Width 13.4 % (12.1-15.2)
[2024-02-03 16:12] LABS: Albumin 3.4 g/dL (3.4-5.0); Anion Gap 8.5 mEq/L (5.0-15.0); Bilirubin Total 1.1 mg/dL (0.2-1.0); Globulin 3.4 g/dL (2.3-3.5); Potassium 3.5 mEq/L (3.5-5.1); Protein, Total 6.8 g/dL (6.4-8.2)
[2024-02-03 16:21] LABS: PT Prothrombin Time 19.9 SECONDS (9.4-12.5); PTT, Activated Partial Thromb 36.8 SECONDS (24.3-36.9); Protime INR 1.81
[2024-02-03 16:26] LABS: SARS-CoV-2 Antigen CONTROL BLUE LINE VIS/BG OK; SARS-CoV-2 Antigen Rapid Res Negative (Negative)
[2024-02-03 16:54] LABS: Blood Morphology Comment NOT SEEN (NOT SEEN); Platelet Estimate ADEQ; White Blood Cell Scan OK (OK)
--- NOTE | 2024-02-03 16:55 | RAD REPORT ---
EXAM DESCRIPTION: RADChest Single View02/03/2024 4:00 pm CLINICAL HISTORY: CHEST PAIN COMPARISON: Chest Single View dated 03/08/2023; CHEST SINGLE VIEW dated 09/12/2014 TECHNIQUE: Portable AP view of the chest. FINDINGS: Central interstitial prominence and reticular opacities, stable. The lungs are otherwise c lear. No pneumothorax or effusion. The cardiomediastinal contours are unremarkable. IMPRESSION: Stable findings as above which may represent central congestion/edema or multifocal airs pace disease.
[2024-02-03] MEDS ORDERED: CEFTRIAXONE 1000 MG/VIAL ONE (17:18)
[2024-02-03 17:29] LABS: Specific Gravity 1.013 (1.005-1.030); Sqamous Epithelial None Seen /HPF (None Seen); Urine Bacteria <20 /HPF (<20); Urine Bilirubin NEGATIVE (Negative); Urine Blood 3+ (Negative); Urine Clarity Extremely Turbid (Clear); Urine Color Light-Orange (Yellow); Urine Culture Reflex Order REFLEXED; Urine Glucose NEGATIVE (Negative); Urine Ketones NEGATIVE (Negative); Urine Microscopic Reflex YN ORDER UMIC; Urine Mucus Slight /HPF (None Seen); Urine Nitrite 2+ (Negative); Urine Protein 2+ (Negative); Urine RBC >50 /HPF (None Seen); Urine Urobilinogen Normal (Normal); Urine WBC >50 /HPF (<5); Urine WBC Clump Many /HPF (None Seen); Urine pH 7.5 (5.0-7.0)
--- NOTE | 2024-02-03 17:34 | EDPHYS ---
Physician Documentation [facility] Name: Lamberto Simpson Age: 73 yrs Sex: Male : 1950 Arrival Date: 02/03/2024 Time: 15:05 Bed 14 Private MD: ED Physician Aj Almazan HPI: 02/02 15:44 This 73 yrs old Male presents to ER via EMS with complaints of Lethargy. sb4 15:44 patient with history of CVA, non verbal with indwelling zhang catheter presents via EMS sb4 with lethargy. states that his zhang catheter clogged yesterday so home health replaced it today. afterwards, she noticed there was a lot of sediment in the bag and he was difficult to arouse. EMS recorded a temp of 101.7. she was unaware of the fever. patient is unable to provide any history or complaint at this time. Historical: - Allergies: 15:17 No Known Allergies; nj1 - PMHx: 15:17 CVA; Hypertension; BPH (Unknown); nj1 - Immunization history:: Client reports receiving the 2nd dose of the Covid vaccine. - Infectious Disease History:: Denies. - Social history:: Smoking status: Patient denies any tobacco usage or history of. ROS: 15:44 Unable to obtain ROS due to obtunded state, sb4 Exam: 15:44 Head/Face: Normocephalic, atraumatic. Eyes: Extra-ocular motions intact. Periorbital sb4 areas with no swelling, redness, or edema. Cardiovascular: Regular rate and rhythm with a normal S1 and S2. Respiratory: Lungs have equal breath sounds bilaterally, clear to auscultation and percussion. No rales, rhonchi or wheezes noted. No increased work of breathing, no retractions or nasal flaring. Abdomen/GI: Soft, non-tender, no distension. Skin: Warm, dry with normal turgor. Normal color with no rashes, no lesions, and no evidence of cellulitis. 15:44 Constitutional: The patient appears frail, lethargic, 15:44 : a zhang is noted, urine is cloudy, with sediment, Vital Signs: 14:57 BP 120 / 64; Pulse 88; Resp 18; Temp 101.7(A); Pulse Ox 97% on R/A; Weight 73.03 kg nj1 (M); Height 5 ft. 9 in. ; 15:48 BP 120 / 64; Pulse 90; Resp 14; Temp 101.7(A); Pulse Ox 97% on R/A; kj2 16:25 BP 101 / 60; Pulse 79; Resp 16; Temp 99.9(A); Pulse Ox 96% ; kj2 17:48 BP 104 / 60; Pulse 74; Resp 18; Pulse Ox 97% on R/A; kj2 19:28 BP 99 / 56; Pulse 65; Resp 16; Pulse Ox 99% on R/A; kj2 14:57 Body Mass Index 23.78 (73.03 kg, 175.26 cm) nj1 MDM: 15:13 Patient medically screened. sb4 17:33 Data reviewed: vital signs, nurses notes, lab test result(s), EKG, radiologic studies, sb4 I have discussed the patient's presentation/case with the attending Emergency Department Physician; and as a result, I will admit patient. Consideration of Admission/Observation Patient was admitted/placed on observation. Counseling: I had a detailed discussion with the patient and/or guardian regarding the historical points, exam findings, and any diagnostic results supporting the discharge/admit diagnosis, lab results, radiology results, the need for further work-up and treatment in the hospital. 02/02 15:21 Order name: Blood Culture Adult (2) [facility] 02/02 15:21 Order name: CBC with Diff; Complete Time: 16:57 [facility] 02/02 15:21 Order name: CMP; Complete Time: 16:13 [facility] 02/02 15:21 Order name: Lactate w/ 2H reflex if indic.; Complete Time: 16:11 [facility] 02/02 15:21 Order name: Protime (+inr); Complete Time: 16:22 [facility] 02/02 15:21 Order name: Ptt, Activated; Complete Time: 16:22 [facility] 02/02 15:21 Order name: Urinalysis w/ reflexes; Complete Time: 17:32 [facility] 02/02 15:23 Order name: SARS RAPID; Complete Time: 16:35 [facility] 02/02 15:23 Order name: Flu; Complete Time: 16:47 [facility] 02/02 16:17 Order name: CBC Smear Scan; Complete Time: 16:57 EDMS 02/02 17:35 Order name: Urine Culture EDMS 02/02 17:59 Order name: Lactate w/ 2H reflex if indic.; Complete Time: 19:15 sb4 02/02 18:09 Order name: Ghost Lactate-NO COLLECT Timer; Complete Time: 18:10 EDMS 02/02 18:37 Order name: CBC with Automated Diff EDMS 02/02 18:37 Order name: CBC with Automated Diff EDMS 02/02 18:37 Order name: Comprehensive Metabolic Panel EDMS 02/02 18:37 Order name: Comprehensive Metabolic Panel EDMS 02/02 18:39 Order name: Blood Culture EDMS 02/02 15:21 Order name: Chest Single View XRAY; Complete Time: 16:57 sb4 02/02 15:21 Order name: Cardiac monitoring; Complete Time: 15:47 sb4 02/02 15:21 Order name: IV Saline Lock - Large Bore; Complete Time: 15:47 sb4 02/02 15:21 Order name: Labs collected and sent; Complete Time: 15:47 sb4 02/02 15:21 Order name: O2 Per Protocol; Complete Time: 15:47 sb4 02/02 15:21 Order name: O2 Sat Monitoring; Complete Time: 15:47 sb4 02/02 15:21 Order name: Vital Signs; Complete Time: 15:48 sb4 02/02 16:25 Order name: Misc. Order: repeat lactate at 1745; Complete Time: 18:32 sb4 EC:48 Rate is 86 beats/min. Rhythm is regular, Sinus Rhythm with Occasional PVCs. [place] interval sb4 is normal at 182 msec. QRS interval is normal at 100 msec. QT interval is normal at 358 msec. No Q waves. T waves are Normal. No ST changes noted. Clinical impression: No evidence of ischemia. Interpreted by me. Reviewed by me. Administered Medications: 16:06 Drug: NS 0.9% IV 1000 ml IV at 1 bolus Per protocol; 1000 mL bolus Route: IV; Rate: 1 kj2 bolus; Site: right forearm; 18:30 Follow up: IV Status: Completed infusion kj2 17:48 Drug: Rocephin IV 1 grams IV at calculated rate once; Given slow IV push per pharmacy kj2 instructions Route: IV; Rate: calculated rate; Site: right antecubital; 18:30 Follow up: Response: No adverse reaction; IV Status: Completed infusion kj2 17:48 Drug: NS 0.9% IV 1000 ml IV at 75 ml/hr continuous Route: IV; Rate: 75 ml/hr; Site: kj2 right antecubital; Disposition: 17:33 Chart complete. sb4 Disposition Summary: 02/03/24 17:33 Hospitalization Ordered Notes: Hospitalization Status: Inpatient Admission sb4 Provider: Hua Marmolejo sb4 [facility] sb4 Condition: Fair sb4 Problem: new sb4 Symptoms: are unchanged sb4 Bed/Room Type: Standard sb4 Room Assignment: (02/03/24 19:03) hb Diagnosis - UTI/ Urinary tract infection, site not specified sb4 - Severe sepsis without septic shock sb4 - Altered mental status, unspecified sb4 Forms: - Medication Reconciliation Form sb4 - SBAR form sb4 - Leadership Thank You Letter sb4 Addendum: 02/05/2024 11:44 I was immediately available for consultation during this patient's visit. I did not e c2 personally see the patient or discuss the patient with the CLIVE. . Signatures: Dispatcher [employer] EDMS Seda Guerrier RN RN Mariangel Grimaldo PA-C PATodd sb4 Arlene Saeed RN RN nj1 Aj Almazan MD MD ec2 Geno Hardin RN RN kj2 Corrections: (The following items were deleted from the chart) 02/02 15:22 15:21 BLOOD CULTURE*+BA.LAB.BRZ ordered. EDMS EDMS 15:22 15:21 CBC+H.LAB.BRZ ordered. EDMS EDMS 15:22 15:21 COMPREHENSIVE METABOLIC PANEL+C.LAB.BRZ ordered. EDMS EDMS 15:22 15:21 LACTATE+C.LAB.BRZ ordered. EDMS EDMS 15:22 15:21 PROTIME (+INR)+COAG.LAB.BRZ ordered. EDMS EDMS 15:22 15:21 PTT, ACTIVATED+COAG.LAB.BRZ ordered. EDMS EDMS 15:22 15:21 Urinalysis+U.LAB.BRZ ordered. EDMS EDMS 15:22 15:22 Chest Single View+RAD.RAD.BRZ ordered. EDMS EDMS 15:45 15:44 patient with history of CVA, non verbal with indwelling zhang catheter presents sb4 via EMS with lethargy. states that his zhang catheter clogged yesterday so home health replaced it today. afterwards, she noticed there was a lot of sediment in the bag and he was difficult to arouse. EMS recorded a temp of 101.7. she was unaware of the fever. sb4 19:03 17:33 sb4 hb
--- NOTE | 2024-02-03 17:34 | ER ---
Nurse's Notes [facility] Name: Lamberto Simpson Age: 73 yrs Sex: Male : 1950 Arrival Date: 02/03/2024 Time: 15:05 Bed 14 Private MD: Diagnosis: UTI/ Urinary tract infection, site not specified;Severe sepsis without septic shock;Altered mental status, unspecified Presentation: 02/02 14:57 Chief complaint: EMS states: Not as active as normal, more sleepy. Has urinary catheter nj1 in place. Replaced today by home health. Family states he did not have any urinary output yesterday, has output today but urine looks bad. Pt non verbal. 14:57 Coronavirus screen: Vaccine status: Patient reports receiving the 2nd dose of the covid nj1 vaccine. Ebola Screen: Patient denies travel to an Ebola-affected area in the 21 days before illness onset. Initial Sepsis Screen: Does the patient meet any 2 criteria? Temp <36.0*C (96.8*F)) or > 38.3*C (100.9*F). No. Patient's initial sepsis screen is negative. Does the patient have a suspected source of infection? No. Patient's initial sepsis screen is negative. Risk Assessment: Do you want to hurt yourself or someone else? Patient reports no desire to harm self or others. Onset of symptoms was February 03, 2024. 14:57 Method Of Arrival: EMS: [place] [id number] 14:57 Acuity: GRIFFIN 3 [facility] 14:57 Care prior to arrival: Medication(s) given: Tylenol, 1000 mg, IV initiated. 22 GA, in nj1 the right hand, Glucose check: 117. Historical: - Allergies: 15:17 No Known Allergies; nj1 - PMHx: 15:17 CVA; Hypertension; BPH (Unknown); nj1 - Immunization history:: Client reports receiving the 2nd dose of the Covid vaccine. - Infectious Disease History:: Denies. - Social history:: Smoking status: Patient denies any tobacco usage or history of. Screenin:53 [facility] ED Fall Risk Assessment (Adult) History of falling in the last 3 months, kj2 including since admission No falls in past 3 months (0 pts) Confusion or Disorientation Yes (5 pts) Intoxicated or Sedated No (0 pts) Impaired Gait No (0 pts) Mobility Assist Device Used No (0 pt) Altered Elimination Yes (1 pt) Score/Fall Risk Level 0 - 2 = Low Risk. Abuse screen: Denies threats or abuse. Denies injuries from another. Nutritional screening: No deficits noted. Tuberculosis screening: No symptoms or risk factors identified. Assessment: 15:50 General: Appears in no apparent distress. Behavior is calm. Pain: Denies pain. Neuro: kj2 Level of Consciousness is awake, Oriented to person. Cardiovascular: Patient's skin is warm and dry. Respiratory: Airway is patent Respiratory effort is unlabored. GI: No deficits noted. : De Los Santos in place. 17:49 Reassessment: Patient appears in no apparent distress at this time. Patient and/or kj2 family updated on plan of care and expected duration. Pain level reassessed. Patient is alert, oriented x 3, equal unlabored respirations, skin warm/dry/pink. Vital Signs: 14:57 BP 120 / 64; Pulse 88; Resp 18; Temp 101.7(A); Pulse Ox 97% on R/A; Weight 73.03 kg nj1 (M); Height 5 ft. 9 in. ; 15:48 BP 120 / 64; Pulse 90; Resp 14; Temp 101.7(A); Pulse Ox 97% on R/A; kj2 16:25 BP 101 / 60; Pulse 79; Resp 16; Temp 99.9(A); Pulse Ox 96% ; kj2 17:48 BP 104 / 60; Pulse 74; Resp 18; Pulse Ox 97% on R/A; kj2 19:28 BP 99 / 56; Pulse 65; Resp 16; Pulse Ox 99% on R/A; kj2 14:57 Body Mass Index 23.78 (73.03 kg, 175.26 cm) nj1 ED Course: 15:00 Maintain EMS IV. Dressing intact. Site clean \T\ dry. Gauge \T\ site: 22 R Hand. IV with nj 1 fluids not infusing freely, without good blood return. 15:11 Patient arrived in ED. bc6 15:13 Mariangel Belle [facility]C [facility]. sb4 15:13 Aj Almazan MD is Attending Physician. sb4 15:16 Triage completed. nj1 15:18 Geno Hardin, RN is Primary Nurse. kj2 15:19 Arm band placed on. nj1 15:49 No provider procedures requiring assistance completed. Inserted saline lock: 20 gauge kj2 in right forearm, using aseptic technique. Blood collected. Flushed with 10 mL NS. 15:50 IV discontinued, intact, bleeding controlled, No redness/swelling at site. Pressure nj1 dressing applied. 15:54 Patient has correct armband on for positive identification. Bed in low position. Call kj2 light in reach. Side rails up X 1. Adult w/ patient. Provided Education on: call light, fall precautions. 16:02 Chest Single View XRAY In Process Unspecified. EDMS 17:33 Yury Marmolejo MD is Hospitalizing Provider. sb4 17:33 Hospitalizing Provider role handed off by Yury Marmolejo MD sb4 17:33 Hua Marmolejo MD is Hospitalizing Provider. sb4 18:29 Lactate w/ 2H reflex if indic. Sent. kj2 Administered Medications: 16:06 Drug: NS 0.9% IV 1000 ml IV at 1 bolus Per protocol; 1000 mL bolus Route: IV; Rate: 1 kj2 bolus; Site: right forearm; 18:30 Follow up: IV Status: Completed infusion kj2 17:48 Drug: Rocephin IV 1 grams IV at calculated rate once; Given slow IV push per pharmacy kj2 instructions Route: IV; Rate: calculated rate; Site: right antecubital; 18:30 Follow up: Response: No adverse reaction; IV Status: Completed infusion kj2 17:48 Drug: NS 0.9% IV 1000 ml IV at 75 ml/hr continuous Route: IV; Rate: 75 ml/hr; Site: kj2 right antecubital; Medication: 15:53 VIS not applicable for this client. kj2 Outcome: 17:33 Decision to Hospitalize by Provider. sb4 20:32 Patient left the ED. kj2 Signatures: Dispatcher [employer] EDMS Mariangel Belle PA-C PA-C sb4 Natacha Bhakta6 Arlene Saeed RN RN nj1 Geno Hardin, RN RN kj2 Corrections: (The following items were deleted from the chart) 16:29 16:25 BP 101 / 60; Pulse 79bpm; Resp 16bpm; Pulse Ox 96%; kj2 kj2 16:42 16:15 NS 0.9% IV 1000 ml IV at 75 ml/hr in right forearm kj2 kj2
--- NOTE | 2024-02-03 18:42 | P.HP ---
Certification for Inpatient Patient admitted to: Inpatient With expected LOS: >2 Midnights Practitioner: I am a practitioner with admitting privileges, knowledge of patient current condition, hospital course, and medical plan of care. Services: Services provided to patient in accordance with Admission requirements found in Title 42 Section 412.3 of the Code of Federal Regulations Patient History Date of Service: 02/03/24 Reason for admission: Urosepsis weakness History of Present Illness: Patient is 73 years of age admitted to the hospital patient is nonverbal is complaining of feeling weak not eating history obtained from his apparently he has a [place] catheter that was changed and pus was found in the catheter patient is not even walking admitted to the hospital was diagnosed with urosepsis he has had urosepsis a while ago Allergies No Known Drug Allergies Allergy (Verified 01/25/23 18:30) Unknown Home Medications: Levetiracetam 100 mg SUBQ BID 05/27/15 cloNIDine HCL [Catapres*] 0.1 mg PO TID 05/27/15 Vitamin D [Drisdol*] 50,000 unit PO Q7D #4 cap 01/27/23 Quetiapine [Seroquel*] 25 mg PO BID #0 tab 01/28/23 Cefdinir [Cefdinir*] 300 mg PO BID #30 cap 03/11/23 - Past Medical/Surgical History Diabetic: No -: HYPERTENSION -: HX CVA -: expressive aphaisa -: [place] -: Chronic anticoagulation -: CKD (Dr. Blanco) -: SKIN GRAFTS FROM BLE -: RECONSTRUCTION OF ARMS/HANDS -: CERVICAL FUSION -: Peg placement -: Brain surgery for nocardia infection - Social History Alcohol use: No CD- Drugs: Yes Caffeine use: No Review of Systems is unable to be obtained Physical Examination - Vital Signs Temperature: 101.7 F Blood Pressure: 100/57 Pulse: 97 Respirations: 14 Pulse Ox (%): 99 - Physical Exam General: Alert, Unresponsive Respiratory: Clear to auscultation bilaterally Cardiovascular: No edema, Regular rate/rhythm Gastrointestinal: Normal bowel sounds, Soft and benign Musculoskeletal: No clubbing, No swelling Neurological: Other (Patient has left-sided facial asymmetry with weakness of the left arm more than the left leg he is able to lift up his legs) - Studies Laboratory Data (last 24 hrs) 02/03/24 02/03/2402/02/24 15:30 15:30 15:30 WBC 17.90 H Hgb 13.0 L Hct 39.7 Plt Count 259 PT 19.9 H INR 1.81 APTT 36.8 Sodium 135 L Potassium 3.5 BUN 29 H Creatinine 1.56 H Glucose 95 Total Bilirubin 1.1 H AST 15 ALT 15 L Alkaline Phosphatase 99 Microbiology Data (last 24 hrs): 02/03/24 15:55 Nasopharnyx Influenza Type A Antigen Screen - Final 02/03/24 15:55 Nasopharnyx Influenza Type B Antigen Screen - Final Assessment and Plan - Problems (Diagnosis) (1) Cystitis Current Visit: Yes Status: Acute Plan: Patient is 73 years of age he is debilitated from his stroke and has urinary catheter admitted with an infection in his urinalysis shows gross infection patient's white count is elevated to 17.9 renal function is also worsened all la bs reviewed chest x-ray shows stable finding of possible multifocal disease patient saturations satisfactory admit to the hospital IV fluids IV meropenem patient has expressive dysphagia from his stroke - Advance Directives Does patient have a Living Will: No Does patient have a Durable POA for Healthcare: No
[2024-02-03] MEDS ORDERED: LEVETIRACETAM 500 MG/5 ML SUBQ SCH (21:00)
[2024-02-03] MEDS: QUETIAPINE 25 MG TAB PO SCH (21:20)
[2024-02-03 21:44] VITALS: BMI 25.0
[2024-02-04] MEDS: NA CHLORIDE 0.9% 1,000 ML IV SCH (07:36)
[2024-02-04 08:05] LABS: Absolute Lymphocytes (CBC) 0.6 K/uL (0.7-4.9); Absolute Monocytes 0.9 K/uL (0.1-1.3); Absolute Neutrophil 12.5 K/uL (1.8-8.0); Basophils % 0.3 % (0-1.3); Hematocrit 36.4 % (39.6-49.0); Hemoglobin 12.3 g/dL (13.6-17.9); Lymphocytes % 4.5 % (15.3-44.8); MCH 31.4 pg (27.0-35.0); MCHC 33.8 g/dL (32.0-36.0); MCV 92.9 fL (80-100); MPV 8.6 fL (7.6-11.3); Monocytes % 6.1 % (3.3-12.3); Neutrophils % 89.1 % (41.7-73.7); Platelets 200 thou/uL (152-406); RBC Red Blood Cell Count 3.92 M/uL (4.33-5.43); Red Cell Distribution Width 13.8 % (12.1-15.2)
[2024-02-04 08:14] LABS: AST/SGOT 17 U/L (15-37); Albumin 2.7 g/dL (3.4-5.0); Albumin/Globulin Ratio 0.9 (1.1-1.8); Alkaline Phosphatase 85 U/L (45-117); Anion Gap 7.7 mEq/L (5.0-15.0); BUN Blood Urea Nitrogen 26 mg/dL (7-18); Bicarbonate 28 mEq/L (21-32); Bilirubin Total 0.6 mg/dL (0.2-1.0); Glomerular Filtration Rate 68 ml/min (=/>90); Glucose Level 97 mg/dL (74-106); Potassium 3.7 mEq/L (3.5-5.1); Protein, Total 5.7 g/dL (6.4-8.2); Sodium Level 140 mEq/L (136-145)
[2024-02-04 08:15] LABS: ALT/SGPT < 14 U/L (16-61)
[2024-02-04] MEDS: APIXABAN 5 MG TABLET PO SCH (09:19)
[2024-02-04] MEDS: GABAPENTIN 300 MG CAP PO SCH (09:19)
[2024-02-04] MEDS: TAMSULOSIN 0.4 MG SR CAP PO SCH (09:19)
--- NOTE | 2024-02-04 10:35 | P.PN ---
Subjective Date of Service: 02/05/24 Chief Complaint: Urosepsis weakness Pt is resting comfortably in bed. He was mumbling at bedside. Pt is getting iv merrem for cystitis. No other complaints. Review of Systems General: Unremarkable Eyes: Unremarkable ENT: Unremarkable Respiratory: Unremarkable Cardiovascular: Unremarkable Gastrointestinal: Unremarkable Genitourinary: Dysuria Musculoskeletal: Unremarkable Integumentary: Unremarkable Neurological: Unremarkable Lymphatics: Unremarkable Physical Examination - Vital Signs Temperature: 98.5 F Blood Pressure: 106/57 Pulse: 65 Respirations: 14 Pulse Ox (%): 96 - Physical Exam General: Alert, In no apparent distress, Oriented x3 HEENT: Atraumatic, Normocephalic, PERRLA Neck: Supple, 2+ carotid pulse no bruit, JVD not distended Respiratory: Clear to auscultation bilaterally, Normal air movement Cardiovascular: No edema, Normal pulses, Regular rate/rhythm Capillary refill: <2 Seconds Gastrointestinal: Normal bowel sounds, Soft and benign, Non-distended Musculoskeletal: No clubbing, No swelling Integumentary: No rashes, No breakdown, No significant lesion Neurological: Normal gait, Normal speech, Normal strength at 5/5 x4 extr, Normal tone, Sensation intact Lymphatics: No axilla or inguinal lymphadenopathy - Studies Laboratory Data (last 24 hrs) 02/03/24 02/03/24 02/03/24 15:30 15:30 15:30 WBC 17.90 H Hgb 13.0 L Hct 39.7 Plt Count 259 PT 19.9 H INR 1.81 APTT 36.8 Sodium 135 L Potassium 3.5 BUN 29 H Creatinine 1.56 H Glucose 95 Total Bilirubin 1.1 H AST 15 ALT 15 L Alkaline Phosphatase 99 Microbiology Data (last 24 hrs): 02/03/24 15:55 Nasopharnyx Influenza Type A Antigen Screen - Final 02/03/24 15:55 Nasopharnyx Influenza Type B Antigen Screen - Final Assessment And Plan - Plan Severe sepsis 2/2 UTI: Will continue merrem and f/u urine cx. Bacteremia: Blood cx is growing klebsiella pneumonia. Will continue iv abx and f/u blood cx. Lactic acidosis: Lactate improved from 3.1 to 1.9 with IVF. BPH: continue flomax DVT ppx: SCD Dispo: Pending hospital course.
[2024-02-04] MEDS ORDERED: Meropenem 500 MG in NA CHLORIDE 0.9% 100 ML IV SCH (18:35)
[2024-02-04] MEDS: ESZOPICLONE 1 MG TAB PO PRN (21:52)
[2024-02-05] MEDS: Meropenem 1,000 MG in NA CHLORIDE 0.9% 100 ML IV SCH (00:29)
[2024-02-05 08:10] LABS: Absolute Eosinophils 0.1 K/uL (0-0.5); Absolute Lymphocytes (CBC) 0.7 K/uL (0.7-4.9); Absolute Monocytes 0.8 K/uL (0.1-1.3); Absolute Neutrophil 7.1 K/uL (1.8-8.0); Basophils % 0.3 % (0-1.3); Eosinophils % 0.7 % (0-4.4); Hematocrit 35.7 % (39.6-49.0); Hemoglobin 11.8 g/dL (13.6-17.9); Lymphocytes % 8.3 % (15.3-44.8); MCH 31.2 pg (27.0-35.0); MCV 94.5 fL (80-100); MPV 8.3 fL (7.6-11.3); Monocytes % 9.5 % (3.3-12.3); Neutrophils % 81.2 % (41.7-73.7); Platelets 166 thou/uL (152-406); RBC Red Blood Cell Count 3.78 M/uL (4.33-5.43); Red Cell Distribution Width 14.2 % (12.1-15.2)
[2024-02-05 08:27] LABS: Anion Gap 6.1 mEq/L (5.0-15.0); Potassium 3.1 mEq/L (3.5-5.1)
--- NOTE | 2024-02-05 08:27 | P.PN ---
Subjective Date of Service: 02/05/24 Chief Complaint: Urosepsis weakness Pt is resting comfortably in bed. He was mumbling at bedside. Still iv merrem for cystitis. Urine cx is growing klebsiella pneumonia. No other complaints. Review of Systems is unable to be obtained Physical Examination - Vital Signs Temperature: 98.2 F Blood Pressure: 134/70 Pulse: 74 Respirations: 19 Pulse Ox (%): 94 - Physical Exam General: Alert, In no apparent distress HEENT: Atraumatic, Normocephalic Neck: Supple, 2+ carotid pulse no bruit Respiratory: Clear to auscultation bilaterally, Normal air movement Cardiovascular: No edema, Normal pulses, Regular rate/rhythm, Normal S1 S2 Capillary refill: <2 Seconds Gastrointestinal: Normal bowel sounds, Soft and benign, Non-distended Musculoskeletal: No clubbing, No swelling Integumentary: No rashes, No breakdown, No significant lesion Neurological: Normal gait, Normal speech, Normal strength at 5/5 x4 extr, Normal tone, Sensation intact Lymphatics: No axilla or inguinal lymphadenopathy - Studies Microbiology Data (last 24 hrs): 02/03/24 17:05 Clean Catch Urine [place] Count - Final >100,000 CFU/ML. 02/03/24 17:05 Clean Catch Urine - Final Klebsiella Pneumoniae 02/03/24 15:35 Blood - Blood Blood Culture Gram Stain - Final 02/03/24 15:35 Blood - Blood Gram Stain - Final Assessment And Plan - Plan Severe sepsis 2/2 UTI: Will continue merrem and f/u urine cx. Bacteremia: Blood cx is growing gram negative rods. Will continue iv abx and f/u blood cx. Lactic acidosis: Lactate improved from 3.1 to 1.9 with IVF. BPH: continue flomax DVT ppx: SCD Dispo: Pending hospital course.
[2024-02-05 23:54] VITALS: O2SAT 97
[2024-02-06 09:04] LABS: Hematocrit 35.8 % (39.6-49.0); Hemoglobin 12.2 g/dL (13.6-17.9); RBC Red Blood Cell Count 3.85 M/uL (4.33-5.43)
[2024-02-06 09:05] LABS: Absolute Basophils 0.1 K/uL (0-0.5); Absolute Eosinophils 0.1 K/uL (0-0.5); Absolute Lymphocytes (CBC) 0.8 K/uL (0.7-4.9); Absolute Monocytes 0.5 K/uL (0.1-1.3); Absolute Neutrophil 4.3 K/uL (1.8-8.0); Basophils % 1.2 % (0-1.3); Eosinophils % 1.2 % (0-4.4); Lymphocytes % 13.8 % (15.3-44.8); MCH 31.8 pg (27.0-35.0); MCHC 34.3 g/dL (32.0-36.0); MCV 92.8 fL (80-100); MPV 8.7 fL (7.6-11.3); Monocytes % 8.3 % (3.3-12.3); Neutrophils % 75.5 % (41.7-73.7); Nucleated Red Blood Cells % 0.1 % (0-0); Platelets 186 thou/uL (152-406); Red Cell Distribution Width 14.1 % (12.1-15.2)
[2024-02-06 09:14] LABS: Anion Gap 6.2 mEq/L (5.0-15.0); Potassium 3.2 mEq/L (3.5-5.1)
--- NOTE | 2024-02-06 09:19 | P.PN ---
Subjective Date of Service: 02/06/24 Chief Complaint: Urosepsis weakness Pt is resting comfortably in bed. He has difficulty eating his breakfast. Will keep him NPO and consult speech therapy. Pt is getting iv merrem for cystitis. No other complaints. Review of Systems General: Unremarkable Eyes: Unremarkable ENT: Unremarkable Respiratory: Unremarkable Cardiovascular: Unremarkable Gastrointestinal: Unremarkable Genitourinary: Unremarkable Musculoskeletal: Unremarkable Integumentary: Unremarkable Neurological: Unremarkable Lymphatics: Unremarkable Physical Examination - Vital Signs Temperature: 98.7 F Blood Pressure: 145/71 Pulse: 77 Respirations: 16 Pulse Ox (%): 98 - Physical Exam General: Alert, In no apparent distress, Oriented x3 HEENT: Atraumatic, Normocephalic, PERRLA Neck: Supple, 2+ carotid pulse no bruit, JVD not distended Respiratory: Normal air movement, Other (coarse breath sound) Cardiovascular: No edema, Normal pulses, Regular rate/rhythm, Normal S1 S2 Capillary refill: <2 Seconds Gastrointestinal: Normal bowel sounds, Soft and benign, Non-distended Musculoskeletal: No clubbing, No swelling, No contractures Integumentary: No rashes, No breakdown, No significant lesion Neurological: Normal gait, Normal speech, Normal strength at 5/5 x4 extr Lymphatics: No axilla or inguinal lymphadenopathy - Studies Microbiology Data (last 24 hrs): 02/03/24 15:35 Blood - Blood Aerobic Blood Culture - Final Klebsiella Pneumoniae 02/03/24 15:35 Blood - Blood Blood Culture Gram Stain - Final 02/03/24 15:35 Blood - Blood Anaerobic Blood Culture - Final Klebsiella Pneumoniae 02/03/24 15:35 Blood - Blood Gram Stain - Final 02/03/24 17:05 Clean Catch Urine [place] Count - Final >100,000 CFU/ML. 02/03/24 17:05 Clean Catch Urine - Final Klebsiella Pneumoniae Assessment And Plan - Plan Severe sepsis 2/2 UTI: Will continue merrem and f/u urine cx. Possible aspiration. Will keep pt NPO. Consulted speech therapist. Will f/u CXR. Bacteremia: Blood cx is growing klebsiella pneumonia. Will continue iv abx and f/u blood cx. Lactic acidosis: Lactate improved from 3.1 to 1.9 with IVF. BPH: continue flomax DVT ppx: SCD Dispo: Pending hospital course.
[2024-02-06] MEDS: CEFTRIAXONE 2,000 MG in NA CHLORIDE 0.9% 100 ML IV SCH (12:24)
--- NOTE | 2024-02-06 12:25 | RAD REPORT ---
EXAM DESCRIPTION: RADChest Single View02/06/2024 10:03 am CLINICAL HISTORY: r/o aspiration COMPARISON: Chest Single View dated 02/03/2024; Chest Single View dated 03/08/2023; CHEST SINGLE VIEW da kael 09/12/2014 TECHNIQUE: Portable AP view of the chest. FINDINGS: Stable central interstitial prominence and perihilar/ basal reticular opacities more promi nent on the left. No pneumothorax or effusion. The cardiomediastinal contours are unremarkable. IMPRESSION: No significant interval change. Central interstitial prominence more pronounced on the l eft may reflect central congestion or airspace disease.
--- NOTE | 2024-02-06 17:07 | EKG ---
Test Date: 2024-02-03 Test Time: 15:44:22 Boom Boss: LEXX MEASUREMENT RESULTS: Intervals: Rate: 86 NV: 182 QRSD: 100 QT: 358 QTc: 428 [place]: P: 58 NV: 182 QRS: 53 T: 41 INTERPRETIVE STATEMENTS: Sinus rhythm with occasional premature ventricular complexes Otherwise normal ECG Compared to ECG 03/08/2023 15:23:21 Ventricular premature complex(es) now present T-wave abnormality no longer present Electronically Signed On 02-06-24 16:59:26 CDT by Zeus Chandler
--- NOTE | 2024-02-07 10:50 | P.PN ---
Date of Service: 02/07/24 Subjective Was eval by speech therapy on 5 recommend soft diet with thin liquids Review of Systems 10 point ROS negative unless listed in HPI Physical Examination - Vital Signs reviewed - Physical Exam General: Alert, In no apparent distress, Oriented x3 HEENT: Atraumatic, Normocephalic, PERRLA Neck: Supple, 2+ carotid pulse no bruit, JVD not distended Respiratory: Normal air movement, Other (coarse breath sound) Cardiovascular: No edema, Normal pulses, Regular rate/rhythm, Normal S1 S2 Capillary refill: <2 Seconds Gastrointestinal: Normal bowel sounds, Soft and benign, Non-distended Musculoskeletal: No clubbing, No swelling, No contractures Integumentary: No rashes, No breakdown, No significant lesion Neurological: Normal gait, Normal speech, Normal strength at 5/5 x4 extr Lymphatics: No axilla or inguinal lymphadenopathy Assessment And Plan - Plan Severe sepsis without shock 2/2 UTI: Klebsiella pneumonia of the urine Will continue merrem and f/u urine cx. Cipro dc home 7 days po bid Dysphagia possible aspiration. Will keep pt NPO. Consulted speech therapist. Will f/u CXR. Bacteremia: Klebsiella pneumonia positive blood culture Blood cx is growing klebsiella pneumonia. Will continue iv abx and f/u blood cx. Repeat blood culture on 02/03 negative Lactic acidosis: Lactate improved from 3.1 to 1.9 with IVF. BPH: continue flomax DVT ppx: SCD Dispo: Pending hospital course.
[2024-02-07 11:32] VITALS: BP 108/61; TEMP 97.8
--- NOTE | 2024-02-07 12:40 | P.DS ---
Admission Date: 02/03/24 Discharge Date: 02/07/24 Disposition: DC HOME/HOME HEALTH CARE Discharge Condition: GOOD Reason for Admission: Urosepsis weakness Brief History of Present Illness: Patient is 73 years of age admitted to the hospital patient is nonverbal is complaining of feeling weak not eating history obtained from his apparently he has a [place] catheter that was changed and pus was found in the catheter patient is not even walking admitted to the hospital was diagnosed with urosepsis he has had urosepsis a while ago Physical Exam General: Alert, oriented x 2 Respiratory: Clear to auscultation bilaterally Cardiovascular: No edema, Regular rate/rhythm Gastrointestinal: Normal bowel sounds, Soft and benign Musculoskeletal: No clubbing, No swelling Neurological: Other (Patient has left-sided facial asymmetry, lower extremity weakness Hospital Course: 73 years of age he is debilitated from his stroke and has urinary catheter admitted with an infection in his urinalysis shows gross infection patient's white count is elevated to 17.9 renal function is also worsened all labs reviewed chest x-ray shows stable finding of possible multifocal disease patient saturations satisfactory admit to the hospital IV fluids IV meropenem patient has expressive dysphagia from his stroke. He was evaluated by speech therapy, speech therapy on 02/05 recommend soft diet with thin liquids. was noted to to have sepsis without shock,. He was treated with IV merrem while in patient.. Plan to DC home on Cipro home 7 days po bid. Acute cystitis-treated with IV Merrem while inpatient, Discharge on PO antibiot ics Plan to DC home on Cipro home 7 days po bid. #14 Bacteremia: Klebsiella pneumonia positive blood culture. . Repeat blood culture on 02/03 negative. Dc home with continuation HHC. PT OT, skilled nurse continue home medicines as previously prescribed GOAL: Clear understanding of disease process INSTRUCTIONS: Physician Discharge Instructions: -Follow-up with PCP in 1 to 2 weeks -Please call Dr. Norton at [phone] if any questions regarding hospital stay -Please call nursing station at [phone] if any nursing or medication questions -Return to the emergency room if symptoms worsen Diet: ADA, low sodium Activity: Fall precautions Vital Signs/Physical Exam: Temp Pulse Resp BP Pulse Ox 97.8 F 87 16 108/61 98 02/07/24 11:32 02/07/24 11:32 02/07/24 11:32 02/07/24 11:32 02/07/24 11:32 Laboratory Data at Discharge: WBC 5.70 thou/uL (4.3-10.9) 02/06/24 08:20 Hgb 12.2 g/dL (13.6-17.9) L 02/06/24 08:20 Hct 35.8 % (39.6-49.0) L 02/06/24 08:20 Plt Count 186 thou/uL (152-406) 02/06/24 08:20 PT 19.9 SECONDS (9.4-12.5) H 02/03/24 15:30 INR 1.81 02/03/24 15:30 APTT 36.8 SECONDS (24.3-36.9) 02/03/24 15:30 Sodium 143 mEq/L (136-145) 02/06/24 08:20 Potassium 3.2 mEq/L (3.5-5.1) L 02/06/24 08:20 BUN 12 mg/dL (7-18) 02/06/24 08:20 Creatinine 1.10 mg/dL (0.70-1.30) 02/06/24 08:20 Glucose 98 mg/dL (74-106) 02/06/24 08:20 Total Bilirubin 0.6 mg/dL (0.2-1.0) 02/04/24 07:28 AST 17 U/L (15-37) 02/04/24 07:28 ALT < 14 U/L (16-61) L 02/04/24 07:28 Alkaline Phosphatase 85 U/L (45-117) 02/04/24 07:28 Home Medications: Levetiracetam 100 mg SUBQ BID 05/27/15 cloNIDine HCL [Catapres*] 0.1 mg PO TID 05/27/15 Quetiapine [Seroquel*] 25 mg PO BID #0 tab 01/28/23 Apixaban [Eliquis] 5 mg PO BID 02/04/24 Cetirizine HCl 10 mg PO DAILY 02/04/24 Gabapentin 300 mg PO BID 02/04/24 Metoprolol Tartrate [Lopressor*] 25 mg PO BID 02/04/24 Tamsulosin [Flomax*] 0.4 cap PO DAILY 02/04/24 Apixaban [Eliquis] 5 mg PO BID 02/07/24 Ciprofloxacin HCl [Cipro 500 MG Tablet] 500 mg PO BID 7 Days #14 tab 02/07/24 Eszopiclone [Lunesta*] 2 mg PO BEDTIME PRN PRN tab 02/07/24 New Medications: Ciprofloxacin HCl [Cipro 500 MG Tablet] 500 mg PO BID 7 Days #14 tab Physician Discharge Instructions: 73 years of age he is debilitated from his stroke and has urinary catheter admitted with an infection in his urinalysis shows gross infection patient's white count is elevated to 17.9 renal function is also worsened all labs reviewed chest x-ray shows stable finding of possible multifocal disease patient saturations satisfactory admit to the hospital IV fluids IV meropenem patient has expressive dysphagia from his stroke. He was evaluated by speech therapy, speech therapy on 02/05 recommend soft diet with thin liquids. was noted to to have sepsis without shock,. Will continue merrem and f/u urine cx. Plan to DC home on Cipro home 7 days po bid. Bacteremia: Klebsiella pneumonia positive blood culture. Blood cx is growing klebsiella pneumonia. Repeat blood culture on 02/03 negative. Dc home with continuation HHC. Discharge on PO antibiotics Plan to DC home on Cipro home 7 days po bid. #14 continue home medicines as previously prescribed GOAL: Clear understanding of disease process INSTRUCTIONS: Physician Discharge Instructions: -Follow-up with PCP in 1 to 2 weeks -Please call Dr. Norton at [phone] if any questions regarding hospital stay -Please call nursing station at [phone] if any nursing or medication questions -Return to the emergency room if symptoms worsen Diet: ADA, low sodium Activity: Fall precautions Diet: Low sodium Activity: Fall precautions Followup: Boogie Blanco DO [Primary Care Provider] - 1-2 Weeks Time spent managing pt's care (in minutes): 55
--- NOTE | 2024-02-07 15:38 | RAD REPORT ---
EXAM DESCRIPTION: RAD - Barium Swallow Modified - 02/07/2024 2:11 pm CLINICAL HISTORY: Coughing while eating COMPARISON: [facility] Protocol dated 04/06/2023 TECHNIQUE: The patient was given liquid, semi-solid and solid forms of barium. Lateral view fluorosc opic imaging was performed in conjunction with speech pathology service. FINDINGS: Laryngeal penetration with thin fluids. No aspiration identified. Reference speech patholo gy note. Total fluoroscopy time: 6:04
[2024-02-07] MEDS ORDERED: CIPROFLOXACIN HCL 500 MG TAB PO SCH (17:00)
== END 2024-02-07 15:53 | disposition home health service (06) | DRG 698 ==
LOC: ER 15:05 → ERHOLD 18:34 → 2ND 20:20
PROVIDERS: ADMIT Internal Medicine Sleep Medicine; ATTEND Hospitalist
DX: T83.511A Infection and inflammatory reaction due to indwelling urethral catheter, initial encounter (principal); A41.9 Sepsis, unspecified organism; R65.20 Severe sepsis without septic shock; N30.00 Acute cystitis without hematuria; E87.20 Acidosis, unspecified; I10 Essential (primary) hypertension; N40.0 Benign prostatic hyperplasia without lower urinary tract symptoms; I49.3 Ventricular premature depolarization; I69.391 Dysphagia following cerebral infarction; R13.10 Dysphagia, unspecified; B96.1 Klebsiella pneumoniae [K. pneumoniae] as the cause of diseases classified elsewhere; Z79.01 Long term (current) use of anticoagulants; Z11.52 Encounter for screening for COVID-19; Z79.899 Other long term (current) drug therapy; Y84.6 Urinary catheterization as the cause of abnormal reaction of the patient, or of later complication, without mention of misadventure at the time of the procedure
CPT/HCPCS: 36415; 71045; 74230; 80048; 80053; 81001; 82947; 83605; 85025; 85610; 85730; 87040; 87077; 87086; 87088; 87186; 87205; 87804; 87811; 92526; 92610; 92611; 93005; 96361; 96365; 99284; J0696; J2185; J7030

== ENCOUNTER 2024-06-10 09:17 | Inpatient (IN) | payer OTHER ==
[2024-06-10] MEDS ORDERED: NA CHLORIDE 0.9% 500 ML ONE (09:41)
[2024-06-10 09:48] LABS: Absolute Eosinophils 0.2 K/uL (0-0.5); Absolute Lymphocytes (CBC) 1.2 K/uL (0.7-4.9); Absolute Monocytes 0.6 K/uL (0.1-1.3); Basophils % 0.7 % (0-1.3); Eosinophils % 3.3 % (0-4.4); Hematocrit 45.8 % (39.6-49.0); Hemoglobin 14.8 g/dL (13.6-17.9); MCH 31.6 pg (27.0-35.0); MCHC 32.4 g/dL (32.0-36.0); MCV 97.5 fL (80-100); MPV 8.6 fL (7.6-11.3); Monocytes % 9.7 % (3.3-12.3); Neutrophils % 66.3 % (41.7-73.7); Platelets 199 thou/uL (152-406); Red Cell Distribution Width 14.5 % (12.1-15.2)
--- NOTE | 2024-06-10 09:53 | RAD REPORT ---
EXAM: Chest Single View HISTORY: weakness COMPARISON: 02/06/2024 FINDINGS: LUNGS/PLEURA: The lungs are clear. No pleural effusions or pneumothorax. No pulmonary edema. MEDIASTINUM: The mediastinal silhouette is within normal limits. CARDIAC: The cardiac silhouette is within normal limits. UPPER ABDOMEN: No significant abnormality. BONES: No acute fracture. Fusion hardware in the lumbar spine. LINES/TUBES/OTHER: N/A IMPRESSION: No evidence of acute cardiopulmonary disease.
[2024-06-10 10:06] LABS: Specific Gravity 1.025 (1.005-1.030); Sqamous Epithelial <5 /HPF (None Seen); Transitional Epithelial <5 /HPF (None Seen); Urine Bacteria <20 /HPF (<20); Urine Bilirubin NEGATIVE (Negative); Urine Blood 2+ (Negative); Urine Clarity Extremely Turbid (Clear); Urine Color Yellow (Yellow); Urine Culture Reflex Order REFLEXED; Urine Glucose NEGATIVE (Negative); Urine Ketones TRACE (Negative); Urine Micro Reflex YN NO BILL MICROSCOPIC; Urine Mucus 4+ /HPF (None Seen); Urine Nitrite 1+ (Negative); Urine Protein 1+ (Negative); Urine RBC 21-50 /HPF (None Seen); Urine Urobilinogen 1+ (Normal); Urine WBC 20-50 /HPF (<5); Urine pH 6.5 (5.0-7.0)
[2024-06-10 10:08] LABS: Anion Gap 7.8 mEq/L (5.0-15.0); Magnesium 2.2 mg/dL (1.6-2.4); Potassium 3.8 mEq/L (3.5-5.1); Troponin High Sensitivity 4.1 pg/mL (<58.9)
--- NOTE | 2024-06-10 10:53 | RAD REPORT ---
EXAMINATION: CT HEAD WITHOUT CONTRAST CLINICAL INDICATION: Male, 73 years old.WEAKNESS TECHNIQUE: Axial CT images from the skull base to the vertex without intravenous contrast. Coronal an d sagittal reformatted images were created from the data set. One or more of the following dose reduction techniques were used: Automated exposure control, adjustment of the mA and/or kV according to patient size, and/or iterative reconstruction. Unless otherwise specified, incidental findings do not require dedicated imaging follow-up. [id number]. COMPARISON: 01/24/2023 FINDINGS: INTRACRANIAL: No acute intracranial hemorrhage. No hydrocephalus. No mass effect or midline shift. Ri ght parietal encephalomalacia and significant ex vacuo dilatation of the right occipital horn similar to 01/24/2023. VASCULATURE: No visualized abnormalities in the arteries or dural venous sinuses. SCALP/SKULL: Left-sided cochlear implant. Right parietal occipital craniotomy. Left mastoid fluid. SINUSES: The visualized paranasal sinuses and mastoid air cells are predominantly clear. IMPRESSION: No acute intracranial abnormality. Chronic changes.
--- NOTE | 2024-06-10 10:58 | RAD REPORT ---
EXAMINATION: CT ABDOMEN AND PELVIS WITH CONTRAST CLINICAL INDICATION: Male, 73 years old.ABD PAIN TECHNIQUE: CT abdomen and pelvis was performed, after the administration of IV contrast, as [facility]. Axial, sagittal and coronal reconstructions were obtained. One or more of the following dose reduction techniques were used: Automated exposure control, adjustment of the mA and/o r kV according to patient size, and/or iterative reconstruction. Unless otherwise specified, incidental findings do not require dedicated imaging follow-up. [id number]. COMPARISON: 04/06/2023 FINDINGS: LOWER CHEST: Coronary calcifications. Aortic valve calcifications. LIVER: Normal in size and contour. No focal lesion. GALLBLADDER/BILE DUCT: No biliary ductal dilatation.? PANCREAS: No significant abnormality. SPLEEN: Normal size. No focal lesion. ADRENALS: Normal; no mass. KIDNEYS AND URETERS: Bilateral renal lesions which are either benign in appearance or too small to ac curately characterize but statistically benign. GASTROINTESTINAL TRACT: Stomach is non-dilated. Small bowel has normal course and caliber. No colonic wall thickening or pericolonic inflammatory changes. Normal appendix. PERITONEUM: No ascites. Small fat-containing right inguinal hernia. LYMPH NODES: No lymphadenopathy. ABDOMINAL AORTA AND OTHER VESSELS: Normal caliber aorta and IVC. URINARY BLADDER: Circumferentially thickened bladder wall. [place] catheter present within the bladder. Stranding is present. There is some hyperdensity within the dependent aspect of the bladder which could reflect bladder calculi or debris. REPRODUCTIVE ORGANS: No pathologic process MUSCULOSKELETAL: Remote L1 compression fracture with surgical changes from thoracolumbar fusion. Ther e are secondary degenerative changes present. ADDITIONAL FINDINGS: None. IMPRESSION: The bladder is decompressed by a [place] catheter. Significant bladder wall thickening is present which is consistent with chronic bladder outlet obstruction. Perivesical stranding could reflect superimposed cystitis. Correlate with urinalysis.
[2024-06-10] MEDS ORDERED: NA CHLORIDE 0.9% 50 ML ONE (11:13)
[2024-06-10] MEDS ORDERED: CEFTRIAXONE 1000 MG/VIAL ONE (11:13)
--- NOTE | 2024-06-10 14:12 | EDPHYS ---
Physician Documentation [facility] Name: Lamberto Simpson Age: 73 yrs Sex: Male : 1950 Arrival Date: 06/10/2024 Time: 09:17 Bed 19 Private MD: ED Physician Sheng Woo HPI: 06/10 09:30 This 73 yrs old Male presents to ER via EMS with complaints of Possible dehydration. cp 09:30 Patient is a 73-year-old male with past medical history significant for multiple cp strokes that have led to dysphagia and patient being nonambulatory and nonverbal. Patient lives at home with spouse who reports since yesterday patient has had decreased appetite and oral fluid intake. EMS was called because patient was not able to assist in transferring to his wheelchair and seemed weaker than usual. No change in mental status has been observed and no observed vomiting and or diarrhea. Patient has been afebrile but spouse is concerned that patient has become dehydrated. 09:30 weakness. cp Historical: - Allergies: 09:39 No Known Allergies; aa5 - PMHx: 09:17 BPH (Unknown); CVA; Hypertension; Dysphagia (Unknown); Non-ambulatory and non-verbal aa5 (Unknown); UTI (Unknown); - Immunization history:: Adult Immunizations unknown. - Infectious Disease History:: unknown . - Social history:: Smoking status: unknown. ROS: 09:35 Constitutional: Positive for poor PO intake, Negative for fever, cp 09:35 ENT: Negative for difficulty handling secretions, cp 09:35 Respiratory: Negative for cough, wheezing, 09:35 Abdomen/GI: Negative for vomiting, diarrhea, constipation, black/tarry stool, 09:35 Neuro: Positive for weakness, Negative for altered mental status, 09:35 All other systems are negative, Exam: 09:40 Constitutional: The patient appears in no acute distress, alert, awake, cp non-diaphoretic, non-toxic, well developed, well nourished, 09:40 Head/Face: Normocephalic, atraumatic. cp 09:40 Eyes: Periorbital structures: appear normal, Conjunctiva: normal, no exudate, no injection, Sclera: no appreciated abnormality, Lids and lashes: appear normal, bilaterally, 09:40 ENT: External ear(s): are unremarkable, Nose: is normal, Mouth: Lips: dry, Oral mucosa: dry, Posterior pharynx: Airway: no evidence of obstruction, patent, 09:40 Neck: ROM/movement: is normal, is supple, no meningismus, no nuchal rigidity, 09:40 Chest/axilla: Inspection: normal, 09:40 Cardiovascular: Rate: normal, Rhythm: regular, Edema: is not appreciated, JVD: is not appreciated, 09:40 Respiratory: the patient does not display signs of respiratory distress, Respirations: normal, no use of accessory muscles, no retractions, labored breathing, is not present, Breath sounds: are clear throughout, no decreased breath sounds, no stridor, no wheezing, 09:40 Abdomen/GI: Inspection: abdomen appears normal, Bowel sounds: active, all quadrants, Palpation: abdomen is soft and non-tender, in all quadrants, 09:40 Back: pain, is absent, 09:40 Skin: cellulitis, is not appreciated, no rash present. 09:40 Neuro: Orientation: no acute changes, per EMS, Mentation: no acute changes, per EMS, Motor: no acute changes, 10:11 ECG was reviewed by the Attending Physician. Vital Signs: 09:17 BP 126 / 69; Pulse 61; Resp 18 S; Temp 97.8(O); Pulse Ox 100% on R/A; aa5 10:20 BP 112 / 62; Pulse 58; Resp 16 S; Pulse Ox 99% on R/A; aa5 11:15 BP 126 / 92; Pulse 59; Resp 18 S; Pulse Ox 98% on R/A; aa5 13:00 BP 140 / 75; Pulse 63; Resp 18; Pulse Ox 99% ; me1 14:00 BP 145 / 85; Pulse 62; Resp 16; Pulse Ox 100% ; me1 15:00 BP 134 / 79; Pulse 62; Resp 18; Pulse Ox 99% ; me1 16:00 BP 133 / 83; Pulse 62; Resp 18; Pulse Ox 99% ; me1 16:50 BP 152 / 75; Pulse 88; Resp 17; Temp 98.2; Pulse Ox 95% on R/A; me1 MDM: 09:21 Medical Screening Exam initiated cp 14:15 Data reviewed: vital signs, nurses notes, lab test result(s), EKG, radiologic studies, cp CT scan. 14:15 Differential Diagnosis sepsis, dehydration, electrolyte abnormality, uti, pneumonia. cp Management of patient was discussed with the following: Hospitalist: Zeny Danielson BANK MESSENGER will admit to hospitalist services after discussion. I considered the following discharge prescriptions or medication management in the emergency department Medications were administered in the Emergency Department. See MAR. Independent interpretation of the following test(s) in the Emergency Department EKG: See my EKG interpretation above. Historians other than the Patient: Spouse/Significant Other: provides HPI. Response to treatment: the patient's symptoms have mildly improved after treatment. 06/10 09:28 Order name: Basic Metabolic Panel; Complete Time: 10:11 12 10:11 Interpretation: Normal except: CL 108; BUN 19; GFR 65. 06/10 09:28 Order name: CBC with Diff; Complete Time: 10:11 06/10 09:28 Order name: Magnesium; Complete Time: 10:11 06/10 09:28 Order name: Troponin HS; Complete Time: 10:11 06/10 09:28 Order name: Urinalysis W/Microscopic; Complete Time: 10:11 12 10:11 Interpretation: Normal except: [facility] Extremely Turbid; UKET TRACE; UBLD 2+; UPROT 1+; cp UUROB 1+; UNIT 1+; UESTR 500; UWBC 20-50; URBC 21-50; MUCUS 4+; NABEEL Cx 2+. 06/10 10:09 Order name: Urine Culture EDMS 06/10 09:28 Order name: XRAY Chest (1 view); Complete Time: 10:11 06/10 10:12 Order name: CT Head Brain wo Cont; Complete Time: 10:59 06/10 11:00 Interpretation: Report reviewed. 06/10 10:12 Order name: CT Abd/Pelvis - IV Contrast Only; Complete Time: 10:59 06/10 11:01 Interpretation: Report reviewed. 06/10 09:28 Order name: Cardiac monitoring; Complete Time: 09:39 06/10 09:28 Order name: EKG - Nurse/Tech; Complete Time: 10:12 06/10 09:28 Order name: IV Saline Lock; Complete Time: 09:39 06/10 09:28 Order name: Labs collected and sent; Complete Time: 09:39 06/10 09:28 Order name: O2 Per Protocol; Complete Time: 09:39 cp 12 09:28 Order name: O2 Sat Monitoring; Complete Time: 09:39 cp 12 11:02 Order name: PO challenge; Complete Time: 13:54 cp EC:11 Rate is 58 beats/min. Rhythm is regular. [place] interval is normal. QRS interval is normal. cp QT interval is normal. T waves are Inverted in lead aVR. Interpreted by me. Reviewed by me. Administered Medications: 09:48 Drug: NS 0.9% IV 500 ml IV at bolus once; to be given as a bolus over 60 minutes Route: aa5 IV; Rate: bolus; Site: right forearm; 10:18 Follow up: IV Status: Completed infusion; IV Intake: 500ml aa5 11:00 Drug: Rocephin IV 1 grams IV at calculated rate once; Given slow IV push per pharmacy rs5 instructions Route: IV; Rate: calculated rate; Site: right antecubital; 11:05 Follow up: Response: No adverse reaction; IV Status: Completed infusion aa5 Disposition: 06/11 17:27 Chart complete. cp Disposition Summary: 06/10/24 14:12 Hospitalization Ordered Notes: Hospitalization Status: Inpatient Admission cp Provider: Saumya Hall cp Location: Telemetry/MedSurg (Inpatient) cp Condition: Stable cp Problem: new cp Symptoms: have improved cp Bed/Room Type: Standard cp Room Assignment: 203(06/10/24 16:43) eb Diagnosis - Weakness cp - Volume depletion, unspecified cp - UTI/ Urinary tract infection, site not specified cp Forms: - Medication Reconciliation Form cp - SBAR form cp - Leadership Thank You Letter cp Signatures: Dispatcher [employer] Clementina Salcido, RN RN aa5 Colton Romano PA PA cp Alpa Dennis Ricky, RN RN rs5 Corrections: (The following items were deleted from the chart) 06/10 16:43 14:12 cp eb
--- NOTE | 2024-06-10 14:12 | ER ---
Nurse's Notes [facility] Name: Lamberto Simpson Age: 73 yrs Sex: Male : 1950 Arrival Date: 06/10/2024 Time: 09:17 Bed 19 Private MD: Diagnosis: Weakness;Volume depletion, unspecified;UTI/ Urinary tract infection, site not specified Presentation: 06/10 09:17 Acuity: GRIFFIN 3 aa5 09:17 Chief complaint: EMS states: family concerned about dehydration, noticed decreased aa5 urinary output and decreased intake. Coronavirus screen: At this time, the client does not indicate any symptoms associated with coronavirus-19. Ebola Screen: Patient denies travel to an Ebola-affected area in the 21 days before illness onset. Initial Sepsis Screen: Does the patient meet any 2 criteria? No. Patient's initial sepsis screen is negative. Does the patient have a suspected source of infection? No. Patient's initial sepsis screen is negative. Risk Assessment: Do you want to hurt yourself or someone else? Unable to obtain. Onset of symptoms was June 10, 2024. 09:17 Method Of Arrival: EMS: [facility] aa5 Historical: - Allergies: 09:39 No Known Allergies; aa5 - PMHx: 09:17 BPH (Unknown); CVA; Hypertension; Dysphagia (Unknown); Non-ambulatory and non-verbal aa5 (Unknown); UTI (Unknown); - Immunization history:: Adult Immunizations unknown. - Infectious Disease History:: unknown . - Social history:: Smoking status: unknown. Screenin:30 Abuse screen: No signs of abuse noted. aa5 09:30 [facility] ED Fall Risk Assessment (Adult) History of falling in the last 3 months, aa5 including since admission No falls in past 3 months (0 pts) Confusion or Disorientation Yes (5 pts) Intoxicated or Sedated No (0 pts) Impaired Gait Yes (1 pt) Mobility Assist Device Used Yes (1 pt) Altered Elimination Yes (1 pt) Score/Fall Risk Level 3 or more points = High Risk Oriented to surroundings, Maintained a safe environment, Educated pt \T\ family on fall prevention, incl call for assistance when getting out of bed, Hourly rounding (assess needs \T\ fall precautionary measures) done. Nutritional screening: Difficulty chewing/swallowing? Yes. Tuberculosis screening: No symptoms or risk factors identified. Assessment: 09:27 Reassessment: Pt's now at bedside. . aa5 09:27 General: Appears comfortable, Behavior is calm, cooperative. Pain: Unable to use pain aa5 scale. Patient is disoriented. Does not appear to understand pain scale. FLACC scale score is 0 out of 10. Neuro: Level of Consciousness is awake, confused, Oriented to none Pt is non-verbal and unable to follow commands. . Cardiovascular: Heart tones S1 S2 present Rhythm is regular. Respiratory: Airway is patent Respiratory effort is even, unlabored, Respiratory pattern is regular, symmetrical. GI: Abdomen is round non-distended, Bowel sounds present X 4 quads. Abd is soft and non tender X 4 quads. Parent/caregiver reports the patient having decreased intake since yesterday. : De Los Santos in place to gravity drainage. EENT: No signs and/or symptoms were reported regarding the EENT system. Derm: Skin is pink, warm \T\ dry. Musculoskeletal: Pt is non-ambulatory and normally is assisted into wheelchair at times. 10:20 Reassessment: Pt resting in bed with eyes closed, equal and unlabored respirations. . aa5 12:00 Reassessment: Pt resting in bed with eyes closed, pt's at beside. . aa5 Vital Signs: 09:17 BP 126 / 69; Pulse 61; Resp 18 S; Temp 97.8(O); Pulse Ox 100% on R/A; aa5 10:20 BP 112 / 62; Pulse 58; Resp 16 S; Pulse Ox 99% on R/A; aa5 11:15 BP 126 / 92; Pulse 59; Resp 18 S; Pulse Ox 98% on R/A; aa5 13:00 BP 140 / 75; Pulse 63; Resp 18; Pulse Ox 99% ; me1 14:00 BP 145 / 85; Pulse 62; Resp 16; Pulse Ox 100% ; me1 15:00 BP 134 / 79; Pulse 62; Resp 18; Pulse Ox 99% ; me1 16:00 BP 133 / 83; Pulse 62; Resp 18; Pulse Ox 99% ; me1 16:50 BP 152 / 75; Pulse 88; Resp 17; Temp 98.2; Pulse Ox 95% on R/A; me1 ED Course: 09:17 Arm band placed on Patient placed in an exam room, on a stretcher. aa5 09:17 Patient has correct armband on for positive identification. Bed in low position. Call aa5 light in reach. Side rails up X2. Pulse ox on. NIBP on. 09:21 Patient arrived in ED. eb 09:21 Colton Romano PA is PHCP. cp 09:21 Sheng Woo MD is Attending Physician. cp 09:26 Clementina Perales, RN is Primary Nurse. aa5 09:30 Triage completed. aa5 09:36 Initial lab(s) drawn, by me, sent to lab. aa5 09:39 Maintain EMS IV. Dressing intact. Good blood return noted. Site clean \T\ dry. Gauge \T\ aa 5 site: 20G to R FA . Flushed with 10 mL NS. 09:45 XRAY Chest (1 view) In Process Unspecified. EDMS 10:07 EKG done, by ED staff, reviewed by Colton LI. mb4 10:45 CT Head Brain wo Cont In Process Unspecified. EDMS 10:48 CT Abd/Pelvis - IV Contrast Only In Process Unspecified. EDMS 12:00 No provider procedures requiring assistance completed. aa5 12:50 Report given to MADDI Forbes. aa5 14:10 Saumya Hall is Hospitalizing Provider. cp 16:52 Provided Education on: POC. verbalized understanding.. me1 16:52 Patient admitted, IV remains in place. me1 Administered Medications: 09:48 Drug: NS 0.9% IV 500 ml IV at bolus once; to be given as a bolus over 60 minutes Route: aa5 IV; Rate: bolus; Site: right forearm; 10:18 Follow up: IV Status: Completed infusion; IV Intake: 500ml aa5 11:00 Drug: Rocephin IV 1 grams IV at calculated rate once; Given slow IV push per pharmacy rs5 instructions Route: IV; Rate: calculated rate; Site: right antecubital; 11:05 Follow up: Response: No adverse reaction; IV Status: Completed infusion aa5 Medication: 11:58 VIS not applicable for this client. aa5 Intake: 10:18 IV: 500ml; Total: 500ml. aa5 Outcome: 14:12 Decision to Hospitalize by Provider. cp 16:52 Admitted to Med/surg accompanied by tech, via stretcher, room 203, with chart, Report me1 called to faxed, receipt confirmed with Taty. 16:52 Condition: stable 16:52 Instructed on the need for admit, 17:43 Patient left the ED. me1 Signatures: Dispatcher [employer] Clementina Salcido, RN RN aa5 Colton Romano PA PA cp Botello, Elizabeth eb Baxter, Mackenzie mb4 Darius Zapata RN RN rs5 Leidy Oscar RN RN me1 Corrections: (The following items were deleted from the chart) 11:58 09:21 Arm band placed on Patient placed in an exam room, on a stretcher, aa5 aa5
[2024-06-10] MEDS ORDERED: ONDANSETRON 4 MG/2 ML VIAL IV PRN (15:30)
[2024-06-10] MEDS ORDERED: ZOLPIDEM TARTRATE 5 MG TABLET PO PRN (15:30)
[2024-06-10] MEDS ORDERED: ACETAMINOPHEN 325 MG TABLET PO PRN (15:30)
[2024-06-10] MEDS ORDERED: ACETAMINOPHEN 500 MG TAB PO PRN (15:30)
[2024-06-10] MEDS ORDERED: ALBUTEROL 2.5 MG/3 ML NEB SOL NEB PRN (15:30)
[2024-06-10] MEDS ORDERED: MAGNESIUM HYDROXIDE 8% 30 ML PO PRN (15:30)
--- NOTE | 2024-06-10 16:47 | P.HP ---
Certification for Inpatient Patient admitted to: Observation With expected LOS: <2 Midnights Patient will require the following post-hospital care: Rehabilitation (would like to go to [facility]) Practitioner: I am a practitioner with admitting privileges, knowledge of patient current condition, hospital course, and medical plan of care. Services: Services provided to patient in accordance with Admission requirements found in Title 42 Section 412.3 of the Code of Federal Regulations Patient History Date of Service: 06/10/24 Reason for admission: dehydration, weakness, chronic UTI History of Present Illness: Mr. Simpson is a 73-year-old gentleman status post CVA with dysphagia, ataxia, aphasia, CKD and a neurogenic bladder on chronic anticoagulation. He has had an indwelling De Los Santos for several years. In preparation for his suprapubic catheter he saw Dr. Morrison 1 week ago. He has been taking Bactrim. His has been able to assist with transfers with a gait belt however Mr. Simpson has become so weak he is not able to assist with transfers. He appears mildly dehydrated. They request transfer to [facility] in [place] as he has been there 3 times with great results. We will give him gentle hydration, Rocephin, and speak with social media marketing manager regarding admission to [facility]. The family does have home health with PT through [email or web address] Allergies No Known Drug Allergies Allergy (Verified 01/25/23 18:30) Unknown Home Medications: Levetiracetam 100 mg SUBQ BID 05/27/15 cloNIDine HCL [Catapres*] 0.1 mg PO TID 05/27/15 Quetiapine [Seroquel*] 25 mg PO BID #0 tab 01/28/23 Apixaban [Eliquis] 5 mg PO BID 02/04/24 Cetirizine HCl 10 mg PO DAILY 02/04/24 Gabapentin 300 mg PO BID 02/04/24 Metoprolol Tartrate [Lopressor*] 25 mg PO BID 02/04/24 Tamsulosin [Flomax*] 0.4 cap PO DAILY 02/04/24 Apixaban [Eliquis] 5 mg PO BID 02/07/24 Ciprofloxacin HCl [Cipro 500 MG Tablet] 500 mg PO BID 7 Days #14 tab 02/07/24 Eszopiclone [Lunesta*] 2 mg PO BEDTIME PRN PRN tab 02/07/24 - Past Medical/Surgical History Has patient received pneumonia vaccine in the past: No Diabetic: No -: HYPERTENSION -: HX CVA -: expressive aphaisa -: YOCHA DEHE -: Chronic anticoagulation -: CKD (Dr. Blanco) -: SKIN GRAFTS FROM BLE -: RECONSTRUCTION OF ARMS/HANDS -: CERVICAL FUSION -: Peg placement -: Brain surgery for nocardia infection Psychosocial/ Personal History: Lives at home with his , generally works on his computer, transfers with assist to and moves about their home - Family History Family History: Reviewed- Non-Contributory - Social History Smoking Status: Never smoker Alcohol use: No CD- Drugs: Yes Caffeine use: No Place of Residence: Home Review of Systems 10-point ROS is otherwise unremarkable General: Weakness, Malaise Eyes: Unremarkable ENT: Unremarkable Respiratory: Unremarkable Cardiovascular: Unremarkable Gastrointestinal: Unremarkable Musculoskeletal: Other (weakness and unable to assist with transfers) Integumentary: Unremarkable Neurological: Weakness Lymphatics: Unremarkable Physical Examination - Physical Exam General: Alert, In no apparent distress, Oriented x3, Other (unable to voice intelligible speech but understands) HEENT: Atraumatic, Normocephalic, Other (has a cochlear implant but it is not working) Neck: JVD not distended Respiratory: Normal air movement Cardiovascular: Regular rate/rhythm Capillary refill: <2 Seconds Gastrointestinal: Normal bowel sounds Musculoskeletal: No clubbing, Other (poor mobility) Integumentary: No rashes, Other (areas of grafting from distant tapia) Neurological: Abnormal speech, Abnormal strength, Abnormal tone, Abnormal affect Lymphatics: No axilla or inguinal lymphadenopathy External genitalia: Deferred Rectal: Deferred - Studies Laboratory Data (last 24 hrs) 06/10/24 06/10/24 09:36 09:36 WBC 6.00 Hgb 14.8 Hct 45.8 Plt Count 199 Sodium 142 Potassium 3.8 BUN 19 H Creatinine 1.18 Glucose 99 Magnesium 2.2 Assessment and Plan - Plan Dehydration with weakness Gentle hydration Continue to monitor kidney function Chronic indwelling De [place] Santos with UTI Rocephin daily [facility] at [facility] Consult social media marketing manager Plan to discharge in: 24 Hours - Advance Directives Does patient have a Living Will: No Does patient have a Durable POA for Healthcare: No - Code Status/Comfort Care Code Status Assessed: Yes (Full)
[2024-06-10] MEDS: METOPROLOL TAR 25 MG TAB PO SCH (18:00)
[2024-06-10] MEDS: D5.45NS W/KCL 20MEQ 1,000 ML IV SCH (18:37)
[2024-06-10] MEDS: APIXABAN 5 MG TABLET PO SCH (21:00)
[2024-06-10] MEDS: GABAPENTIN 300 MG CAP PO SCH (21:00)
[2024-06-10] MEDS: QUETIAPINE 25 MG TAB PO SCH (21:00)
[2024-06-10 22:06] VITALS: BMI 22.0
[2024-06-11] MEDS ORDERED: ENOXAPARIN 40 MG/0.4 ML SQ SCH (09:00)
--- NOTE | 2024-06-11 09:07 | P.PN ---
Date of Service: 06/11/24 Subjective looks more hydrated, sleeping in no distress Review of Systems 10-point ROS is otherwise unremarkable General: Weakness Eyes: Unremarkable ENT: Unremarkable Respiratory: Unremarkable Cardiovascular: Unremarkable Gastrointestinal: Unremarkable Musculoskeletal: Other (weakness and unable to assist with transfers) Integumentary: Unremarkable Neurological: Weakness Lymphatics: Unremarkable Physical Examination - Physical Exam General: In no apparent distress HEENT: Atraumatic, Normocephalic, Other (has a cochlear implant but it is not working) Neck: JVD not distended Respiratory: Normal air movement Cardiovascular: Regular rate/rhythm Capillary refill: <2 Seconds Gastrointestinal: Normal bowel sounds Musculoskeletal: No clubbing, Other (poor mobility) Integumentary: No rashes, Other (areas of grafting from distant tapia) Neurological: Abnormal speech, Abnormal strength, Abnormal tone, Abnormal affect Lymphatics: No axilla or inguinal lymphadenopathy External genitalia: Deferred Rectal: Deferred - Studies Laboratory Data (last 24 hrs) 06/10/24 06/10/24 09:36 09:36 WBC 6.00 Hgb 14.8 Hct 45.8 Plt Count 199 Sodium 142 Potassium 3.8 BUN 19 H Creatinine 1.18 Glucose 99 Magnesium 2.2 Assessment and Plan - Plan Dehydration with weakness Gentle hydration Continue to monitor kidney function Chronic indwelling [place] with UTI Rocephin daily [facility] Consult social work assistant and PT Plan to discharge in: 24 Hours - Advance Directives Does patient have a Living Will: No Does patient have a Durable POA for Healthcare: No - Code Status/Comfort Care Code Status Assessed: Yes (Full) <Zeny Danielson - Last Filed: 06/11/24 09:07> Chart has been reviewed. Events of the last 24 hours have been noted. Case discussed with CLIVE. I performed a substantial part of the MDM during this patient's care today. I personally made or approved the documented management plan and acknowledge its risk of complications. I agree with the findings and documentation provided in the CLIVE's notes <Catalina Norton - Last Filed: 06/19/24 01:45>
[2024-06-11] MEDS: TAMSULOSIN 0.4 MG SR CAP PO SCH (10:06)
[2024-06-11] MEDS: CEFTRIAXONE 1,000 MG in NA CHLORIDE 0.9% 50 ML IVPB SCH (16:37)
[2024-06-12 09:55] VITALS: O2SAT 99
[2024-06-12] MEDS: Meropenem 1,000 MG in NA CHLORIDE 0.9% 100 ML IV SCH (10:25)
[2024-06-12 12:32] VITALS: TEMP 98
[2024-06-12 16:31] VITALS: BP 135/69
--- NOTE | 2024-06-12 18:22 | P.PN ---
Date of Service: 06/12/24
--- NOTE | 2024-06-12 18:55 | P.DS ---
Admission Date: 06/10/24 Discharge Date: 06/12/24 Reason for Admission: dehydration, weakness, chronic UTI Brief History of Present Illness: Mr. Simpson is a 73-year-old gentleman status post CVA with dysphagia, ataxia, aphasia, CKD and a neurogenic bladder on chronic anticoagulation. He has had an indwelling De [place] Santos for several years. In preparation for his suprapubic catheter he saw Dr. Morrison 1 week ago. He has been taking Bactrim. His has been able to assist with transfers with a gait belt however Mr. Simpson has become so weak he is not able to assist with transfers. He appears mildly dehydrated. They request transfer to [facility] in [place] as he has been there 3 times with great results. We will give him gentle hydration, Rocephin, and speak with social insurance analyst regarding admission to [facility]. The family does have home health with PT through [facility] - Physical Exam General: Alert, In no apparent distress, Oriented x3, Other HEENT: Atraumatic, Normocephalic, Other (has a cochlear implant but it is not working) Neck: JVD not distended Respiratory: Normal air movement Cardiovascular: Regular rate/rhythm Capillary refill: <2 Seconds Gastrointestinal: Normal bowel sounds Musculoskeletal: No clubbing, Other (poor mobility) Integumentary: No rashes, Other (areas of grafting from distant tapia) Neurological: Abnormal speech, Abnormal strength, Abnormal tone, Abnormal affect Lymphatics: No axilla or inguinal lymphadenopathy Hospital Course: 73-year-old gentleman status post CVA with dysphagia, ataxia, aphasia, CKD and a neurogenic bladder on chronic anticoagulation. He has had an indwelling De [place] Santos for several years. In preparation for his suprapubic catheter he saw Dr. Morrison 1 week ago. He has been taking Bactrim. His has been able to assist with transfers with a gait belt however Mr. Simpson has become so weak he is not able to assist with transfers. He appears mildly dehydrated. They request transfer to [facility] in [place] as he has been there 3 times with great results. We will give him gentle hydration, Rocephin, and speak with social insurance analyst regarding admission to [facility]. The family does have home health with PT through [facility]. She was admitted for dehydration, generalized weakness, treated with IV fluids, patient has a chronic indwelling [place] catheter, was noted to have a UTI, treated with IV antibiotics. Was seen by physical therapy for PT eval. tolerating diet, stable to discharge to acute inpatient rehab PICC line to be placed at [facility]. [facility]. Per case management UA positive for Proteus Mirabilis discharged home on Invanz 1 g daily for 7 days Assessment Dehydration with generalized weakness treated with IV fluids-plan to discharge to acute inpatient rehab-discharge on Invanz 1 g daily for 7 days PICC line placed for IV antibiotic Chronic indwelling [place] catheter with UTI, treated with IV antibiotics, Continue home medicines as previously prescribed GOAL: Clear understanding of disease process INSTRUCTIONS: Physician Discharge Instructions: -Follow-up with cardiology after discharge -Follow-up with PCP in 1 to 2 weeks -Please call Dr. Norton at [phone] if any questions regarding hospital stay -Please call nursing station at [phone] if any nursing or medication questions -Return to the emergency room if symptoms worsen Diet: ADA, low sodium Activity: Fall precautions <Cee Parra - Last Filed: 06/12/24 18:49> Admission Date: 06/10/24 Discharge Date: 06/12/24 Hospital Course: Chart has been reviewed. Events of the last 24 hours have been noted. Case discussed with CLIVE. I performed a substantial part of the MDM during this patient's care today. I personally made or approved the documented management plan and acknowledge its risk of complications. I agree with the findings and documentation provided in the CLIVE's notes <Catalina Norton - Last Filed: 06/19/24 01:46> Disposition: TRANSFER TO INPATIENT REHAB Discharge Condition: GOOD Vital Signs/Physical Exam: Temp Pulse Resp BP Pulse Ox 98.0 F 71 16 135/69 100 06/12/24 16:00 06/12/24 16:00 06/12/24 16:00 06/12/24 16:00 06/12/24 16:00 Laboratory Data at Discharge: WBC 6.00 thou/uL (4.3-10.9) 06/10/24 09:36 Hgb 14.8 g/dL (13.6-17.9) 06/10/24 09:36 Hct 45.8 % (39.6-49.0) 06/10/24 09:36 Plt Count 199 thou/uL (152-406) 06/10/24 09:36 Sodium 142 mEq/L (136-145) 06/10/24 09:36 Potassium 3.8 mEq/L (3.5-5.1) 06/10/24 09:36 BUN 19 mg/dL (7-18) H 06/10/24 09:36 Creatinine 1.18 mg/dL (0.70-1.30) 06/10/24 09:36 Glucose 99 mg/dL (74-106) 06/10/24 09:36 Magnesium 2.2 mg/dL (1.6-2.4) 06/10/24 09:36 <Cee Parra - Last Filed: 06/12/24 18:49> Vital Signs/Physical Exam: Temp Pulse Resp BP Pulse Ox 98.0 F 71 16 135/69 100 06/12/24 16:00 06/12/24 16:00 06/12/24 16:00 06/12/24 16:00 06/12/24 16:00 General: Alert, In no apparent distress, Oriented x3 Laboratory Data at Discharge: WBC 6.00 thou/uL (4.3-10.9) 06/10/24 09:36 Hgb 14.8 g/dL (13.6-17.9) 06/10/24 09:36 Hct 45.8 % (39.6-49.0) 06/10/24 09:36 Plt Count 199 thou/uL (152-406) 06/10/24 09:36 Sodium 142 mEq/L (136-145) 06/10/24 09:36 Potassium 3.8 mEq/L (3.5-5.1) 06/10/24 09:36 BUN 19 mg/dL (7-18) H 06/10/24 09:36 Creatinine 1.18 mg/dL (0.70-1.30) 06/10/24 09:36 Glucose 99 mg/dL (74-106) 06/10/24 09:36 Magnesium 2.2 mg/dL (1.6-2.4) 06/10/24 09:36 <Catalina Norton - Last Filed: 12/17/24 01:46> Diet: AHA Activity: Fall precautions Time spent managing pt's care (in minutes): 45 <Cee Parra - Last Filed: 06/12/24 18:49> <Catalina Norton - Last Filed: 06/19/24 01:46> Home Medications: Levetiracetam 100 mg SUBQ BID 05/27/15 cloNIDine HCL [Catapres*] 0.1 mg PO TID 05/27/15 Quetiapine [Seroquel*] 25 mg PO BID #0 tab 01/28/23 Apixaban [Eliquis] 5 mg PO BID 02/04/24 Cetirizine HCl 10 mg PO DAILY 02/04/24 Gabapentin 300 mg PO BID 02/04/24 Metoprolol Tartrate [Lopressor*] 25 mg PO BID 02/04/24 Tamsulosin [Flomax*] 0.4 cap PO DAILY 02/04/24 Apixaban [Eliquis] 5 mg PO BID 02/07/24 Ciprofloxacin HCl [Cipro 500 MG Tablet] 500 mg PO BID 7 Days #14 tab 02/07/24 Eszopiclone [Lunesta*] 2 mg PO BEDTIME PRN PRN tab 02/07/24 Physician Discharge Instructions: -DC IV and DC home -Follow-up with PCP in 1 to 2 weeks -Follow-up with Cardiology in 1 to 2 weeks -Please call Dr. Norton at [phone] if any questions regarding hospital stay -Please call nursing station at [phone] if any nursing or medication ques tions -Return to the emergency room if symptoms worsen -PT consult for eval and treatment; -SS consult for PICC line placement -Invanz 1000 mg IVPB daily x 7 days -Flush PICC/midline line with 5-10cc NS before and after IV abx infusion -CBC, BMP in 1 week -Change dressing of Midline/PICC line per protocol -Remove PICC/midline line after completion of IV abx Followup: Boogie Blanco DO [Primary Care Provider] -
[2024-06-12] MEDS ORDERED: ENSURE ENLIVE 237 ML CAN PO SCH (21:00)
[2024-06-12] MEDS ORDERED: Mupirocin NASAL 2 APPL/1 GM TUBE NAS SCH (21:00)
--- NOTE | 2024-06-15 16:08 | EKG ---
Test Date: 2024-06-10 Test Time: 10:04:14 Pocket Secretary Assembler: MB MEASUREMENT RESULTS: Intervals: Rate: 58 CO: 140 QRSD: 88 QT: 438 QTc: 429 [place]lin: P: 100 CO: 140 QRS: 63 T: 67 INTERPRETIVE STATEMENTS: Sinus bradycardia Otherwise normal ECG Compared to ECG 02/03/2024 15:44:22 Sinus rhythm no longer present Ventricular premature complex(es) no longer present Electronically Signed On 06-15-24 15:58:17 IMMIGRATION MANAGER by Dejon Arreguin
== END 2024-06-12 18:24 | DRG 641 ==
LOC: ER 09:17 → ERHOLD 15:30 → 2ND 16:52
PROVIDERS: ADMIT Internal Medicine; ATTEND Hospitalist
PROC: 02HV33Z Insertion of Infusion Device into Superior Vena Cava, Percutaneous Approach (ICD-10-PCS; principal; 2024-06-12)
DX: E86.0 Dehydration (principal); T83.511A Infection and inflammatory reaction due to indwelling urethral catheter, initial encounter; N39.0 Urinary tract infection, site not specified; E86.9 Volume depletion, unspecified; N18.9 Chronic kidney disease, unspecified; N31.9 Neuromuscular dysfunction of bladder, unspecified; N40.0 Benign prostatic hyperplasia without lower urinary tract symptoms; R13.10 Dysphagia, unspecified; I69.391 Dysphagia following cerebral infarction; I69.393 Ataxia following cerebral infarction; I69.320 Aphasia following cerebral infarction; Z79.01 Long term (current) use of anticoagulants; Z79.899 Other long term (current) drug therapy; Z96.21 Cochlear implant status
CPT/HCPCS: 36415; 70450; 71045; 74177; 80048; 81001; 83735; 84484; 85025; 87077; 87086; 87088; 87186; 93005; 96374; 97112; 97161; 97530; 99285; J0696; J2185; J7040; Q9967